=== PATIENT | male | born 1945 | race Caucasian/White ===

== ENCOUNTER 2021-01-17 14:09 | Inpatient (IN) ==
[2021-01-17] MEDS ORDERED: SODIUM CHLORIDE 0.9% 500 ML IV STA (14:21)
--- NOTE | 2021-01-17 14:28 | Emergency Department Note ---
Impression & Plan 2019 novel coronavirus-infected pneumonia (NCIP), Non-ST elevation NM (NSTEMI), Weakness, Dehydration, Hypoxia, Hypokalemia ED Provider Note Provider: Wilton Woodward MD DATE OF SERVICE: 01/17/2021 CHIEF COMPLAINT: Weakness, hypoxia HISTORY OF PRESENT ILLNESS: Patient is a 75-year-old gentleman patient presenting via ambulance today for hypoxia and increased weakness. Patient has a PEG tube and has been receiving feedings. Patient evidently tested positive for Covid on the fifth of this month. Patient is unvaccinated for Covid. Patient's been more weak and now requiring additional assistance to ambulate and transfer and was noted to be hypoxic into the 80s on room air patient does not normally on oxygen. Has been receiving dexamethasone for the last several days since January 13. Patient's outpatient x-ray had question of possible pneumonia and the patient has completed 4 days of Levaquin 750 mg by mouth. Patient denies pain to me on exam but is very fatigued and difficult to get a clear history from. Past medical history includes type 2 diabetes, CAD, CKD, and myasthenia gravis. REVIEW OF SYSTEMS: A total of 10 review of systems was obtained and negative except as stated above in the HPI. PAST MEDICAL HISTORY: As noted above MEDICATIONS: reviewed home/fpc facility medication list SOCIAL HISTORY: Resides at [facility] PHYSICAL EXAM: GENERAL: alert to verbal stimuli but appears quite fatigued and not the best historian regarding recent events Head: normocephalic and atraumatic EYES: No injection, discharge or icterus. PERRL NECK: Trachea midline. Supple. ENT: Mucous membranes pink and somewhat dry. LUNGS: Airway patent. No retractions. Breath sounds clear HEART: Regular rate and rhythm. No chest wall tenderness ABDOMEN: Soft and non-tender, without guarding or rebound. With left upper quadrant PEG tube in place. SKIN: Acyanotic, warm, dry, without rashes EXTREMITIES: Without significant swelling of the lower extremities. No significant tenderness at the lower calves. NEUROLOGICAL: Patient moving all extremities with some minimally dysarthric at some times. He is quite hard of hearing. Follows simple commands. EK bpm normal sinus rhythm no PVC or PAC. QTc of 594. Incomplete left bundle branch block is present with diffuse T wave inversions noted. CONTINUOUS CARDIAC MONITORING: was ordered and showed a heart rate of 60-80s bpm in sinus rhythm with incomplete left bundle branch block. Patient's laboratory studies and imaging reviewed. Differential includes Infection, dehydration, metabolic abnormality, hypo/hyperglycemia, electrolyte disturbance, anemia, hypoxia, cardiac sources, i ntracerebral event, toxicologic, neurologic, as well as other pathologies. IMPRESSION/MEDICAL DECISION MAKING: Patient positive for Covid now hypoxic. Has been receiving dexamethasone including earlier today. Patient outpatient x-ray is concerning for pneumonia and completed 4 days of Levaquin. Patient is on amiodarone and appears to have an prolonged QTC here today. Will avoid additional QT prolonging medications. Patient did receive the dexamethasone already today. Now on supplemental nasal cannula oxygen. Basic labs were obtained. Patient without significant cytosis and minimal anemia of 13.3. CKD with a creatinine 1.96 and BUN of 56 with his dry mucous membranes I am somewhat concerned for dehydration. Given a small 500 mL IV fluid bolus. Troponin is elevated 0.38 although the patient does not currently have chest pain. Question of his demand from his hypoxia. Mild hy pokalemia noted and some placement is ordered given the QTC prolongation. Lower suspicion that he is acutely suffering from PEs given his + Covid status and minimal hypoxia here. Feel at this time further care as an inpatient is needed. Do not feel additional antibiotics would be that beneficial at this point will defer any to the inpatient team. Patient is reportedly full code. DIAGNOSIS: COVID-19 pneumonia, hypoxia, NSTEMI, weakness, dehydration DISPOSITION: Hospitalist will evaluate Critical Care I have personally spent 32 minutes of critical care time in the direct management of this patient. This includes bedside care, interpretation of diagnostic studies, and testing, discussion with consultants, patient, and other required patient management activities. These 32 minutes is in excess of all separately billable procedures. Past Med/Surg History Social History Smoking Status: Unknown if ever smoked Feels Safe at Home: Yes Allergies Allergies Allergy/AdvReac Type Severity Reaction Status Date / Time oxytetracycline Allergy Unknown Verified 01/17/21 17:04 [From Terramycin] Penicillins Allergy Unknown Verified 01/17/21 17:04 Tetracyclines Allergy Unknown Verified 01/17/21 17:04 Home Meds Home Medications Medication Instructions Recorded Confirmed acetaminophen 325 mg tablet 650 mg FEEDING TUBE Q4 PRN 01/17/21 01/17/21 (Tylenol) allopurinol 100 mg tablet 100 mg FEEDING TUBE DAILY 10/09/21 10/09/21 amiodarone 200 mg tablet 200 mg FEEDING TUBE DAILY 01/17/21 01/17/21 atorvastatin 40 mg tablet 40 mg FEEDING TUBE QPM 01/17/21 01/17/21 carvedilol 6.25 mg tablet 6.25 mg FEEDING TUBE BID 01/17/21 01/17/21 cholecalciferol (vitamin D3) 25 25 mcg FEEDING TUBE DAILY 01/17/21 01/17/21 mcg (1,000 unit) capsule (Vitamin D3) clopidogrel 75 mg tablet 75 mg FEEDING TUBE DAILY 01/17/21 01/17/21 dexamethasone 6 mg tablet 6 mg PO DAILY 01/17/21 01/17/21 famotidine 20 mg tablet 20 mg FEEDING TUBE DAILY 01/17/21 01/17/21 furosemide 20 mg tablet 20 mg FEEDING TUBE QAM 01/17/21 01/17/21 guaifenesin 100 mg/5 mL oral 0 mg PO Q4H PRN 01/17/21 01/17/21 liquid (Robafen) hydralazine 10 mg tablet 5 mg FEEDING TUBE BID 01/17/21 01/17/21 insulin glargine 100 unit/mL (3 14 unit SUBCUT HS 01/17/21 01/17/21 mL) subcutaneous pen (Lantus Solostar U-100 Insulin) ipratropium 0.5 mg-albuterol 3 mg 3 ml INHALATION Q4 PRN 01/17/21 01/17/21 (2.5 mg base)/3 mL nebulization soln isosorbide dinitrate 10 mg tablet 10 mg FEEDING TUBE TID 01/17/21 01/17/21 levofloxacin 750 mg tablet 750 mg FEEDING TUBE DAILY 01/17/21 01/17/21 loperamide 2 mg tablet 2 mg FEEDING TUBE QID PRN 01/17/21 01/17/21 melatonin 5 mg tablet 10 mg PO HS 01/17/21 01/17/21 nut.tx.imp.renal fxn,lac-reduc 237 ea FEEDING TUBE QID 01/17/21 01/17/21 0.04 gram-1.8 kcal/mL oral liquid (Suplena Carb Steady) ondansetron HCl 4 mg tablet 4 mg PO Q6H PRN 01/17/21 01/17/21 (Zofran) potassium chloride 20 mEq 20 meq PO DAILY 01/17/21 01/17/21 tablet,extended release(part/cryst) pyridostigmine bromide 60 mg tablet 60 mg FEEDING TUBE TID 01/17/21 01/17/21 Results & Data (ED) Vital Signs Vital Signs - 24 hr 01/17/21 14:20 01/17/21 14:21 01/17/21 14:30 Temperature 36.9 C Temperature Source Oral Pulse Rate 66 71 68 Pulse Rate from SpO2 Sensor 66 69 Respiratory Rate 18 31 H 20 Respiratory Effort / Characteristics Non-Labored Respiratory Depth Normal Respiratory Pattern Regular Blood Pressure 152/73 H Blood Pressure Mean 99 Pulse Oximetry 97 95 94 Oxygen Delivery Method Nasal Cannula Oxygen Flow Rate 3 Sepsis Recent Fever Within 48 Hours No Sepsis New/Unexplained Change in Mental Status No Sepsis Action Taken by Nursing No Action Required Oxygen Flow Rate - Titration 3 Pulse Oximetry Post Tiitration 97 01/17/21 15:00 01/17/21 15:30 01/17/21 16:00 Temperature Temperature Source Pulse Rate 66 65 68 Pulse Rate from SpO2 Sensor 62 Respiratory Rate 27 H 22 22 Respiratory Effort / Characteristics Respiratory Depth Respiratory Pattern Blood Pressure 145/67 H 156/68 H 151/65 H Blood Pressure Mean 93 97 93 Pulse Oximetry 96 96 97 Oxygen Delivery Method Nasal Cannula Oxygen Flow Rate 3 Sepsis Recent Fever Within 48 Hours Sepsis New/Unexplained Change in Mental Status Sepsis Action Taken by Nursing Oxygen Flow Rate - Titration Pulse Oximetry Post Tiitration 01/17/21 16:30 01/17/21 17:00 01/17/21 17:30 Temperature Temperature Source Pulse Rate 63 61 63 Pulse Rate from SpO2 Sensor Respiratory Rate 22 22 22 Respiratory Effort / Characteristics Respiratory Depth Respiratory Pattern Blood Pressure 155/65 H 148/67 H Blood Pressure Mean 95 94 Pulse Oximetry 95 96 95 Oxygen Delivery Method Nasal Cannula Oxygen Flow Rate 3 Sepsis Recent Fever Within 48 Hours Sepsis New/Unexplained Change in Mental Status Sepsis Action Taken by Nursing Oxygen Flow Rate - Titration Pulse Oximetry Post Tiitration 01/17/21 18:00 01/17/21 18:30 Temperature Temperature Source Pulse Rate 60 63 Pulse Rate from SpO2 Sensor Respiratory Rate 22 22 Respiratory Effort / Characteristics Respiratory Depth Respiratory Pattern Blood Pressure 157/86 H Blood Pressure Mean 109 Pulse Oximetry 95 93 Oxygen Delivery Method Nasal Cannula Oxygen Flow Rate 3 Sepsis Recent Fever Within 48 Hours Sepsis New/Unexplained Change in Mental Status Sepsis Action Taken by Nursing Oxygen Flow Rate - Titration Pulse Oximetry Post Tiitration Laboratory Data Result diagrams: 01/17/21 14:20 01/17/21 14:20 Lab Results 01/17/21 01/17/21 01/17/21 Range/Units 14:20 14:20 14:20 WBC 8.92 (4.8-10.8) K/uL RBC 4.05 L (4.7-6.1) M/uL Hgb 13.3 L (14.0-18.0) g/dL Hct 39.7 L (42-52) % MCV 98.0 (80-100) fL MCH 32.8 (25-34) pg MCHC 33.5 (32-36) g/dL RDW Std Deviation 48.1 H (36.4-46.3) fL RDW Coeff of Rodo 13.3 (11.5-14.5) % Plt Count 171 (130-400) K/uL MPV 12.1 H (7.4-10.4) fL Immature Gran % (Auto) 0.3 % Neut % (Auto) 84.6 % Lymph % (Auto) 12.4 % [place] % (Auto) 2.5 % Eos % (Auto) 0.0 % Baso % (Auto) 0.2 % Neut # (Auto) 7.54 H (1.4-6.5) K/uL Lymph # (Auto) 1.11 L (1.2-3.4) K/uL [place] # (Auto) 0.22 (0.11-0.59) K/uL Eos # (Auto) 0.00 (0-0.5) K/uL Baso # (Auto) 0.02 (0-0.2) K/uL Immature Gran # (Auto) 0.03 H (0.00-0.02) K/uL PT 10.6 (9.0-12.0) Seconds INR 1.0 (0.9-1.1) APTT 27.3 (21.0-31.0) Seconds PTT Ratio 1.0 Sodium 142 (136-145) mmol/L Potassium 3.3 L (3.5-5.1) mmol/L Chloride 102 (98-107) mmol/L Carbon Dioxide 32 (21-32) mmol/L Anion Gap 8.0 (3-11) BUN 56 H (7-18) mg/dl Creatinine 1.96 H (0.6-1.4) mg/dl Est Cr Clr Drug Dosing 35.7 ml/min Est GFR ( Amer) 37.7 ml/min Est GFR (Non-Af Amer) 32.5 ml/min BUN/Creatinine Ratio 28.5 H (10-20) Glucose 378 H* (70-99) mg/dl Calcium 8.5 (8.5-10.1) mg/dl Magnesium 2.5 H (1.8-2.4) mg/dl Total Bilirubin 0.6 (0.2-1) mg/dl AST 85 H (15-37) U/L ALT 52 (12-78) U/L Alkaline Phosphatase 82 (45-117) U/L Troponin I 0.380 H* (0-0.045) ng/ml Total Protein 6.1 L (6.4-8.2) gm/dl Albumin 1.9 L (3.4-5.0) gm/dl Globulin 4.2 H (2.5-4.0) gm/dl Albumin/Globulin Ratio 0.5 L (0.9-2) Beta-Hydroxybutyric Acd 1.86 (0.2-2.81) mg/dl Specimen Hemolysis COVID-19 Eval Order SARS-CoV-2 (PCR) (Negative) 01/17/21 01/17/21 Range/Units 14:20 14:20 WBC (4.8-10.8) K/uL RBC (4.7-6.1) M/uL Hgb (14.0-18.0) g/dL Hct (42-52) % MCV (80-100) fL MCH (25-34) pg MCHC (32-36) g/dL RDW Std Deviation (36.4-46.3) fL RDW Coeff of Rodo (11.5-14.5) % Plt Count (130-400) K/uL MPV (7.4-10.4) fL Immature Gran % (Auto) % Neut % (Auto) % Lymph % (Auto) % [place] % (Auto) % Eos % (Auto) % Baso % (Auto) % Neut # (Auto) (1.4-6.5) K/uL Lymph # (Auto) (1.2-3.4) K/uL [place] # (Auto) (0.11-0.59) K/uL Eos # (Auto) (0-0.5) K/uL Baso # (Auto) (0-0.2) K/uL Immature Gran # (Auto) (0.00-0.02) K/uL PT (9.0-12.0) Seconds INR (0.9-1.1) APTT (21.0-31.0) Seconds PTT Ratio Sodium (136-145) mmol/L Potassium (3.5-5.1) mmol/L Chloride (98-107) mmol/L Carbon Dioxide (21-32) mmol/L Anion Gap (3-11) BUN (7-18) mg/dl Creatinine (0.6-1.4) mg/dl Est Cr Clr Drug Dosing ml/min Est GFR ( Amer) ml/min Est GFR (Non-Af Amer) ml/min BUN/Creatinine Ratio (10-20) Glucose (70-99) mg/dl Calcium (8.5-10.1) mg/dl Magnesium (1.8-2.4) mg/dl Total Bilirubin (0.2-1) mg/dl AST (15-37) U/L ALT (12-78) U/L Alkaline Phosphatase (45-117) U/L Troponin I (0-0.045) ng/ml Total Protein (6.4-8.2) gm/dl Albumin (3.4-5.0) gm/dl Globulin (2.5-4.0) gm/dl Albumin/Globulin Ratio (0.9-2) Beta-Hydroxybutyric Acd (0.2-2.81) mg/dl Specimen Hemolysis COVID-19 Eval Order Covid19 at [facility] SARS-CoV-2 (PCR) POSITIVE A* (Negative) Administered Medications Discontinued Medications Sodium Chloride (Nss) 500 mls @ 999 mls/hr IV .Q31M STA Stop: 01/17/21 14:51 Last Infusion: 01/17/21 15:31 Dose: 0 mls/hr Documented by: [id number] Admin: 01/17/21 14:37 Dose: 999 mls/hr Documented by: [id number] Potassium Chloride (K Kashif / Wtr) 10 meq in 100 mls @ 100 mls/hr IV ONE ONE Stop: 01/17/21 16:37 Last Infusion: 01/17/21 18:33 Dose: 0 mls/hr Documented by: [id number] Admin: 01/17/21 16:55 Dose: 100 mls/hr Documented by: [id number] Potassium Chloride (Potassium Chloride 20 Meq/15 Ml Udc) 20 meq PO NOW STA Stop: 01/17/21 15:39 Last Admin: 01/17/21 16:54 Dose: 20 meq Documented by: [id number] Imaging Data Radiologist's Impression: Chest X-Ray 01/17/21 14:21 XR chest 1V portable HISTORY: 75 years-old Male Dyspnea/COVID acute shortness of breath with possible viral pneumonia. COMPARISON: None TECHNIQUE: Portable AP view of the chest FINDINGS: Cardiac silhouette is enlarged. Prior median sternotomy. Left subclavian pacer/AICD. Mild right hemidiaphragmatic elevation. No pneumothorax or large pleural effusion. Blunting of the right costophrenic angle. Asymmetric interstitial opacities of the right lung. Degenerative changes of the shoulders and spine. IMPRESSION: Cardiomegaly with interstitial opacities of the right lung suggestive of asymmetric pulmonary edema versus interstitial pneumonitis. ACT 112: Negative or not required by law. The above report was generated using voice recognition software. It may contain grammatical, syntax or spelling errors. Electronically signed by: Hector Oreilly M.D. 01/17/2021 3:39 PM Discharge Plan Visit Data Chief Complaint: Respiratory Problems ED Provider: Wilton Woodward Discharge Problem: 2019 novel coronavirus-infected pneumonia (NCIP), Non-ST elevation NM (NSTEMI), Weakness, Dehydration, Hypoxia, Hypokalemia Patient Disposition: Admitted As Inpatient Condition: Fair Forms Stand Alone Forms: My [employer] Prescriptions Prescriptions: No Action isosorbide dinitrate 10 mg tablet 10 mg feeding tube TID RF: 0 atorvastatin 40 mg tablet 40 mg feeding tube QPM RF: 0 hydralazine 10 mg Tablet 5 mg feeding tube BID RF: 0 acetaminophen [Tylenol] 325 mg Tablet 650 mg feeding tube Q4 PRN (Reason: Fever Or Pain) RF: 0 carvedilol 6.25 mg Tablet 6.25 mg feeding tube BID RF: 0 ipratropium-albuterol 0.5 mg-3 mg(2.5 mg base)/3 mL Solution For Nebulization 3 ml INHALATION Q4 PRN (Reason: weezing/dyspnea) RF: 0 amiodarone 200 mg tablet 200 mg feeding tube DAILY RF: 0 ondansetron HCl [Zofran] 4 mg Tablet 4 mg PO Q6H PRN (Reason: Nausea) RF: 0 dexamethasone 6 mg Tablet 6 mg PO DAILY RF: 0 loperamide [Anti-Diarrhea] 2 mg Tablet 2 mg feeding tube QID PRN (Reason: Diarrhea) RF: 0 clopidogrel 75 mg tablet 75 mg feeding tube DAILY RF: 0 allopurinol 100 mg tablet 100 mg feeding tube DAILY RF: 0 guaifenesin [Robafen] 100 mg/5 mL Liquid 0 mg PO Q4H PRN (Reason: Cough) RF: 0 potassium chloride 20 mEq Tablet,Er Particles/Crystals 20 meq PO DAILY RF: 0 famotidine 20 mg Tablet 20 mg feeding tube DAILY RF: 0 pyridostigmine bromide 60 mg tablet 60 mg feeding tube TID RF: 0 furosemide 20 mg tablet 20 mg feeding tube QAM RF: 0 levofloxacin [Levaquin] 750 mg Tablet 750 mg feeding tube DAILY RF: 0 cholecalciferol (vitamin D3) [Vitamin D3] 25 mcg (1,000 unit) Capsule 25 mcg feeding tube DAILY RF: 0 Lantus Solostar U-100 Insulin 100 unit/mL (3 mL) insulin pen 14 unit SUBCUT HS RF: 0 Suplena Carb Steady 0.04 gram-1.8 kcal/mL Liquid 237 ea feeding tube QID RF: 0 melatonin 5 mg Tablet 10 mg PO HS RF: 0 Referrals Referrals: PCP,NO [Physician] -
[2021-01-17 14:32] LABS: Basophils # (auto) 0.02 K/uL (0-0.2); Basophils % (auto) 0.2 %; Hematocrit (blood only) 39.7 % (42-52); Hemoglobin 13.3 g/dL (14.0-18.0); Immature Granulocytes # (auto) 0.03 K/uL (0.00-0.02); Immature Granulocytes % (auto) 0.3 %; Lymphocytes # (auto) 1.11 K/uL (1.2-3.4); Lymphocytes % (auto) 12.4 %; Mean Corpuscular Hemoglobin 32.8 pg (25-34); Mean Corpuscular Hgb Conc 33.5 g/dL (32-36); Mean Platelet Volume 12.1 fL (7.4-10.4); Monocytes # (auto) 0.22 K/uL (0.11-0.59); Monocytes % (auto) 2.5 %; Neutrophils # (auto) 7.54 K/uL (1.4-6.5); Neutrophils % (auto) 84.6 %; Platelet Count 171 K/uL (130-400); RDW Coefficient of Variation 13.3 % (11.5-14.5); RDW Standard Deviation 48.1 fL (36.4-46.3); Red Blood Count 4.05 M/uL (4.7-6.1); White Blood Count 8.92 K/uL (4.8-10.8)
[2021-01-17 15:00] LABS: Partial Thromboplastin Time 27.3 Seconds (21.0-31.0); Prothrombin Time 10.6 Seconds (9.0-12.0)
[2021-01-17 15:02] LABS: Albumin Globulin Ratio 0.5 (0.9-2); Albumin Level 1.9 gm/dl (3.4-5.0); BUN Creatinine Ratio 28.5 (10-20); Bilirubin,Total 0.6 mg/dl (0.2-1); Calcium 8.5 mg/dl (8.5-10.1); Creatinine Clr Calc Pharmacy 35.7 ml/min; Est GFR (African American) 37.7 ml/min; Est GFR (Non-African American) 32.5 ml/min; Globulin 4.2 gm/dl (2.5-4.0); Magnesium 2.5 mg/dl (1.8-2.4); Potassium 3.3 mmol/L (3.5-5.1); Total Protein 6.1 gm/dl (6.4-8.2); Troponin I 0.38 ng/ml (0-0.045)
[2021-01-17 15:17] LABS: Beta-Hydroxybutyrate 1.86 mg/dl (0.2-2.81)
[2021-01-17] MEDS ORDERED: POTASSIUM CHLORIDE / WTR 10 MEQ/100 ML PLCT IV ONE (15:38)
[2021-01-17] MEDS ORDERED: POTASSIUM CHLORIDE 20 MEQ/15 ML UDC PO STA (15:38)
--- NOTE | 2021-01-17 15:40 | XRay Report ---
XR chest 1V portable HISTORY: 75 years-old Male Dyspnea/COVID acute shortness of breath with possible viral pneumonia. COMPARISON: None TECHNIQUE: Portable AP view of the chest FINDINGS: Cardiac silhouette is enlarged. Prior median sternotomy. Left subclavian pacer/AICD. Mild right hemid iaphragmatic elevation. No pneumothorax or large pleural effusion. Blunting of the right costophrenic angle. Asymmetric interstitial opacities of the right lung. Degenerative changes of the shoulders an d spine. IMPRESSION: Cardiomegaly with interstitial opacities of the right lung suggestive of asymmetric pulmo nary edema versus interstitial pneumonitis. ACT 112: Negative or not required by law. The above report was generated using voice recognition software. It may contain grammatical, syntax o r spelling errors. Electronically signed by: Hector Oreilly M.D. 01/17/2021 3:39 PM
[2021-01-17] MEDS ORDERED: ALBUT/IPRATROP 3MG/0.5MG NEB 3 ML VIAL INH PRN (20:19)
[2021-01-17] MEDS ORDERED: GLUCAGON FOR INJ 1 MG VIAL SQ PRN (20:19)
[2021-01-17] MEDS ORDERED: GLUCOSE 10 TABS/TUBE PO PRN (20:19)
[2021-01-17] MEDS ORDERED: GLUCOSE 40% GEL 15 GM TUBE PO PRN (20:19)
[2021-01-17] MEDS ORDERED: guaiFENesin SUGAR FREE 100 MG/5 ML UDC PO PRN (20:19)
[2021-01-17] MEDS ORDERED: CARBOHYDRATES FOR HYPOGLYCEMIA PO PRN (20:19)
[2021-01-17] MEDS ORDERED: DEXTROSE 50% 50 ML SYRINGE IV PRN (20:19)
[2021-01-17] MEDS ORDERED: ACETAMINOPHEN SUSP 325 MG/10.15 ML UDC PEG PRN (20:45)
[2021-01-17] MEDS ORDERED: ONDANSETRON 4 MG OD TAB PO PRN (20:58)
[2021-01-17] MEDS ORDERED: INSULIN GLARGINE SOLOSTAR 100 UNITS/ML 3 ML PEN SQ SCH ×2 (21:00→21:30)
[2021-01-17] MEDS ORDERED: [UNRECOGNIZED DRUG - OTHER] feeding tube SCH (21:00)
[2021-01-17] MEDS ORDERED: INSULIN ASPART 100 UNITS/ML 3 ML PEN SC SCH ×2 (21:00→21:20)
[2021-01-17] MEDS ORDERED: NUT TX IMP RENAL FXN LAC REDUC feeding tube SCH (21:00)
[2021-01-17] MEDS: ATORVASTATIN 40 MG TAB PEG SCH (21:27)
[2021-01-17] MEDS: hydrALAZINE 10 MG TAB PEG SCH (21:28)
[2021-01-17] MEDS: HEPARIN SOD 5,000 UNIT/0.5 ML VIAL SQ SCH (21:30)
[2021-01-17] MEDS: carvediloL 6.25 MG TAB PEG SCH (21:31)
[2021-01-17] MEDS: dexAMETHasone 6 MG in SYRINGE 0 ML IV SCH (22:07)
[2021-01-17] MEDS: SODIUM CHLORIDE 0.9% 1000ML 1,000 ML IV SCH (22:08)
[2021-01-17] MEDS: [UNRECOGNIZED DRUG - OTHER] PEG SCH (22:08)
[2021-01-17] MEDS: PYRIDOSTIGMINE BROMIDE 60 MG TAB PO SCH (22:29)
[2021-01-17] MEDS: MELATONIN 3 MG TAB PO SCH (22:29)
--- NOTE | 2021-01-18 00:25 | History & Physical Report ---
Date of Service January 17, 2021 Assessment & Plan (1) 2019 novel coronavirus-infected pneumonia (NCIP): (2) Hypoxia: Plan: Acute on chronic respiratory failure with hypoxia Present on admission with worsening SOB associated with weakness and hypoxia Unvaccinated and tested positive for COVID 19 on 01/13 Has been started on Dexamethasone 6mg IV and Levaquin on 01/13 CXR showed cardiomegaly with interstitial opacities of the right lung suggestive of asymmetric pulmonary edema versus interstitial pneumonitis. Will continue dexametasone 6mg daily Will hold on Remdesivir due to HONORIO with creatinine 1.9 on admission Continue neb treatment Continue oxygen supplement Elevated troponin Possible related to demand ischemia due to hypoxia in the setting of COVID 19 EKG showed T wave abnormality, but cannot find any previous EKG to compare Troponin mildly elevated on admission 0.380 Currently patient denies any chest pain Will repeat EKG Will trend troponin Continue plavix and aspirin, statin and carvedilol might consider to start IV heparin drip if pt develops any chest pain HONORIO Mostly related to covid 19 Creatinine 1.9 received IVF Will hold on diuresis for now Will monitor BMP B/L carotid artery stenosis s/p L carotid endarterectomy on 12/03/[address] Rascon Plan to have right carotid endarterectomy that was cancelled due to being positive for COVID 19 Continue Statin/Plavix/Aspirin DM type 2 Blood sugar elevated possible due to steroid Will check Hba1c Continue lantus and insulin sliding scale Continue monitor BS Dysphagia Nothing by mouth continue peg tube feeding AICD Stable DVT px on heparin subq Code status Full code Admission and Anticipated Discharge Date Admission Date: January 17, 2021 History of Present Illness Chief Complaint: Acute on chronic respiratory failure Primary Care Provider: [facility] 75-year-old male with PMH of type 2 diabetes, Dyslipidemia, CAD, HTN, AICD, Dysphagia on peg tube feeding, CKD 3, Myasthenia gravis, B/L carotid artery stenosis with s/p L carotid endarterectomy on 12/03/[address] Rascon present to the ER with worsening SOB due to COVID 19. [facility] and [facility] staff at the [facility]. Unvaccinated pt that was texted positive on January 13 for covid 19 and was started on dexamethasone and Levaquin. As per [facility] staff, his breathing has been getting worst. He is on chronic 2L oxygen, but in the last few days his oxygen supplement was increased to 3L NC and his oxygen saturation saturation was in the 85%. Pt said that he feels fatigue and weak. Denies any chest pain, palpitation, dizziness and fever. Allergies Allergy/AdvReac Type Severity Reaction Status Date / Time oxytetracycline Allergy Unknown Verified 01/17/21 17:04 [From Terramycin] Penicillins Allergy Unknown Verified 01/17/21 17:04 Tetracyclines Allergy Unknown Verified 01/17/21 17:04 Home Medications Medication Instructions Recorded Confirmed Type acetaminophen 325 mg tablet 650 mg FEEDING TUBE Q4 PRN 01/17/21 01/17/21 History (Tylenol) allopurinol 100 mg tablet 100 mg FEEDING TUBE DAILY 01/17/21 01/17/21 History amiodarone 200 mg tablet 200 mg FEEDING TUBE DAILY 01/17/21 01/17/21 History atorvastatin 40 mg tablet 40 mg FEEDING TUBE QPM 01/17/21 01/17/21 History carvedilol 6.25 mg tablet 6.25 mg FEEDING TUBE BID 01/17/21 01/17/21 History cholecalciferol (vitamin D3) 25 25 mcg FEEDING TUBE DAILY 01/17/21 01/17/21 History mcg (1,000 unit) capsule (Vitamin D3) clopidogrel 75 mg tablet 75 mg FEEDING TUBE DAILY 01/17/21 01/17/21 History dexamethasone 6 mg tablet 6 mg PO DAILY 01/17/21 01/17/21 History famotidine 20 mg tablet 20 mg FEEDING TUBE DAILY 01/17/21 01/17/21 History furosemide 20 mg tablet 20 mg FEEDING TUBE QAM 01/17/21 01/17/21 History guaifenesin 100 mg/5 mL oral 0 mg PO Q4H PRN 01/17/21 01/17/21 History liquid (Robafen) hydralazine 10 mg tablet 5 mg FEEDING TUBE BID 01/17/21 01/17/21 History insulin glargine 100 unit/mL (3 14 unit SUBCUT HS 01/17/21 01/17/21 History mL) subcutaneous pen (Lantus Solostar U-100 Insulin) ipratropium 0.5 mg-albuterol 3 mg 3 ml INHALATION Q4 PRN 01/17/21 01/17/21 History (2.5 mg base)/3 mL nebulization soln isosorbide dinitrate 10 mg tablet 10 mg FEEDING TUBE TID 01/17/21 01/17/21 History levofloxacin 750 mg tablet 750 mg FEEDING TUBE DAILY 01/17/21 01/17/21 History loperamide 2 mg tablet 2 mg FEEDING TUBE QID PRN 01/17/21 01/17/21 History melatonin 5 mg tablet 10 mg PO HS 01/17/21 01/17/21 History nut.tx.imp.renal fxn,lac-reduc 237 ea FEEDING TUBE QID 01/17/21 01/17/21 History 0.04 gram-1.8 kcal/mL oral liquid (Suplena Carb Steady) ondansetron HCl 4 mg tablet 4 mg PO Q6H PRN 01/17/21 01/17/21 History (Zofran) potassium chloride 20 mEq 20 meq PO DAILY 01/17/21 01/17/21 History tablet,extended release(part/cryst) pyridostigmine bromide 60 mg tablet 60 mg FEEDING TUBE TID 01/17/21 01/17/21 History Past Med/Surg History Social History Smoking Status: Unknown if ever smoked Preferred Language: Nigerian Communication Ability: Impaired Beliefs That Will Affect Care: None Current Living Situation: [place] Feels Safe at Home: Yes Assistive Devices: Mechanical Lift and Oxygen - Continuous Review of Systems Review of Systems: All systems reviewed & are unremarkable except as noted in HPI & below Physical Exam Physical Exam: General- No acute distress Head- atraumatic Eyes- PERRL, EOMI, ENT- oropharynx clear, decrease hearing function Neck- +bruit, L carotid healing incision scar Lungs- diminished BS Heart- regular rhythm; no murmur Abdomen- normal bowel sounds, soft, +peg tube in place Extremities- no calf tenderness Neuro- alert, oriented x 3; PERRL, EOMI; no facial palsy; no dysarthria Skin- warm & dry Results & Data Results & Data ([facility]) Vital Signs (Past 12 Hours) Vital Signs Temp Pulse Pulse Resp BP BP Pulse Ox 01/17/21 23:33 66 01/17/21 22:57 36.7 C 65 18 137/40 L 92 01/17/21 20:19 36.8 C 77 20 167/76 H 93 01/17/21 18:30 63 22 93 01/17/21 18:00 60 22 157/86 H 95 01/17/21 17:30 63 22 95 01/17/21 17:00 61 22 148/67 H 96 01/17/21 16:30 63 22 155/65 H 95 01/17/21 16:00 68 22 151/65 H 97 01/17/21 15:30 65 22 156/68 H 96 01/17/21 15:00 66 27 H 145/67 H 96 01/17/21 14:30 68 20 94 01/17/21 14:21 71 31 H 95 01/17/21 14:20 36.9 C 66 18 152/73 H 97 Code Status & VTE Plan VTE Prophylaxis Plan VTE Prophylaxis will be ordered: Yes
[2021-01-18] MEDS ORDERED: INSULIN GLARGINE SOLOSTAR 100 UNITS/ML 3 ML PEN SC STA (01:41)
[2021-01-18] MEDS: INSULIN ASPART 100 UNITS/ML 3 ML PEN SC SCH ×6 (04:29→21:17)
[2021-01-18] MEDS: HEPARIN SOD 5,000 UNIT/0.5 ML VIAL SQ SCH ×3 (06:21→19:54)
[2021-01-18] MEDS ORDERED: Nursing to Pharmacy Communication SCH (07:45)
[2021-01-18 07:48] LABS: Hemoglobin 11.5 g/dL (14.0-18.0); Mean Corpuscular Hemoglobin 32.5 pg (25-34); Mean Corpuscular Hgb Conc 32.9 g/dL (32-36); Mean Corpuscular Volume 98.9 fL (80-100); Mean Platelet Volume 11.9 fL (7.4-10.4); Platelet Count 150 K/uL (130-400); RDW Coefficient of Variation 13.5 % (11.5-14.5); RDW Standard Deviation 49.1 fL (36.4-46.3); Red Blood Count 3.54 M/uL (4.7-6.1); White Blood Count 7.22 K/uL (4.8-10.8)
[2021-01-18] MEDS ORDERED: INFLUENZA VACCINE HIGH DOSE PF 65+ 0.7 ML SYR IM ONE (08:00)
[2021-01-18 08:05] LABS: Albumin Level 1.5 gm/dl (3.4-5.0); BUN Creatinine Ratio 30.1 (10-20); Calcium 8.5 mg/dl (8.5-10.1); Creatinine Clr Calc Pharmacy 48.1 ml/min; Est GFR (African American) 54.2 ml/min; Est GFR (Non-African American) 46.8 ml/min; Potassium 3.3 mmol/L (3.5-5.1)
[2021-01-18 08:14] LABS: Bilirubin Direct 0.2 mg/dl (0-0.2); Bilirubin,Total 0.4 mg/dl (0.2-1); Total Protein 5.2 gm/dl (6.4-8.2); Troponin I 0.348 ng/ml (0-0.045)
[2021-01-18] MEDS ORDERED: POTASSIUM PHOS 3 MMOL/1 ML INFUSION IV STA (08:36)
[2021-01-18] MEDS: POTASSIUM CHLORIDE 20 MEQ/15 ML UDC PEG SCH (08:37)
[2021-01-18] MEDS: PYRIDOSTIGMINE BROMIDE 60 MG TAB PO SCH ×3 (08:38→19:55)
[2021-01-18] MEDS: ISOSORBIDE DINITRATE 10 MG TAB PO SCH ×3 (08:38→18:12)
[2021-01-18] MEDS: carvediloL 6.25 MG TAB PEG SCH ×2 (08:38→19:53)
[2021-01-18] MEDS: FAMOTIDINE 20 MG TAB PO SCH (08:38)
[2021-01-18] MEDS: [UNRECOGNIZED DRUG - OTHER] PEG SCH ×4 (08:38→19:55)
[2021-01-18] MEDS: CHOLECALCIFEROL 1,000 UNITS 25 MCG TAB PEG SCH (08:39)
[2021-01-18] MEDS: hydrALAZINE 10 MG TAB PEG SCH ×2 (08:39→19:54)
[2021-01-18] MEDS: AMIODARONE 200 MG TAB PO SCH (08:39)
[2021-01-18] MEDS: CLOPIDOGREL BISULFATE 75 MG TAB PEG SCH (08:39)
[2021-01-18] MEDS: allopurinoL 100 MG TAB PEG SCH (08:40)
[2021-01-18] MEDS ORDERED: DEXAMETHASONE 6 MG PEG SCH (09:00)
[2021-01-18] MEDS ORDERED: POTASSIUM CHLORIDE CRTAB 20 MEQ TABCR PO SCH (09:00)
[2021-01-18] MEDS ORDERED: POTASSIUM PHOSPHATE 15 MMOL in SODIUM CHLORIDE 0.9% 250 ML IV ONE (09:15)
[2021-01-18] MEDS: SODIUM CHLORIDE 0.9% 1000ML 1,000 ML IV SCH (09:18)
[2021-01-18] MEDS: FUROSEMIDE 20 MG TAB PO SCH (09:19)
--- NOTE | 2021-01-18 11:53 | Electrocardiogram Report ---
Test Reason : Blood Pressure : / mmHG Vent. Rate : 070 BPM Atrial Rate : 070 BPM P-R Int : 160 ms QRS Dur : 106 ms QT Int : 550 ms P-R-T Axes : 000 001 186 degrees QTc Int : 594 ms Normal sinus rhythm Incomplete left bundle block Prolonged QT Abnormal ECG No previous ECGs available Confirmed by Olvin Cota [id number]) on 01/18/2021 11:53:13 AM Referred By: Henrry Vital Confirmed By:Olvin Cota
--- NOTE | 2021-01-18 13:39 | Cardiology Consultation ---
Date of Consultation January 18, 2021 Assessment & Plan (1) Abnormal electrocardiogram [ECG] [EKG]: (2) 2019 novel coronavirus-infected pneumonia (NCIP): (3) Ischemic cardiomyopathy: (4) Presence of combination internal cardiac defibrillator (ICD) and pacemaker: Patient is a complex 75-year-old male with history as outlined above who presents with acute hypoxia in association with Covid 19 infection/pneumonia. Chronic medical issues as outlined in HPI. EKG on presentation demonstrates atrial paced rhythm with marked T wave abnormalities consistent with incomplete left bundle branch block, marked QT prolongation. Suspect findings initially are in part due to combination of amiodarone and Levaquin provided prior to hospitalization Troponins are elevated though flat and do not reflect acute myocardial injury, patient asymptomatic in regards to chest pain or angina Recommendations: Continue current treatment of underlying issues. Would recommend daily EKG and avoidance of QT prolonging drugs Treat underlying electrolyte abnormalities and optimize nutrition Would have low threshold for full anticoagulation if any signs of angina. Ultimate goal would be medical therapy History of Present Illness Reason for Consultation: Abnormal EKG, elevated troponin Requesting Physician: Dr. Arcos Attending Physician: Brandon Arcos MD History of Present Illness Patient is a complex 75-year-old male with cardiac issues that include 1. Chronic ischemic heart disease status post coronary bypass grafting 2002, ROCK graft LAD, saphenous vein graft to the diagonal, saphenous vein graft to the marginal. saphenous vein graft to distal right coronary arter, known to be chronically occluded 2013 2. Ischemic cardiomyopathy EF 40-45% with extensive wall motion abnormalities every 2020, inferior inferoseptal scar 3. Status post dual-chamber pacer defibrillator for ventricular tachycardia recurrent with device discharge, [facility] [address] [id number] February 2014, on chronic amiodarone therapy 4. Bilateral carotid artery disease status post left carotid endarterectomy December 03, 2020 5. Cervical osteophytes with chronic aspiration and dysphagia with indwelling PEG tube 6. Dementia 7. Myasthenia gravis 8. Type 2 diabetes mellitus with stage IIIa CKD Patient presents this admission notably recovering from surgery in November at [facility]. Patient observed with dyspnea at rest and hypoxia test positive for Covid19 on 01/13/2021. Patient treated initially with Levaquin and dexamethasone and ultimately referred to [facility] with persistent hypoxia and weakness. EKG on admission demonstrates atrial pacing with marked QT prolongation anterolateral T wave inversion more pronounced than prior studies Patient denies any cardiac complaints per report Troponins elevated but flat in association with acute renal insufficiency/ Allergies Allergy/AdvReac Type Severity Reaction Status Date / Time oxytetracycline Allergy Unknown Verified 01/17/21 17:04 [From Terramycin] Penicillins Allergy Unknown Verified 01/17/21 17:04 Tetracyclines Allergy Unknown Verified 01/17/21 17:04 Home Medications Medication Instructions Recorded Confirmed Type acetaminophen 325 mg tablet 650 mg FEEDING TUBE Q4 PRN 01/17/21 01/17/21 History (Tylenol) allopurinol 100 mg tablet 100 mg FEEDING TUBE DAILY 01/17/21 01/17/21 History amiodarone 200 mg tablet 200 mg FEEDING TUBE DAILY 01/17/21 01/17/21 History atorvastatin 40 mg tablet 40 mg FEEDING TUBE QPM 01/17/21 01/17/21 History carvedilol 6.25 mg tablet 6.25 mg FEEDING TUBE BID 01/17/21 01/17/21 History cholecalciferol (vitamin D3) 25 25 mcg FEEDING TUBE DAILY 01/17/21 01/17/21 History mcg (1,000 unit) capsule (Vitamin D3) clopidogrel 75 mg tablet 75 mg FEEDING TUBE DAILY 01/17/21 01/17/21 History dexamethasone 6 mg tablet 6 mg PO DAILY 01/17/21 01/17/21 History famotidine 20 mg tablet 20 mg FEEDING TUBE DAILY 01/17/21 01/17/21 History furosemide 20 mg tablet 20 mg FEEDING TUBE QAM 01/17/21 01/17/21 History guaifenesin 100 mg/5 mL oral 0 mg PO Q4H PRN 01/17/21 01/17/21 History liquid (Robafen) hydralazine 10 mg tablet 5 mg FEEDING TUBE BID 01/17/21 01/17/21 History insulin glargine 100 unit/mL (3 14 unit SUBCUT HS 01/17/21 01/17/21 History mL) subcutaneous pen (Lantus Solostar U-100 Insulin) ipratropium 0.5 mg-albuterol 3 mg 3 ml INHALATION Q4 PRN 01/17/21 01/17/21 History (2.5 mg base)/3 mL nebulization soln isosorbide dinitrate 10 mg tablet 10 mg FEEDING TUBE TID 01/17/21 01/17/21 History levofloxacin 750 mg tablet 750 mg FEEDING TUBE DAILY 01/17/21 01/17/21 History loperamide 2 mg tablet 2 mg FEEDING TUBE QID PRN 01/17/21 01/17/21 History melatonin 5 mg tablet 10 mg PO HS 01/17/21 01/17/21 History nut.tx.imp.renal fxn,lac-reduc 237 ea FEEDING TUBE QID 01/17/21 01/17/21 History 0.04 gram-1.8 kcal/mL oral liquid (Suplena Carb Steady) ondansetron HCl 4 mg tablet 4 mg PO Q6H PRN 01/17/21 01/17/21 History (Zofran) potassium chloride 20 mEq 20 meq PO DAILY 01/17/21 01/17/21 History tablet,extended release(part/cryst) pyridostigmine bromide 60 mg tablet 60 mg FEEDING TUBE TID 01/17/21 01/17/21 History Patient History Social History Smoking Status: Unknown if ever smoked Preferred Language: Indian Communication Ability: Impaired Beliefs That Will Affect Care: None Current Living Situation: [facility] Feels Safe at Home: Yes Assistive Devices: Mechanical Lift and Oxygen - Continuous Review of Systems Review of Systems: Unobtainable due to mental health condition Physical Exam Physical Exam: Patient was not examined, history and patient data obtained from records and discussion with caregivers Results & Data ([facility]) Vital Signs (Past 12 Hours) Vital Signs Temp Pulse Resp BP Pulse Ox 01/18/21 11:02 36.4 C L 62 18 112/53 L 91 01/18/21 05:26 95 01/18/21 04:58 36.5 C 62 16 138/61 88 L Laboratory Results Laboratory Results - last 24 hr 01/17/21 01/17/21 01/17/21 14:20 14:20 14:20 WBC 8.92 RBC 4.05 L Hgb 13.3 L Hct 39.7 L MCV 98.0 MCH 32.8 MCHC 33.5 RDW Std Deviation 48.1 H RDW Coeff of Rodo 13.3 Plt Count 171 MPV 12.1 H Immature Gran % (Auto) 0.3 Neut % (Auto) 84.6 Lymph % (Auto) 12.4 [place] % (Auto) 2.5 Eos % (Auto) 0.0 Baso % (Auto) 0.2 Neut # (Auto) 7.54 H Lymph # (Auto) 1.11 L [place] # (Auto) 0.22 Eos # (Auto) 0.00 Baso # (Auto) 0.02 Immature Gran # (Auto) 0.03 H PT 10.6 INR 1.0 APTT 27.3 PTT Ratio 1.0 Sodium 142 Potassium 3.3 L Chloride 102 Carbon Dioxide 32 Anion Gap 8.0 BUN 56 H Creatinine 1.96 H Est Cr Clr Drug Dosing 35.7 Est GFR ( Amer) 37.7 Est GFR (Non-Af Amer) 32.5 BUN/Creatinine Ratio 28.5 H Glucose 378 H* POC Glucose Estimat Average Glucose Hemoglobin A1c Calcium 8.5 Phosphorus Magnesium 2.5 H Total Bilirubin 0.6 Direct Bilirubin AST 85 H ALT 52 Alkaline Phosphatase 82 Troponin I 0.380 H* Total Protein 6.1 L Albumin 1.9 L Globulin 4.2 H Albumin/Globulin Ratio 0.5 L Beta-Hydroxybutyric Acd 1.86 Procalcitonin Specimen Hemolysis Nasal Screen MRSA (PCR) COVID-19 Eval Order SARS-CoV-2 (PCR) 01/17/21 01/17/21 01/17/21 14:20 14:20 14:20 WBC RBC Hgb Hct MCV MCH MCHC RDW Std Deviation RDW Coeff of Rodo Plt Count MPV Immature Gran % (Auto) Neut % (Auto) Lymph % (Auto) [place] % (Auto) Eos % (Auto) Baso % (Auto) Neut # (Auto) Lymph # (Auto) [place] # (Auto) Eos # (Auto) Baso # (Auto) Immature Gran # (Auto) PT INR APTT PTT Ratio Sodium Potassium Chloride Carbon Dioxide Anion Gap BUN Creatinine Est Cr Clr Drug Dosing Est GFR ( Amer) Est GFR (Non-Af Amer) BUN/Creatinine Ratio Glucose POC Glucose Estimat Average Glucose Hemoglobin A1c Calcium Phosphorus Magnesium Total Bilirubin Direct Bilirubin AST ALT Alkaline Phosphatase Troponin I Total Protein Albumin Globulin Albumin/Globulin Ratio Beta-Hydroxybutyric Acd Procalcitonin < 0.05 Specimen Hemolysis Nasal Screen MRSA (PCR) COVID-19 Eval Order Covid19 at [facility] SARS-CoV-2 (PCR) POSITIVE A* 01/17/21 01/17/21 01/17/21 20:33 20:34 21:00 WBC RBC Hgb Hct MCV MCH MCHC RDW Std Deviation RDW Coeff of Rodo Plt Count MPV Immature Gran % (Auto) Neut % (Auto) Lymph % (Auto) [place] % (Auto) Eos % (Auto) Baso % (Auto) Neut # (Auto) Lymph # (Auto) [place] # (Auto) Eos # (Auto) Baso # (Auto) Immature Gran # (Auto) PT INR APTT PTT Ratio Sodium Potassium Chloride Carbon Dioxide Anion Gap BUN Creatinine Est Cr Clr Drug Dosing Est GFR ( Amer) Est GFR (Non-Af Amer) BUN/Creatinine Ratio Glucose POC Glucose 316 H* 321 H* Estimat Average Glucose Hemoglobin A1c Calcium Phosphorus Magnesium Total Bilirubin Direct Bilirubin AST ALT Alkaline Phosphatase Troponin I Total Protein Albumin Globulin Albumin/Globulin Ratio Beta-Hydroxybutyric Acd Procalcitonin Specimen Hemolysis Nasal Screen MRSA (PCR) Negative COVID-19 Eval Order SARS-CoV-2 (PCR) 01/17/21 01/18/21 01/18/21 21:20 01:26 01:27 WBC RBC Hgb Hct MCV MCH MCHC RDW Std Deviation RDW Coeff of Rodo Plt Count MPV Immature Gran % (Auto) Neut % (Auto) Lymph % (Auto) [place] % (Auto) Eos % (Auto) Baso % (Auto) Neut # (Auto) Lymph # (Auto) [place] # (Auto) Eos # (Auto) Baso # (Auto) Immature Gran # (Auto) PT INR APTT PTT Ratio Sodium Potassium Chloride Carbon Dioxide Anion Gap BUN Creatinine Est Cr Clr Drug Dosing Est GFR ( Amer) Est GFR (Non-Af Amer) BUN/Creatinine Ratio Glucose POC Glucose 300 H 312 H* Estimat Average Glucose Hemoglobin A1c Calcium Phosphorus Magnesium Total Bilirubin Direct Bilirubin AST ALT Alkaline Phosphatase Troponin I 0.366 H* Total Protein Albumin Globulin Albumin/Globulin Ratio Beta-Hydroxybutyric Acd Procalcitonin Specimen Hemolysis Nasal Screen MRSA (PCR) COVID-19 Eval Order SARS-CoV-2 (PCR) 01/18/21 01/18/21 01/18/21 03:21 07:15 07:15 WBC 7.22 RBC 3.54 L Hgb 11.5 L Hct 35.0 L MCV 98.9 MCH 32.5 MCHC 32.9 RDW Std Deviation 49.1 H RDW Coeff of Rodo 13.5 Plt Count 150 MPV 11.9 H Immature Gran % (Auto) Neut % (Auto) Lymph % (Auto) [place] % (Auto) Eos % (Auto) Baso % (Auto) Neut # (Auto) Lymph # (Auto) [place] # (Auto) Eos # (Auto) Baso # (Auto) Immature Gran # (Auto) PT INR APTT PTT Ratio Sodium 147 H Potassium 3.3 L Chloride 112 H Carbon Dioxide 32 Anion Gap 3.0 BUN 44 H Creatinine 1.45 H D Est Cr Clr Drug Dosing 48.1 Est GFR ( Amer) 54.2 Est GFR (Non-Af Amer) 46.8 BUN/Creatinine Ratio 30.1 H Glucose 168 H POC Glucose 238 H Estimat Average Glucose Hemoglobin A1c Calcium 8.5 Phosphorus Magnesium Total Bilirubin 0.4 Direct Bilirubin 0.2 AST 57 H ALT 38 Alkaline Phosphatase 60 Troponin I 0.348 H* Total Protein 5.2 L Albumin 1.5 L Globulin Albumin/Globulin Ratio Beta-Hydroxybutyric Acd Procalcitonin Specimen Hemolysis Nasal Screen MRSA (PCR) COVID-19 Eval Order SARS-CoV-2 (PCR) 01/18/21 01/18/21 01/18/21 07:15 07:15 08:35 WBC RBC Hgb Hct MCV MCH MCHC RDW Std Deviation RDW Coeff of Rodo Plt Count MPV Immature Gran % (Auto) Neut % (Auto) Lymph % (Auto) [place] % (Auto) Eos % (Auto) Baso % (Auto) Neut # (Auto) Lymph # (Auto) [place] # (Auto) Eos # (Auto) Baso # (Auto) Immature Gran # (Auto) PT INR APTT PTT Ratio Sodium Potassium Chloride Carbon Dioxide Anion Gap BUN Creatinine Est Cr Clr Drug Dosing Est GFR ( Amer) Est GFR (Non-Af Amer) BUN/Creatinine Ratio Glucose POC Glucose 164 H Estimat Average Glucose Pending Hemoglobin A1c Pending Calcium Phosphorus 2.7 Magnesium Total Bilirubin Direct Bilirubin AST ALT Alkaline Phosphatase Troponin I Total Protein Albumin Globulin Albumin/Globulin Ratio Beta-Hydroxybutyric Acd Procalcitonin Specimen Hemolysis Nasal Screen MRSA (PCR) COVID-19 Eval Order SARS-CoV-2 (PCR) 01/18/21 01/18/21 12:03 12:45 WBC RBC Hgb Hct MCV MCH MCHC RDW Std Deviation RDW Coeff of Rodo Plt Count MPV Immature Gran % (Auto) Neut % (Auto) Lymph % (Auto) [place] % (Auto) Eos % (Auto) Baso % (Auto) Neut # (Auto) Lymph # (Auto) [place] # (Auto) Eos # (Auto) Baso # (Auto) Immature Gran # (Auto) PT INR APTT PTT Ratio Sodium Potassium Chloride Carbon Dioxide Anion Gap BUN Creatinine Est Cr Clr Drug Dosing Est GFR ( Amer) Est GFR (Non-Af Amer) BUN/Creatinine Ratio Glucose POC Glucose 239 H 228 H Estimat Average Glucose Hemoglobin A1c Calcium Phosphorus Magnesium Total Bilirubin Direct Bilirubin AST ALT Alkaline Phosphatase Troponin I Total Protein Albumin Globulin Albumin/Globulin Ratio Beta-Hydroxybutyric Acd Procalcitonin Specimen Hemolysis Nasal Screen MRSA (PCR) COVID-19 Eval Order SARS-CoV-2 (PCR)
--- NOTE | 2021-01-18 17:30 | Hospitalist Progress Note ---
Date of Service January 18, 2021 Assessment & Plan (1) 2019 novel coronavirus-infected pneumonia (NCIP): (2) Hypoxia: Plan: Acute on chronic respiratory failure with hypoxia Present on admission with worsening SOB associated with weakness and hypoxia Unvaccinated and tested positive for COVID 19 on 01/13 Has been started on Dexamethasone 6mg IV and Levaquin on 01/13 CXR showed cardiomegaly with interstitial opacities of the right lung suggestive of asymmetric pulmonary edema versus interstitial pneumonitis. Continue dexametasone 6mg daily We did not start on remendesivir due to HONORIO with creatinine 1.9 on admission Continue neb treatment Continue oxygen supplement Elevated troponin Possible related to demand ischemia due to hypoxia in the setting of COVID 19 EKG showed T wave abnormality, but cannot find any previous EKG to compare Troponin mildly elevated on admission 0.380, then trending down 0.348 Currently patient denies any chest pain Continue plavix and aspirin, statin and carvedilol might consider to start IV heparin drip if pt develops any chest pain Cardiology consult We will request EKG from [facility] to compare HONORIO Mostly related to covid 19 Creatinine 1.9 on admisssion received IVF creatinine 1.45 today continue to hold on diuresis Will monitor BMP B/L carotid artery stenosis s/p L carotid endarterectomy on 12/03/[address] Rascon Plan to have right carotid endarterectomy that was cancelled due to being positive for COVID 19 Continue Statin/Plavix/Aspirin DM type 2 Blood sugar elevated possible due to steroid Hba1c pending Continue Lantus and insulin sliding scale Continue monitor BS QT prolongation Possible related to Levaquin Will avoid medication that can increase QT prolongation Will keep K above 4 and mg above 2 Continue monitor EKG Dysphagia Nothing by mouth continue peg tube feeding ICD/Pacemaker Stable DVT px on heparin subq Code status Full code Admission and Anticipated Discharge Date Admission Date: January 17, 2021 Subjective Pt was seen and examined for follow up of SOB due to COVID 19 Lying in bed with no acute distress Pt said that he feels ok Denies any chest pain, palpitation, dizziness and SOB Review of Systems Review of Systems: All systems reviewed & are unremarkable except as noted in Subjective Physical Exam Physical Exam: General- No acute distress Head- atraumatic Eyes- PERRL, EOMI, ENT- oropharynx clear, decrease hearing function Neck- +bruit, L carotid healing incision scar Lungs- diminished BS Heart- regular rhythm; no murmur Abdomen- normal bowel sounds, soft, +peg tube in place Extremities- no calf tenderness Neuro- alert, oriented x 3; PERRL, EOMI; no facial palsy; no dysarthria Skin- warm & dry Results & Data Results & Data ([facility]) Vital Signs (Past 12 Hours) Vital Signs Temp Pulse Resp BP Pulse Ox 01/18/21 17:00 36.3 C L 61 17 126/62 98 01/18/21 11:02 36.4 C L 62 18 112/53 L 91
[2021-01-18] MEDS: ATORVASTATIN 40 MG TAB PEG SCH (19:54)
[2021-01-18] MEDS: dexAMETHasone 6 MG in SYRINGE 0 ML IV SCH (19:54)
[2021-01-18] MEDS: MELATONIN 3 MG TAB PO SCH (20:04)
[2021-01-18] MEDS: INSULIN GLARGINE SOLOSTAR 100 UNITS/ML 3 ML PEN SQ SCH (21:17)
[2021-01-19 06:58] LABS: Calcium 8.2 mg/dl (8.5-10.1); Est GFR (African American) 64.9 ml/min; Magnesium 2.5 mg/dl (1.8-2.4)
[2021-01-19 08:09] LABS: Estimated Average Glucose 203 mg/dl; Hemoglobin A1C 8.7 % (4.5-5.6)
[2021-01-19] MEDS: INSULIN ASPART 100 UNITS/ML 3 ML PEN SC SCH ×4 (09:10→22:25)
[2021-01-19] MEDS: hydrALAZINE 10 MG TAB PEG SCH ×2 (09:11→19:52)
[2021-01-19] MEDS: ISOSORBIDE DINITRATE 10 MG TAB PO SCH ×3 (09:11→19:20)
[2021-01-19] MEDS: PYRIDOSTIGMINE BROMIDE 60 MG TAB PO SCH ×3 (09:11→19:51)
[2021-01-19] MEDS: CHOLECALCIFEROL 1,000 UNITS 25 MCG TAB PEG SCH (09:12)
[2021-01-19] MEDS: HEPARIN SOD 5,000 UNIT/0.5 ML VIAL SQ SCH ×3 (09:12→21:09)
[2021-01-19] MEDS: allopurinoL 100 MG TAB PEG SCH (09:12)
[2021-01-19] MEDS: CLOPIDOGREL BISULFATE 75 MG TAB PEG SCH (09:12)
[2021-01-19] MEDS: POTASSIUM CHLORIDE 20 MEQ/15 ML UDC PEG SCH (09:13)
[2021-01-19] MEDS: carvediloL 6.25 MG TAB PEG SCH ×2 (09:13→19:52)
[2021-01-19] MEDS: [UNRECOGNIZED DRUG - OTHER] PEG SCH (09:13)
[2021-01-19] MEDS: AMIODARONE 200 MG TAB PO SCH (09:13)
[2021-01-19] MEDS: FAMOTIDINE 20 MG TAB PO SCH (09:19)
[2021-01-19] MEDS ORDERED: Nursing to Pharmacy Communication SCH (11:30)
[2021-01-19] MEDS: TUBE FEEDING WATER FLUSH GT SCH ×4 (11:45→22:11)
--- NOTE | 2021-01-19 12:10 | XRay Report ---
SINGLE VIEW CHEST CLINICAL HISTORY: Hypoxia. Covid. FINDINGS: An AP, portable, upright chest radiograph is compared to study dated 01/17/2021. The examina tion is degraded by portable technique, apical lordotic positioning, and patient rotation. A 2-lead c ardiac AICD is unchanged in position and partially obscures the left upper chest. The patient is stat us post midline sternotomy. The heart is enlarged noting atherosclerotic calcification of the thoraci c aorta. There is pulmonary vascular congestion, which is new from 01/17/2021. There are right larger than left pleural effusions with bibasilar consolidation. No pneumothorax is seen. The skeletal struc tures are osteopenic. The bony thorax is grossly intact. Arthritic change is noted in the shoulders a nd thoracic spine. IMPRESSION: 1. Cardiomegaly and AICD with mild pulmonary vascular congestion. 2. There are right larger than left pleural effusions with bibasilar consolidation. ACT 112: Negative or not required by law. Electronically signed by: Babak Marie M.D. 01/19/2021 12:09 PM
--- NOTE | 2021-01-19 14:35 | Electrocardiogram Report ---
Test Reason : Blood Pressure : / mmHG Vent. Rate : 063 BPM Atrial Rate : 300 BPM P-R Int : 216 ms QRS Dur : 096 ms QT Int : 526 ms P-R-T Axes : 059 -02 258 degrees QTc Int : 538 ms Poor data quality, interpretation may be adversely affected Atrial-paced rhythm with prolonged AV conduction Septal infarct , age undetermined Prolonged QT Abnormal ECG When compared with ECG of 17-JAN-2021 14:20, Electronic atrial pacemaker has replaced Sinus rhythm Septal infarct is now Present T wave inversion now evident in Inferior leads QT has shortened Confirmed by Olvin Cota ([id number]) on 01/19/2021 2:35:27 PM Referred By: Henrry Vital Confirmed By:Olvin Cota
[2021-01-19] MEDS ORDERED: PHARMACY GLYCEMIC MGMT CONSULT PRN (14:45)
[2021-01-19] MEDS: PEPTAMEN 1.5 CAL 1,000 ML BAG GT SCH ×4 (14:46→22:26)
[2021-01-19] MEDS: FUROSEMIDE 20 MG TAB PO SCH (14:49)
--- NOTE | 2021-01-19 14:51 | Cardiology Progress Note ---
Date of Service January 19, 2021 Assessment & Plan (1) Abnormal electrocardiogram [ECG] [EKG]: (2) 2019 novel coronavirus-infected pneumonia (NCIP): (3) Ischemic cardiomyopathy: (4) Presence of combination internal cardiac defibrillator (ICD) and pacemaker: Plan: Patient is a complex 75-year-old male with history as outlined above who presents with acute hypoxia in association with Covid 19 infection/pneumonia. Chronic medical issues as outlined in HPI. EKG on presentation demonstrates atrial paced rhythm with marked T wave abnormalities consistent with incomplete left bundle branch block, marked QT prolongation. Suspect findings initially are in part due to combination of amiodarone and Levaquin provided prior to hospitalization Troponins are elevated though flat and do not reflect acute myocardial injury, patient asymptomatic in regards to chest pain or angina EKG 01/19/2021 atrial paced rhythm once again but QT interval shorter. There is T wave inversion and precordial leads Recommendations: Continue current treatment of underlying issues. Would recommend daily EKG and avoidance of QT prolonging drugs Chest x-ray interpretation as congestive heart failure but not manifested in exam. Would keep I's and O's equal. BMP suggest need for additional free water Admission and Anticipated Discharge Date Admission Date: January 17, 2021 Subjective Patient was seen and examined, chart, medications, telemetry reviewed. Patient somewhat disgruntled but denies any cardiac complaints. Specifically denies any chest pain or tachypalpitations. No irritation or tenderness over defibrillator site. Patient requiring oxygen to maintain saturations but lying flat in bed Review of Systems Review of Systems: All systems reviewed & are unremarkable except as noted in Subjective Physical Exam Physical Exam: Patient was not examined, history and patient data obtained from records and discussion with caregivers Constitutional: + ill appearing and + thin; no acute distress Eyes: PERRL, conjunctivae normal, anicteric sclerae ENMT: external ear and nose normal, oropharynx normal Neck: trachea midline, no thyromegaly Respiratory: Auscultation: + crackles Cardiovascular: Rate/Rhythm: regular rate (Atrial paced rhythm) Heart Sounds: normal S1 and normal S2 Vessels: no JVD Extremities: no edema Gastrointestinal (Abdomen): PEG tube in place no focal tenderness Results & Data ([facility]) Vital Signs (Past 12 Hours) Vital Signs Temp Pulse Resp BP Pulse Ox 01/19/21 11:00 36.9 C 60 19 119/63 92 01/19/21 07:17 36.4 C L 60 20 129/58 L 89 L 01/19/21 03:38 36.6 C 74 19 139/67 92 Laboratory Results Laboratory Results - last 24 hr 01/18/21 01/18/21 01/18/21 07:15 17:04 19:58 Sodium Potassium Chloride Carbon Dioxide Anion Gap BUN Creatinine Est Cr Clr Drug Dosing Est GFR ( Amer) Est GFR (Non-Af Amer) BUN/Creatinine Ratio Glucose POC Glucose 203 H 175 H Estimat Average Glucose 203 Hemoglobin A1c 8.7 H Calcium Magnesium 01/19/21 01/19/21 01/19/21 05:59 07:35 11:53 Sodium 147 H Potassium 4.0 D Chloride 113 H Carbon Dioxide 32 Anion Gap 3.0 BUN 39 H Creatinine 1.25 Est Cr Clr Drug Dosing 56.0 Est GFR ( Amer) 64.9 Est GFR (Non-Af Amer) 56.0 BUN/Creatinine Ratio 31.0 H Glucose 128 H POC Glucose 122 H 260 H Estimat Average Glucose Hemoglobin A1c Calcium 8.2 L Magnesium 2.5 H
[2021-01-19] MEDS: ATORVASTATIN 40 MG TAB PEG SCH (19:51)
[2021-01-19] MEDS: dexAMETHasone 6 MG in SYRINGE 0 ML IV SCH (19:51)
[2021-01-19] MEDS: MELATONIN 3 MG TAB PO SCH (21:08)
--- NOTE | 2021-01-19 21:43 | Pharmacy Report ---
Pharmacy Glycemic Short Note 2 - Date of Service January 19, 2021 - Glycemic Short BSG Results (Last 24 hours): 01/19/21 01/19/21 01/19/21 05:59 07:35 11:53 Glucose 128 H POC Glucose 122 H 260 H 01/19/21 01/19/21 14:52 18:47 Glucose POC Glucose 215 H 286 H OUTPATIENT ANTIDIABETIC REGIMEN: * Insulin Glargine 14 units Hs * A1c 8.7% 01/18/21 ASSESSMENT: * Patient with extensive medical history admitted with COVID-19. Patient receiving bolus feeding and dexamethasone 6 mg IV contributing to hyperglycemia * Patient does seem to trend down overnight with lantus administration, 122 mg/dL this morning, will continue current lantus dose * Patient trends upward the rest of the day, will tighten carb ratio this evening and correction factor slightly * Dexamethasone being administered in the evening, will move to AM and begin NPH 0.4 units/kg along with NPH. Did not want to administer NPH at night since patient trends down. PLAN FOR INPATIENT GLYCEMIC CONTROL: * Hold outpatient oral diabetes medications * Basal insulin * Lantus 25 units SQ HS * Bolus insulin * NovoLog per scale ACHS or Q6hrs while NPO * Goal Range: Low 110 mg/dL - High 140 mg/dL * Correction Factor: 18 mg/dL/unit * Nutritional / Prandial insulin per carb ratio of 1 unit per 5 grams CHO consumed PLAN FOR DISCHARGE: * tbd
[2021-01-19] MEDS: INSULIN GLARGINE SOLOSTAR 100 UNITS/ML 3 ML PEN SQ SCH (22:18)
--- NOTE | 2021-01-19 23:43 | Hospitalist Progress Note ---
Date of Service January 19, 2021 Assessment & Plan (1) 2019 novel coronavirus-infected pneumonia (NCIP): (2) Hypoxia: Plan: Acute on chronic respiratory failure with hypoxia Present on admission with worsening SOB associated with weakness and hypoxia Unvaccinated and tested positive for COVID 19 on 01/13 Has been started on Dexamethasone 6mg IV and Levaquin on 01/13 CXR showed cardiomegaly with interstitial opacities of the right lung suggestive of asymmetric pulmonary edema versus interstitial pneumonitis. Continue dexametasone 6mg daily We did not start on remendesivir due to HONORIO with creatinine 1.9 on admission Continue neb treatment Continue oxygen supplement Will give Lasix IV Elevated troponin Possible related to demand ischemia due to hypoxia in the setting of COVID 19 EKG showed T wave abnormality, but cannot find any previous EKG to compare Troponin mildly elevated on admission 0.380, then trending down 0.348 Currently patient denies any chest pain Continue plavix and aspirin, statin and carvedilol might consider to start IV heparin drip if pt develops any chest pain Cardiology consult Requested previous EKG from [facility] to compare HONORIO Mostly related to covid 19 Creatinine 1.9 on admisssion received IVF creatinine 1.2 today Resumed resumed Will monitor BMP B/L carotid artery stenosis s/p L carotid endarterectomy on 12/03/[address] Rascon Plan to have right carotid endarterectomy that was cancelled due to being positive for COVID 19 Continue Statin/Plavix/Aspirin DM type 2 Blood sugar elevated possible due to steroid Hba1c pending Continue Lantus and insulin sliding scale Continue monitor BS QT prolongation Possible related to Levaquin Will avoid medication that can increase QT prolongation Will keep K above 4 and mg above 2 QTC improved Continue monitor EKG Dysphagia Nothing by mouth continue peg tube feeding ICD/Pacemaker Stable DVT px on heparin subq Code status Full code Admission and Anticipated Discharge Date Admission Date: January 17, 2021 Subjective Pt was seen and examined for follow up of SOB due to Covid 19 Lying in bed with no acute distress Pt currently on 9L NC he said that he is not having any difficulty to breath Denies any chest pain, palpitation and fever Review of Systems Review of Systems: All systems reviewed & are unremarkable except as noted in Subjective Physical Exam Physical Exam: General- No acute distress Head- atraumatic Eyes- PERRL, EOMI, ENT- oropharynx clear, decrease hearing function Neck- +bruit, L carotid healing incision scar Lungs- diminished BS Heart- regular rhythm; no murmur Abdomen- normal bowel sounds, soft, +peg tube in place Extremities- no calf tenderness Neuro- alert, oriented x 3; PERRL, EOMI; no facial palsy; no dysarthria Skin- warm & dry Results & Data Results & Data ([facility]) Vital Signs (Past 12 Hours) Vital Signs Temp Pulse Resp BP BP Pulse Ox 01/19/21 22:37 36.5 C 64 20 175/91 H 94 01/19/21 19:13 36.8 C 62 19 155/73 H 91 01/19/21 15:30 36.4 C L 61 19 128/54 L 93
[2021-01-20] MEDS: TUBE FEEDING WATER FLUSH GT SCH ×6 (02:27→21:56)
[2021-01-20] MEDS: HEPARIN SOD 5,000 UNIT/0.5 ML VIAL SQ SCH ×3 (05:50→20:32)
[2021-01-20] MEDS: INSULIN ASPART 100 UNITS/ML 3 ML PEN SC SCH ×5 (07:50→22:21)
[2021-01-20] MEDS: PEPTAMEN 1.5 CAL 1,000 ML BAG GT SCH ×5 (08:01→22:01)
[2021-01-20] MEDS: dexAMETHasone 6 MG in SYRINGE 0 ML IV SCH (08:01)
[2021-01-20] MEDS: ISOSORBIDE DINITRATE 10 MG TAB PO SCH ×3 (08:06→17:50)
[2021-01-20] MEDS: PYRIDOSTIGMINE BROMIDE 60 MG TAB PO SCH ×3 (08:06→19:24)
[2021-01-20] MEDS: POTASSIUM CHLORIDE 20 MEQ/15 ML UDC PEG SCH (08:06)
[2021-01-20] MEDS: carvediloL 6.25 MG TAB PEG SCH ×2 (08:07→19:24)
[2021-01-20] MEDS: FAMOTIDINE 20 MG TAB PO SCH (08:07)
[2021-01-20] MEDS: FUROSEMIDE 20 MG TAB PO SCH (08:07)
[2021-01-20] MEDS: allopurinoL 100 MG TAB PEG SCH (08:08)
[2021-01-20] MEDS: AMIODARONE 200 MG TAB PO SCH (08:08)
[2021-01-20] MEDS: CHOLECALCIFEROL 1,000 UNITS 25 MCG TAB PEG SCH (08:09)
[2021-01-20] MEDS: CLOPIDOGREL BISULFATE 75 MG TAB PEG SCH (08:09)
[2021-01-20] MEDS: hydrALAZINE 10 MG TAB PEG SCH ×2 (08:10→19:23)
[2021-01-20] MEDS ORDERED: INSULIN HUMAN NPH SC SCH (09:00)
[2021-01-20] MEDS ORDERED: FUROSEMIDE 40 MG in SYRINGE 0 ML IV ONE (11:19)
--- NOTE | 2021-01-20 11:34 | Cardiology Progress Note ---
Date of Service January 20, 2021 Assessment & Plan (1) Abnormal electrocardiogram [ECG] [EKG]: (2) 2019 novel coronavirus-infected pneumonia (NCIP): (3) Ischemic cardiomyopathy: (4) Presence of combination internal cardiac defibrillator (ICD) and pacemaker: Plan: Patient is a complex 75-year-old male with history as outlined above who presents with acute hypoxia in association with Covid 19 infection/pneumonia. Chronic medical issues as outlined in HPI. EKG on presentation demonstrates atrial paced rhythm with marked T wave abnormalities consistent with incomplete left bundle branch block, marked QT prolongation. Suspect findings initially are in part due to combination of amiodarone and Levaquin provided prior to hospitalization Troponins are elevated though flat and do not reflect acute myocardial injury, patient asymptomatic in regards to chest pain or angina EKG 01/19/2021 atrial paced rhythm once again but QT interval shorter. There is T wave inversion and precordial leads Oxygen demands have increased and inputs are positive Recommendations: Would give dose of furosemide IV today follow electrolytes. Repeat EKG in a.m. Admission and Anticipated Discharge Date Admission Date: January 17, 2021 Subjective Patient's chart, telemetry was reviewed in detail. Care discussed with caregivers. Patient not personally examined Patient's oxygen demands have increased. No complaints of chest pain no tachyarrhythmias or defibrillator activation Telemetry reveals atrial paced rhythm without arrhythmia Results & Data ([facility]) Vital Signs (Past 12 Hours) Vital Signs Temp Pulse Pulse Pulse Resp BP BP 01/20/21 11:12 70 22 01/20/21 10:20 01/20/21 08:19 63 20 01/20/21 08:06 36.7 C 64 22 139/70 01/20/21 05:15 36.3 C L 66 18 164/67 H 01/20/21 03:39 65 18 01/20/21 00:01 66 18 01/20/21 00:00 60 Pulse Ox 01/20/21 11:12 90 01/20/21 10:20 94 01/20/21 08:19 90 01/20/21 08:06 88 L 01/20/21 05:15 94 01/20/21 03:39 93 01/20/21 00:01 93 01/20/21 00:00 Laboratory Results Laboratory Results - last 24 hr 01/19/21 01/19/21 01/19/21 11:53 14:52 18:47 POC Glucose 260 H 215 H 286 H 01/19/21 01/20/21 22:08 07:42 POC Glucose 276 H 123 H
[2021-01-20] MEDS ORDERED: FUROSEMIDE 40 MG/4 ML VIAL IV ONE ×2 (11:45→15:08)
[2021-01-20 12:08] LABS: Hematocrit (blood only) 36.5 % (42-52); Mean Corpuscular Hemoglobin 32.6 pg (25-34); Mean Corpuscular Hgb Conc 32.9 g/dL (32-36); Mean Corpuscular Volume 99.2 fL (80-100); Mean Platelet Volume 11.7 fL (7.4-10.4); Platelet Count 185 K/uL (130-400); RDW Coefficient of Variation 13.8 % (11.5-14.5); RDW Standard Deviation 49.8 fL (36.4-46.3); Red Blood Count 3.68 M/uL (4.7-6.1); White Blood Count 12.24 K/uL (4.8-10.8)
[2021-01-20 12:37] LABS: BUN Creatinine Ratio 31.8 (10-20); Calcium 8.3 mg/dl (8.5-10.1); Creatinine Clr Calc Pharmacy 54.3 ml/min; Est GFR (African American) 62.4 ml/min; Est GFR (Non-African American) 53.9 ml/min; Potassium 4.9 mmol/L (3.5-5.1)
[2021-01-20] MEDS: ATORVASTATIN 40 MG TAB PEG SCH (19:23)
[2021-01-20] MEDS: MELATONIN 3 MG TAB PO SCH (19:29)
[2021-01-20] MEDS: INSULIN GLARGINE SOLOSTAR 100 UNITS/ML 3 ML PEN SQ SCH (20:32)
[2021-01-20 21:55] LABS: Appearance Urine Clear (Clear); Bacteria Urine Automated Negative (Negative); Bilirubin Urine Negative (Negative); Blood Urine Trace (Negative); Color Urine Yellow; Glucose Urine UA Negative (Negative); Ketones Urine Negative (Negative); Leukocyte Esterase Urine Negative (Negative); Nitrite Urine Negative (Negative); Protein Urine Negative (Negative); RBC Urine Automated 0-4 /hpf (0-4); Specific Gravity Urine 1.012 (1.000-1.030); Urobilinogen Urine Negative (Negative)
--- NOTE | 2021-01-20 23:59 | Hospitalist Progress Note ---
Date of Service January 20, 2021 Assessment & Plan (1) 2019 novel coronavirus-infected pneumonia (NCIP): (2) Hypoxia: Plan: Acute on chronic respiratory failure with hypoxia Present on admission with worsening SOB associated with weakness and hypoxia Unvaccinated and tested positive for COVID 19 on 01/13 Has been started on Dexamethasone 6mg IV and Levaquin on 01/13 CXR showed cardiomegaly with interstitial opacities of the right lung suggestive of asymmetric pulmonary edema versus interstitial pneumonitis. Continue dexametasone 6mg daily We did not start on remendesivir due to HONORIO with creatinine 1.9 on admission Continue neb treatment Continue oxygen supplement Lasix 40mg x1 given today Elevated troponin Possible related to demand ischemia due to hypoxia in the setting of COVID 19 EKG showed T wave abnormality, but cannot find any previous EKG to compare Troponin mildly elevated on admission 0.380, then trending down 0.348 Currently patient denies any chest pain Continue plavix and aspirin, statin and carvedilol might consider to start IV heparin drip if pt develops any chest pain Cardiology consult Requested previous EKG from [facility] to compare Stable HONORIO Mostly related to covid 19 Creatinine 1.9 on admisssion received IVF creatinine 1.2 today Resumed resumed Continue monitor BMP B/L carotid artery stenosis s/p L carotid endarterectomy on 12/03/[address] Rascon Plan to have right carotid endarterectomy that was cancelled due to being positive for COVID 19 Continue Statin/Plavix/Aspirin DM type 2 Blood sugar elevated possible due to steroid Hba1c pending Continue Lantus and insulin sliding scale Continue monitor BS QT prolongation Possible related to Levaquin Will avoid medication that can increase QT prolongation Will keep K above 4 and mg above 2 QTC improved Continue monitor EKG Dysphagia Nothing by mouth continue peg tube feeding ICD/Pacemaker Stable DVT px on heparin subq Code status Full code Admission and Anticipated Discharge Date Admission Date: January 17, 2021 Subjective Pt was seen and examined for follow up of SOB due to Covid 19 Lying in bed with no acute distress Currently on high flow oxygen Continue to ask about when he will be scheduled for his right carotid surgery Denies any chest pain, palpitation Review of Systems Review of Systems: All systems reviewed & are unremarkable except as noted in Subjective Physical Exam Physical Exam: General- No acute distress Head- atraumatic Eyes- PERRL, EOMI, ENT- oropharynx clear, decrease hearing function Neck- +bruit, L carotid healing incision scar Lungs- diminished BS Heart- regular rhythm; no murmur Abdomen- normal bowel sounds, soft, +peg tube in place Extremities- no calf tenderness Neuro- alert, oriented x 3; PERRL, EOMI; no facial palsy; no dysarthria Skin- warm & dry Results & Data Results & Data ([facility]) Vital Signs (Past 12 Hours) Vital Signs Temp Pulse Pulse Pulse Resp BP BP 01/20/21 22:06 36.4 C L 65 20 136/60 01/20/21 19:16 36.4 C L 68 20 150/59 H 01/20/21 18:50 66 01/20/21 18:47 63 22 01/20/21 15:56 72 20 01/20/21 15:26 36.4 C L 60 25 H 146/79 H 01/20/21 13:38 60 22 Pulse Ox 01/20/21 22:06 92 01/20/21 19:16 92 01/20/21 18:50 01/20/21 18:47 93 01/20/21 15:56 92 01/20/21 15:26 98 01/20/21 13:38 98
[2021-01-21] MEDS: TUBE FEEDING WATER FLUSH GT SCH ×6 (03:09→23:41)
[2021-01-21] MEDS: HEPARIN SOD 5,000 UNIT/0.5 ML VIAL SQ SCH ×3 (05:21→20:20)
[2021-01-21] MEDS: ISOSORBIDE DINITRATE 10 MG TAB PO SCH ×3 (06:15→16:08)
[2021-01-21] MEDS: PEPTAMEN 1.5 CAL 1,000 ML BAG GT SCH ×5 (06:18→23:39)
[2021-01-21] MEDS: INSULIN ASPART 100 UNITS/ML 3 ML PEN SC SCH ×5 (07:22→23:58)
[2021-01-21 09:07] LABS: Albumin Level 1.5 gm/dl (3.4-5.0); BUN Creatinine Ratio 36.2 (10-20); C Reactive Protein 4.71 mg/dl (0-0.29); Calcium 8.1 mg/dl (8.5-10.1); Creatinine Clr Calc Pharmacy 54.7 ml/min; Est GFR (Non-African American) 54.4 ml/min; Potassium 4.8 mmol/L (3.5-5.1)
[2021-01-21 09:11] LABS: Albumin Globulin Ratio 0.4 (0.9-2); Bilirubin,Total 0.5 mg/dl (0.2-1); Ferritin 1982.8 ng/ml (8-388); Total Protein 5.5 gm/dl (6.4-8.2)
[2021-01-21] MEDS: dexAMETHasone 6 MG in SYRINGE 0 ML IV SCH (09:41)
[2021-01-21] MEDS: PYRIDOSTIGMINE BROMIDE 60 MG TAB PO SCH ×3 (09:42→20:21)
[2021-01-21] MEDS: hydrALAZINE 10 MG TAB PEG SCH ×2 (09:42→20:21)
[2021-01-21] MEDS: carvediloL 6.25 MG TAB PEG SCH ×2 (09:42→20:21)
[2021-01-21] MEDS: FUROSEMIDE 20 MG TAB PO SCH (09:42)
[2021-01-21] MEDS: FAMOTIDINE 20 MG TAB PO SCH (09:42)
[2021-01-21] MEDS: allopurinoL 100 MG TAB PEG SCH (09:42)
[2021-01-21] MEDS: CHOLECALCIFEROL 1,000 UNITS 25 MCG TAB PEG SCH (09:43)
[2021-01-21] MEDS: CLOPIDOGREL BISULFATE 75 MG TAB PEG SCH (09:43)
[2021-01-21] MEDS: AMIODARONE 200 MG TAB PO SCH (09:43)
[2021-01-21] MEDS: POTASSIUM CHLORIDE 20 MEQ/15 ML UDC PEG SCH (09:43)
[2021-01-21] MEDS: INSULIN HUMAN NPH SC SCH (09:45)
--- NOTE | 2021-01-21 15:01 | Pharmacy Report ---
Pharmacy Glycemic Short Note 2 - Date of Service January 21, 2021 - Glycemic Short BSG Results (Last 24 hours): 01/20/21 01/20/21 01/20/21 16:26 19:36 22:00 Glucose POC Glucose 222 H 197 H 232 H 01/21/21 01/21/21 01/21/21 06:11 06:13 06:37 Glucose POC Glucose 54 L* 64 L* 71 01/21/21 01/21/21 01/21/21 07:51 07:53 11:21 Glucose 164 H POC Glucose 159 H 158 H 01/21/21 14:46 Glucose POC Glucose 206 H OUTPATIENT ANTIDIABETIC REGIMEN: * Insulin Glargine 14 units Hs * A1c 8.7% 01/18/21 ASSESSMENT: 01/21/21 * Patient's BSGs yesterday were [phone] mg/dL. Patient received 135 units of insulin (55 units of basal of which 30 units were NPH and 25 units were lantus and 80 units of bolus). * Fasting today was 54 mg/dL. * Decrease Lantus to home dose of 14 units (50% reduction). Hypoglycemic this morning since dexamethasone shifted to morning. * Increase NPH by 20% to 40 units daily due to elevated BSGs later in the day. * Continue current Novolog orders. Background * Patient with extensive medical history admitted with COVID-19. Patient receiving bolus feeding and dexamethasone 6 mg IV contributing to hyperglycemia * Patient does seem to trend down overnight with lantus administration, 122 mg/dL this morning, will continue current lantus dose * Patient trends upward the rest of the day, will tighten carb ratio this evening and correction factor slightly * Dexamethasone being administered in the evening, will move to AM and begin NPH 0.4 units/kg along with NPH. Did not want to administer NPH at night since patient trends down. PLAN FOR INPATIENT GLYCEMIC CONTROL: * Hold outpatient oral diabetes medications * Basal insulin * Lantus 14 units SQ HS + NPH 40 units SQ daily * Bolus insulin * NovoLog per scale ACHS or Q6hrs while NPO * Goal Range: Low 110 mg/dL - High 140 mg/dL * Correction Factor: 15 mg/dL/unit * Nutritional / Prandial insulin per carb ratio of 1 unit per 4 grams CHO consumed PLAN FOR DISCHARGE: * tbd
--- NOTE | 2021-01-21 15:21 | Cardiology Progress Note ---
Date of Service January 21, 2021 Assessment & Plan (1) Abnormal electrocardiogram [ECG] [EKG]: (2) 2019 novel coronavirus-infected pneumonia (NCIP): (3) Ischemic cardiomyopathy: (4) Presence of combination internal cardiac defibrillator (ICD) and pacemaker: Plan: Patient is a complex 75-year-old male with history as outlined above who presents with acute hypoxia in association with Covid 19 infection/pneumonia. Chronic medical issues as outlined in HPI. EKG on presentation demonstrates atrial paced rhythm with marked T wave abnormalities consistent with incomplete left bundle branch block, marked QT prolongation. Suspect findings initially are in part due to combination of amiodarone and Levaquin provided prior to hospitalization Troponins are elevated though flat and do not reflect acute myocardial injury, patient asymptomatic in regards to chest pain or angina EKG 01/19/2021 atrial paced rhythm once again but QT interval shorter. There is T wave inversion and precordial leads Oxygen demands have increased overall pulmonary status appears to be progressively limiting Weight down 1 kg after diuresis. Rhythm on telemetry atrial paced Recommendations: We will order repeat EKG for a.m. No changes in medical therapies. Admission and Anticipated Discharge Date Admission Date: January 17, 2021 Subjective Patient was seen and personally examined. He denies any acute cardiac complaints. But has required increasing amounts of oxygen supplementation Notes no chest pains no tachypalpitations or arrhythmias. Review of Systems Review of Systems: All systems reviewed & are unremarkable except as noted in Subjective Physical Exam Physical Exam: Patient was not examined, history and patient data obtained from records and discussion with caregivers Constitutional: + ill appearing, + thin and + cachectic Eyes: PERRL, conjunctivae normal, anicteric sclerae ENMT: external ear and nose normal, oropharynx normal Neck: trachea midline, no thyromegaly Respiratory: Auscultation: + crackles and + rhonchi Cardiovascular: Rate/Rhythm: regular rate (Atrial paced rhythm) Heart Sounds: normal S1 and normal S2 Vessels: no JVD Extremities: no edema Gastrointestinal (Abdomen): PEG tube in place Results & Data ([facility]) Vital Signs (Past 12 Hours) Vital Signs Temp Pulse Pulse Pulse Resp BP BP 01/21/21 14:51 64 21 01/21/21 11:35 36.7 C 68 22 140/63 01/21/21 10:06 66 22 01/21/21 08:10 63 01/21/21 07:54 36.6 C 63 22 144/95 H 01/21/21 06:59 66 18 01/21/21 04:30 36.4 C L 62 18 167/81 H Pulse Ox 01/21/21 14:51 90 01/21/21 11:35 91 01/21/21 10:06 93 01/21/21 08:10 01/21/21 07:54 93 01/21/21 06:59 90 01/21/21 04:30 92 Laboratory Results Laboratory Results - last 24 hr 01/20/21 01/20/21 01/20/21 16:26 19:36 21:05 ESR Sodium Potassium Chloride Carbon Dioxide Anion Gap BUN Creatinine Est Cr Clr Drug Dosing Est GFR ( Amer) Est GFR (Non-Af Amer) BUN/Creatinine Ratio Glucose POC Glucose 222 H 197 H Calcium Ferritin Total Bilirubin AST ALT Alkaline Phosphatase C-Reactive Protein Total Protein Albumin Globulin Albumin/Globulin Ratio Urine Color Yellow Urine Appearance Clear Urine pH 5.0 Ur Specific [place] 1.012 Urine Protein Negative Urine Glucose (UA) Negative Urine Ketones Negative Urine Blood Trace H Urine Nitrite Negative Urine Bilirubin Negative Urine Urobilinogen Negative Ur Leukocyte Esterase Negative Urine WBC (Auto) 1-5 Urine RBC (Auto) 0-4 U Hyaline Cast (Auto) 1-5 U Epithel Cells (Auto) 5-10 H Urine Bacteria (Auto) Negative 01/20/21 01/21/21 01/21/21 22:00 06:11 06:13 ESR Sodium Potassium Chloride Carbon Dioxide Anion Gap BUN Creatinine Est Cr Clr Drug Dosing Est GFR ( Amer) Est GFR (Non-Af Amer) BUN/Creatinine Ratio Glucose POC Glucose 232 H 54 L* 64 L* Calcium Ferritin Total Bilirubin AST ALT Alkaline Phosphatase C-Reactive Protein Total Protein Albumin Globulin Albumin/Globulin Ratio Urine Color Urine Appearance Urine pH Ur Specific [place] Urine Protein Urine Glucose (UA) Urine Ketones Urine Blood Urine Nitrite Urine Bilirubin Urine Urobilinogen Ur Leukocyte Esterase Urine WBC (Auto) Urine RBC (Auto) U Hyaline Cast (Auto) U Epithel Cells (Auto) Urine Bacteria (Auto) 01/21/21 01/21/21 01/21/21 06:37 07:51 07:53 ESR 45 H Sodium Potassium Chloride Carbon Dioxide Anion Gap BUN Creatinine Est Cr Clr Drug Dosing Est GFR ( Amer) Est GFR (Non-Af Amer) BUN/Creatinine Ratio Glucose POC Glucose 71 159 H Calcium Ferritin Total Bilirubin AST ALT Alkaline Phosphatase C-Reactive Protein Total Protein Albumin Globulin Albumin/Globulin Ratio Urine Color Urine Appearance Urine pH Ur Specific [place] Urine Protein Urine Glucose (UA) Urine Ketones Urine Blood Urine Nitrite Urine Bilirubin Urine Urobilinogen Ur Leukocyte Esterase Urine WBC (Auto) Urine RBC (Auto) U Hyaline Cast (Auto) U Epithel Cells (Auto) Urine Bacteria (Auto) 01/21/21 01/21/21 01/21/21 07:53 11:21 14:46 ESR Sodium 146 H Potassium 4.8 Chloride 111 H Carbon Dioxide 31 Anion Gap 4.0 BUN 46 H Creatinine 1.28 Est Cr Clr Drug Dosing 54.7 Est GFR ( Amer) 63.0 Est GFR (Non-Af Amer) 54.4 BUN/Creatinine Ratio 36.2 H Glucose 164 H POC Glucose 158 H 206 H Calcium 8.1 L Ferritin 1982.8 H Total Bilirubin 0.5 AST 60 H ALT 44 Alkaline Phosphatase 65 C-Reactive Protein 4.71 H Total Protein 5.5 L Albumin 1.5 L Globulin 4.0 Albumin/Globulin Ratio 0.4 L Urine Color Urine Appearance Urine pH Ur Specific [place] Urine Protein Urine Glucose (UA) Urine Ketones Urine Blood Urine Nitrite Urine Bilirubin Urine Urobilinogen Ur Leukocyte Esterase Urine WBC (Auto) Urine RBC (Auto) U Hyaline Cast (Auto) U Epithel Cells (Auto) Urine Bacteria (Auto)
--- NOTE | 2021-01-21 17:19 | Hospitalist Progress Note ---
Date of Service January 21, 2021 Assessment & Plan (1) Acute respiratory failure with hypoxia: Plan: 05/13 covid pneumonia (2) 2019 novel coronavirus-infected pneumonia (NCIP): Plan: Unvaccinated patient tested positive for COVID-19 on 01/13. At that time he was started on dexamethasone and Levaquin daily. He resides in a [facility] and is chronically on 2 L of oxygen. He began to desaturate prompting admission. He currently maintains on max high flow it is difficult to prone. Nurse reports he is able to suction sputum and patient is able to give a good cough and produce excess mucus frequently. Therefore, it appears that even though he is bedbound and weak he is achieving good pulmonary toilet. He was not started on remdesivir secondary to acute kidney injury on admission. Continue efforts to prone, suction, give Lasix as needed and support him through this. Continue dexamethasone for 10 days. (3) Elevated troponin: Plan: Troponins are elevated at 0.3 though flat in the trend and do not reflect acute myocardial injury per cardiology. Notably patient is asymptomatic regarding any chest pain or angina symptoms. We will continue daily EKG and avoidance of QT prolonging drugs. We will continue to treat underlying electrolyte abnormalities and optimize nutrition. We will have a low threshold for full a nticoagulation if any signs of angina. We will continue medical management of known CAD in the setting of ischemic cardiomyopathy (4) QT prolongation: Plan: Initial QTC prolongation of 594. This decreased next day to 538. Trend EKG in a.m. Was notably on Levaquin in addition to amiodarone prior to hospitalization likely causing initial QTC prolongation. Avoid QTC prolonging agents if able. (5) Myasthenia gravis: Plan: Generalized weakness. This is my first day with him but he appears to be at baseline if not expectantly week from acute illness. Continue pyridostigmine bromide 3 times daily per home regimen. (6) DMII (diabetes mellitus, type 2): Plan: Overall uncontrolled with A1c of 8.7, however, inpatient glucose is within goal range. Continue current insulin therapy. Appreciate inpatient glycemic pharmacy management. (7) Gout: Plan: Continue allopurinol per home regimen daily. (8) Dysphagia causing pulmonary aspiration with swallowing: Plan: s/p PEG placement. Continues on tube feeds. I increased amount of free water in setting of hypernatremia on labwork, likely related to increased insensible losses in acute infection (no fever, but increased respiratory rate and effort overall, etc.) (9) Dementia: Plan: Patient has a high risk of hospital-acquired delirium. Nonspecific dementia at baseline per fci notes. Continue supportive care, reorientation as needed. (10) CKD (chronic kidney disease), stage III: Plan: Initially with acute kidney injury and creatinine of 1.96. Creatinine has now resolved to baseline of 1.3. Continue to avoid nephrotoxic substances and renally dose meds as needed. (11) Ischemic cardiomyopathy: Plan: Known history of ischemic cardiomyopathy status post ICD placement. He is euvolemic to dry on exam. Continue medical management of cardiac disease with Lipitor, Coreg, Plavix, hydralazine/Isordil. Also has a history of ventricular tachycardia and continues on amiodarone 200 mg daily. A paced on telemetry. Cardiology following patient. (12) DVT prophylaxis: Plan: Patient is on heparin for DVT prophylaxis. And his renal function has improved we will switch him over to Lovenox to reduce shock burden. Full code Disposition-continue PCU monitoring [facility] Ruiz [facility] and [facility]tic[facility]ated Discharge Date Admission Date: January 17, 2021 Subjective 75-year-old man with a history of myasthenia gravis and severe dysphagia on PEG tube feedings presented with acute respiratory failure secondary to Covid 19 pneumonia. It is somewhat difficult to understand him today as his mucous membranes are dry and he has some speech difficulties at baseline. He appears upset and frustrated with each answer given therefore review of systems is limited. He denies any chest pain and is on max high flow oxygen at this time. He has a known ischemic cardiomyopathy and appears euvolemic to dry. He is generally weak and is laying on his right side eyes mostly closed appearing to be in mild distress with multiple demands of anyone in the room. Review of Systems Review of Systems: Limited review of systems but overall reporting no chest pain or shortness of breath. It is difficult to ascertain anything beyond this secondary to willingness to participate in questioning and speech difficulties. Physical Exam Physical Exam: CONSTITUTIONAL: WNWD, vitals as above, generally ill- appearing, lying on right side and unwilling to move around for exam, facial grimacing, eyes closed, mild distress. EYES: normal conjunctivae, no scleral icterus ENT: external ear and nose normal, mucous membranes are dry. NECK: trachea midline RESPIRATORY: coarse rhonchi throughout, no rales or wheezes, normal respiratory effort CARDIOVASCULAR: regular rate and rhythm, S1 and 2 heard without murmurs, gallops or rubs, no JVD, no peripheral edema GASTROINTESTINAL: soft, nontender, ND, PEG tube in place, no guarding. MUSCULOSKELETAL: generalized weakness, bedbound status, head is normocephalic and atraumatic SKIN: warm and dry NEUROLOGIC: CN 2-12 grossly intact, normal cognition, abnormal articulation, however, mucous membranes are also very dry limiting capability, no tremor. PSYCHIATRIC: alert, not very cooperative with exam causing limitations in understanding of his current state Results & Data Results & Data ([facility]) Vital Signs (Past 12 Hours) Vital Signs Temp Pulse Pulse Pulse Resp BP Pulse Ox 01/21/21 16:05 36.3 C L 66 25 H 151/63 H 93 01/21/21 15:00 66 01/21/21 14:51 64 21 90 01/21/21 11:35 36.7 C 68 22 140/63 91 01/21/21 10:06 66 22 93 01/21/21 08:10 63 01/21/21 07:54 36.6 C 63 22 144/95 H 93 01/21/21 06:59 66 18 90 Laboratory Results [facility] 01/21/21 07:53 Sodium 146 H Potassium 4.8 Chloride 111 H Carbon Dioxide 31 BUN 46 H Creatinine 1.28 Glucose 164 H Calcium 8.1 L Liver Function 01/21/21 Range/Units 07:53 Total Bilirubin 0.5 (0.2-1) mg/dl AST 60 H (15-37) U/L ALT 44 (12-78) U/L Alkaline Phosphatase 65 (45-117) U/L Albumin 1.5 L (3.4-5.0) gm/dl Urine 01/20/21 Range/Units 21:05 Urine Color Yellow Urine Appearance Clear (Clear) Urine pH 5.0 (4.5-7.5) Ur Specific [place] 1.012 (1.000-1.030) Urine Protein Negative (Negative) Urine Glucose (UA) Negative (Negative) Medications Administered Current Inpatient Medications Acetaminophen (Acetaminophen Susp 325 Mg/10.15 Ml Udc) 650 mg PEG Q4H PRN PRN Reason: Fever Or Pain Stop: 02/16/21 20:44 Albuterol (Albut/Ipratrop 3mg/0.5mg Neb 3 Ml Vial) 3 ml INH Q4H PRN PRN Reason: weezing/dyspnea Stop: 02/16/21 20:18 Allopurinol (Allopurinol 100 Mg Tab) 100 mg PEG DAILY ANDRES Stop: 02/17/21 08:59 Last Admin: 01/21/21 09:42 Dose: 100 mg Documented by: Amiodarone HCl (Amiodarone 200 Mg Tab) 200 mg PO DAILY ANDRES Stop: 02/17/21 08:59 Last Admin: 01/21/21 09:43 Dose: 200 mg Documented by: Atorvastatin Calcium (Atorvastatin 40 Mg Tab) 40 mg PEG QPM ANDRES Stop: 02/16/21 20:59 Last Admin: 01/20/21 19:23 Dose: 40 mg Documented by: Carvedilol (Carvedilol 6.25 Mg Tab) 6.25 mg PEG BID ANDRES Stop: 02/16/21 20:59 Last Admin: 01/21/21 09:42 Dose: 6.25 mg Documented by: Clopidogrel Bisulfate (Clopidogrel Bisulfate 75 Mg Tab) 75 mg PEG DAILY ANDRES Stop: 02/17/21 08:59 Last Admin: 01/21/21 09:43 Dose: 75 mg Documented by: Dextrose (Dextrose 50% 50 Ml Syringe) 25 - 50 ml IV UD PRN; Protocol PRN Reason: Hypoglycemia Protocol Stop: 02/16/21 20:18 Enteral Nutritional Formula (Peptamen 1.5 Mario Alberto 1,000 Ml Bag) 250 ml GT 0700,1100,1500,1900,2300 [facility]; Protocol Stop: 02/18/21 10:59 Last Admin: 01/21/21 14:46 Dose: 250 ml Documented by: Famotidine (Famotidine 20 Mg Tab) 20 mg PO DAILY [facility] Stop: 02/17/21 08:59 Last Admin: 01/21/21 09:42 Dose: 20 mg Documented by: Furosemide (Furosemide 20 Mg Tab) 20 mg PO QAM [facility] Stop: 02/17/21 08:59 Last Admin: 01/21/21 09:42 Dose: 20 mg Documented by: Glucagon (Glucagon For Inj 1 Mg Vial) 1 mg SQ UD PRN; Protocol PRN Reason: Hypoglycemia Protocol Stop: 02/16/21 20:18 Glucose (Glucose 10 Tabs/Tube) 4 - 8 tabs PO UD PRN; Protocol PRN Reason: Hypoglycemia Protocol Stop: 02/16/21 20:18 Glucose (Glucose 40% Gel 15 Gm Tube) 15 - 30 gm PO UD PRN; Protocol PRN Reason: Hypoglycemia Protocol Stop: 02/16/21 20:18 Guaifenesin (Guaifenesin Sugar Free 100 Mg/5 Ml Udc) 100 mg PO Q4H PRN PRN Reason: Cough Stop: 02/16/21 20:18 Heparin Sodium (Porcine) (Heparin Sod 5,000 Unit/0.5 Ml Vial) 5,000 units SQ Q8 ANDRES Stop: 02/16/21 21:59 Last Admin: 01/21/21 13:02 Dose: 5,000 units Documented by: Hydralazine HCl (Hydralazine 10 Mg Tab) 5 mg PEG BID [facility] Stop: 02/16/21 20:59 Last Admin: 01/21/21 09:42 Dose: 5 mg Documented by: Sodium Chloride (Nss 1000ml) 1,000 mls @ 100 mls/hr IV .Q10H [facility] Last Admin: 01/18/21 09:18 Dose: Not Given Documented by: Dexamethasone 6 mg/ Syringe 1.5 mls @ 1 mls/min IV Q24H [facility] Stop: 02/19/21 08:59 Last Admin: 01/21/21 09:41 Dose: 1 mls/min Documented by: Insulin Aspart (Insulin Aspart 100 Units/Ml 3 Ml Pen) 0 units SC 0700,1100,1500,1900,2300 [facility] Stop: 02/18/21 14:59 Last Admin: 01/21/21 15:04 Dose: 17 units Documented by: Insulin Glargine (Insulin Glargine Solostar 100 Units/Ml 3 Ml Pen) 14 units SQ HS [facility] Stop: 02/20/21 20:59 Insulin Human NPH (Insulin Human Nph) 40 units SC DAILY@0900 [facility] Stop: 02/20/21 08:59 Last Admin: 01/21/21 09:45 Dose: 40 units Documented by: Isosorbide Dinitrate (Isosorbide Dinitrate 10 Mg Tab) 10 mg PO TID@0700,1200,1700 [facility] Stop: 02/17/21 06:59 Last Admin: 01/21/21 16:08 Dose: 10 mg Documented by: Melatonin (Melatonin 3 Mg Tab) 6 mg PO HS ANDRES Stop: 02/16/21 20:59 Last Admin: 01/20/21 19:29 Dose: 6 mg Documented by: Miscellaneous (Carbohydrates For Hypoglycemia ) 15 - 30 gm PO UD PRN PRN Reason: Hypoglycemia Protocol Stop: 02/16/21 20:18 Last Admin: 01/21/21 06:21 Dose: 15 gm Documented by: Miscellaneous Information (Pharmacy Glycemic Mgmt Consult) 1 ea N/A UD PRN PRN Reason: Consult Stop: 02/18/21 14:44 Ondansetron HCl (Ondansetron 4 Mg Od Tab) 4 mg PO Q6H PRN PRN Reason: Nausea Stop: 02/16/21 20:57 Potassium Chloride (Potassium Chloride 20 Meq/15 Ml Udc) 20 meq PEG DAILY ANDRES Stop: 02/17/21 08:59 Last Admin: 01/21/21 09:43 Dose: 20 meq Documented by: Pyridostigmine [place] (Pyridostigmine [place] 60 Mg Tab) 60 mg PO TID ANDRES Stop: 02/16/21 20:59 Last Admin: 01/21/21 13:02 Dose: 60 mg Documented by: Sterile Water (Tube Feeding Water Flush) 150 ml GT Q4H [facility] Stop: 02/18/21 10:29 Last Admin: 01/21/21 14:47 Dose: 150 ml Documented by: Vitamin D (Cholecalciferol 1,000 Units 25 Mcg Tab) 1,000 units PEG DAILY ANDRES Stop: 02/17/21 08:59 Last Admin: 01/21/21 09:43 Dose: 1,000 units Documented by:
[2021-01-21] MEDS: MELATONIN 3 MG TAB PO SCH (20:21)
[2021-01-21] MEDS: ATORVASTATIN 40 MG TAB PEG SCH (20:22)
[2021-01-21] MEDS: INSULIN GLARGINE SOLOSTAR 100 UNITS/ML 3 ML PEN SQ SCH (20:23)
[2021-01-22] MEDS: TUBE FEEDING WATER FLUSH GT SCH ×6 (02:23→22:35)
[2021-01-22] MEDS: HEPARIN SOD 5,000 UNIT/0.5 ML VIAL SQ SCH ×3 (06:11→21:15)
[2021-01-22] MEDS: PEPTAMEN 1.5 CAL 1,000 ML BAG GT SCH ×5 (07:21→23:14)
[2021-01-22] MEDS: ISOSORBIDE DINITRATE 10 MG TAB PO SCH ×3 (07:22→18:34)
[2021-01-22] MEDS: INSULIN ASPART 100 UNITS/ML 3 ML PEN SC SCH ×5 (07:30→23:17)
[2021-01-22] MEDS: FAMOTIDINE 20 MG TAB PO SCH (08:51)
[2021-01-22] MEDS: AMIODARONE 200 MG TAB PO SCH (08:51)
[2021-01-22] MEDS: hydrALAZINE 10 MG TAB PEG SCH ×2 (08:51→21:13)
[2021-01-22] MEDS: CLOPIDOGREL BISULFATE 75 MG TAB PEG SCH (08:51)
[2021-01-22] MEDS: carvediloL 6.25 MG TAB PEG SCH ×2 (08:51→21:09)
[2021-01-22] MEDS: CHOLECALCIFEROL 1,000 UNITS 25 MCG TAB PEG SCH (08:52)
[2021-01-22] MEDS: allopurinoL 100 MG TAB PEG SCH (08:52)
[2021-01-22] MEDS: POTASSIUM CHLORIDE 20 MEQ/15 ML UDC PEG SCH (08:52)
[2021-01-22] MEDS: INSULIN HUMAN NPH SC SCH (08:54)
[2021-01-22] MEDS: PYRIDOSTIGMINE BROMIDE 60 MG TAB PO SCH ×3 (09:10→21:14)
[2021-01-22] MEDS: dexAMETHasone 6 MG in SYRINGE 0 ML IV SCH (09:10)
[2021-01-22 10:59] LABS: Basophils # (auto) 0.02 K/uL (0-0.2); Basophils % (auto) 0.1 %; Hematocrit (blood only) 40.9 % (42-52); Immature Granulocytes # (auto) 0.13 K/uL (0.00-0.02); Immature Granulocytes % (auto) 0.7 %; Lymphocytes # (auto) 3.24 K/uL (1.2-3.4); Lymphocytes % (auto) 17.9 %; Mean Corpuscular Hemoglobin 33.7 pg (25-34); Mean Corpuscular Hgb Conc 34.2 g/dL (32-36); Mean Corpuscular Volume 98.6 fL (80-100); Mean Platelet Volume 11.7 fL (7.4-10.4); Monocytes # (auto) 0.54 K/uL (0.11-0.59); Neutrophils # (auto) 14.22 K/uL (1.4-6.5); Neutrophils % (auto) 78.3 %; Platelet Count 230 K/uL (130-400); RDW Coefficient of Variation 14.2 % (11.5-14.5); RDW Standard Deviation 51.1 fL (36.4-46.3); Red Blood Count 4.15 M/uL (4.7-6.1); White Blood Count 18.15 K/uL (4.8-10.8)
[2021-01-22 11:33] LABS: BUN Creatinine Ratio 39.2 (10-20); C Reactive Protein 6.2 mg/dl (0-0.29); Calcium 8.5 mg/dl (8.5-10.1); Est GFR (African American) 55.1 ml/min; Est GFR (Non-African American) 47.6 ml/min; Magnesium 2.7 mg/dl (1.8-2.4); Phosphorus 2.1 mg/dl (2.5-4.9); Potassium 5.6 mmol/L (3.5-5.1)
[2021-01-22 13:14] LABS: Echinocytes 1+
--- NOTE | 2021-01-22 14:33 | Cardiology Progress Note ---
Date of Service January 22, 2021 Assessment & Plan (1) Abnormal electrocardiogram [ECG] [EKG]: (2) 2019 novel coronavirus-infected pneumonia (NCIP): (3) Ischemic cardiomyopathy: (4) Presence of combination internal cardiac defibrillator (ICD) and pacemaker: Plan: Patient is a complex 75-year-old male with history as outlined above who presents with acute hypoxia in association with Covid 19 infection/pneumonia. Chronic medical issues as outlined in HPI. EKG on presentation demonstrates atrial paced rhythm with marked T wave abnormalities consistent with incomplete left bundle branch block, marked QT prolongation. Suspect findings initially are in part due to combination of amiodarone and Levaquin provided prior to hospitalization Troponins are elevated though flat and do not reflect acute myocardial injury, patient asymptomatic in regards to chest pain or angina EKG 01/19/2021 atrial paced rhythm once again but QT interval shorter. There is T wave inversion and precordial leads Oxygen demands have increased overall pulmonary status appears to be progressively limiting Weight down 1 kg after diuresis. Rhythm on telemetry atrial paced Recommendations: EKG reviewed. QT prolongation has resolved. No signs of acute ischemia. Laboratory studies demonstrate elevated potassium furosemide currently on hold, will hold potassium supplement Admission and Anticipated Discharge Date Admission Date: January 17, 2021 Subjective Chart reviewed, telemetry reviewed, care discussed with Covid unit staff. Patient not personally examined Telemetry without arrhythmias with rhythm atrial paced. Results & Data ([facility]) Vital Signs (Past 12 Hours) Vital Signs Temp Pulse Pulse Resp BP Pulse Ox 01/22/21 14:00 36.2 C L 63 22 137/72 93 01/22/21 11:56 63 20 93 01/22/21 08:26 72 26 H 89 L 01/22/21 07:36 63 01/22/21 07:13 36.5 C 63 20 160/81 H 99 01/22/21 04:00 36.9 C 72 137/76 91 Laboratory Results Laboratory Results - last 24 hr 01/21/21 01/21/21 01/21/21 14:46 18:05 20:19 WBC RBC Hgb Hct MCV MCH MCHC RDW Std Deviation RDW Coeff of Rodo Plt Count MPV Immature Gran % (Auto) Neut % (Auto) Lymph % (Auto) [place] % (Auto) Eos % (Auto) Baso % (Auto) Neut # (Auto) Lymph # (Auto) [place] # (Auto) Eos # (Auto) Baso # (Auto) Immature Gran # (Auto) Echinocytes Sodium Potassium Chloride Carbon Dioxide Anion Gap BUN Creatinine Est Cr Clr Drug Dosing Est GFR ( Amer) Est GFR (Non-Af Amer) BUN/Creatinine Ratio Glucose POC Glucose 206 H 147 H 156 H Calcium Phosphorus Magnesium C-Reactive Protein 01/21/21 01/22/21 01/22/21 23:57 07:10 10:38 WBC 18.15 H RBC 4.15 L Hgb 14.0 Hct 40.9 L MCV 98.6 MCH 33.7 MCHC 34.2 RDW Std Deviation 51.1 H RDW Coeff of Rodo 14.2 Plt Count 230 MPV 11.7 H Immature Gran % (Auto) 0.7 Neut % (Auto) 78.3 Lymph % (Auto) 17.9 [place] % (Auto) 3.0 Eos % (Auto) 0.0 Baso % (Auto) 0.1 Neut # (Auto) 14.22 H Lymph # (Auto) 3.24 [place] # (Auto) 0.54 Eos # (Auto) 0.00 Baso # (Auto) 0.02 Immature Gran # (Auto) 0.13 H Echinocytes 1+ Sodium Potassium Chloride Carbon Dioxide Anion Gap BUN Creatinine Est Cr Clr Drug Dosing Est GFR ( Amer) Est GFR (Non-Af Amer) BUN/Creatinine Ratio Glucose POC Glucose 85 92 Calcium Phosphorus Magnesium C-Reactive Protein 01/22/21 01/22/21 10:38 11:36 WBC RBC Hgb Hct MCV MCH MCHC RDW Std Deviation RDW Coeff of Rodo Plt Count MPV Immature Gran % (Auto) Neut % (Auto) Lymph % (Auto) [place] % (Auto) Eos % (Auto) Baso % (Auto) Neut # (Auto) Lymph # (Auto) [place] # (Auto) Eos # (Auto) Baso # (Auto) Immature Gran # (Auto) Echinocytes Sodium 144 Potassium 5.6 H D Chloride 112 H Carbon Dioxide 26 Anion Gap 6.0 BUN 56 H Creatinine 1.43 H Est Cr Clr Drug Dosing 49.0 Est GFR ( Amer) 55.1 Est GFR (Non-Af Amer) 47.6 BUN/Creatinine Ratio 39.2 H Glucose 151 H POC Glucose 135 H Calcium 8.5 Phosphorus 2.1 L Magnesium 2.7 H C-Reactive Protein 6.20 H
[2021-01-22] MEDS ORDERED: dexAMETHasone 4 MG in SYRINGE 0 ML IV ONE (16:30)
--- NOTE | 2021-01-22 17:03 | Electrocardiogram Report ---
Test Reason : Blood Pressure : / mmHG Vent. Rate : 063 BPM Atrial Rate : 063 BPM P-R Int : 198 ms QRS Dur : 104 ms QT Int : 478 ms P-R-T Axes : 032 008 228 degrees QTc Int : 489 ms Atrial-paced rhythm Cannot rule out Septal infarct (cited on or before 19-JAN-2021) Abnormal ECG When compared with ECG of 19-JAN-2021 11:14, T wave inversion less evident in Anterior leads QT has shortened Confirmed by Liborio White ([id number] on 01/22/2021 5:03:03 PM Referred By: Henrry Vital Confirmed By:Liborio White
--- NOTE | 2021-01-22 18:45 | Hospitalist Progress Note ---
Date of Service January 22, 2021 Assessment & Plan (1) Acute respiratory failure with hypoxia: Plan: 05/13 covid pneumonia (2) 2019 novel coronavirus-infected pneumonia (NCIP): Plan: Unvaccinated patient tested positive for COVID-19 on 01/13. At that time he was started on dexamethasone and Levaquin daily. He resides in a [place] [facility] and is chronically on 2 L of oxygen. He began to desaturate prompting admission. He currently maintains on max high flow oxygen supplementation for the last couple of days;he is difficult to prone. Patient is expectorating mucous per nursing staff. He was not started on remdesivir secondary to acute kidney injury on admission. Continue efforts to prone, suction, give Lasix as needed and support him through this. Continue dexamethasone for 10 days. (3) Myasthenia gravis: Plan: Generalized weakness. Continues on pyridostigmine per home regimen. Unconfirmed diagnosis of myasthenia. Difficult to tell if/when he is in crisis as cannot monitor NIF with baseline facial weakness. Discussed with neuro distribution field engineer and decided that increasing decadron to 10mg daily was the low hanging frui t. Reached out to [facility] provider who sees him, states he is a full code, and reports that he has no POA as he likes to make his own care decisions. Palliative care was consulted for a goals of care conversation. He is difficult to converse with, and will need to connect with appropriate family. Low threshold for transfer to ICU for intubation if he declines any further. (4) Elevated troponin: Plan: Troponins are elevated at 0.3 though flat in the trend and do not reflect acute myocardial injury per cardiology. Notably patient is asymptomatic regarding any chest pain or angina symptoms. We will continue daily EKG and avoidance of QT prolonging drugs. We will continue to treat underlying electrolyte abnormalities and optimize nutrition. We will have a low threshold for full anticoagulation if any signs of angina, but this is less likely at this point. We will continue medical management of known CAD in the setting of ischemic cardiomyopathy (5) QT prolongation: Plan: Initial QTC prolongation of 594. Was notably on Levaquin in addition to am iodarone prior to hospitalization likely causing initial QTC prolongation. Avoid QTC prolonging agents if able. QTc now within normal limits. (6) DMII (diabetes mellitus, type 2): Plan: Overall uncontrolled with A1c of 8.7, however, inpatient glucose is within goal range. Continue current insulin therapy. Appreciate inpatient glycemic pharmacy management. (7) Gout: Plan: Continue allopurinol per home regimen daily. (8) Dysphagia causing pulmonary aspiration with swallowing: Plan: s/p PEG placement. Continues on tube feeds. Cont increased amount of free water in setting of hypernatremia on labwork, likely related to increased insensible losses in acute infection (no fever, but increased respiratory rate and effort overall, etc.) (9) Dementia: Plan: Patient has a high risk of hospital-acquired delirium. Nonspecific dementia at baseline per [place] [facility] notes. Continue supportive care, reorientation as needed. Required restraints overnight as he pulled his oxygen off. Placed on one to one with removal of restraints. (10) CKD (chronic kidney disease), stage III: Plan: Initially with acute kidney injury and creatinine of 1.96. Creatinine has now resolved to baseline. Continue to avoid nephrotoxic substances and renally dose meds as needed. (11) Ischemic cardiomyopathy: Plan: Known history of ischemic cardiomyopathy status post ICD placement. He is euvolemic to dry on exam. Continue medical management of cardiac disease with Lipitor, Coreg, Plavix, hydralazine/Isordil. Also has a history of ventricular tachycardia and continues on amiodarone 200 mg daily. A paced on telemetry. Cardiology following patient. (12) DVT prophylaxis: Plan: Lovenox Full Code Disposition-continue PCU monitoring Chelita Ruiz DO [facility] Hospitalist Admission and Anticipated Discharge Date Admission Date: January 17, 2021 Subjective 75-year-old man with a history of myasthenia gravis and severe dysphagia on PEG tube feedings presented with acute respiratory failure secondary to Covid 19 pneumonia. Review of Systems Review of Systems: ROS is limited as patient has dementia and speech difficulties at baseline. Denies any pain at this time, however, ROS is otherwise limited. Physical Exam Physical Exam: CONSTITUTIONAL: WNWD, vitals as above, generally ill- appearing, lying on right side and unwilling/unable to move around for exam, facial grimacing, eyes closed. EYES: normal conjunctivae, no scleral icterus ENT: external ear and nose normal, mucous membranes are moist-improved from yesterday. NECK: trachea midline RESPIRATORY: coarse rhonchi throughout, no rales or wheezes, normal respiratory effort CARDIOVASCULAR: regular rate and rhythm, S1 and 2 heard without murmurs, gallops or rubs, no JVD, no peripheral edema GASTROINTESTINAL: soft, nontender, ND, PEG tube in place, no guarding. MUSCULOSKELETAL: generalized weakness noted symmetrically with some rigidity of his legs bilaterally, bedbound status, head is normocephalic and atraumatic SKIN: warm and dry NEUROLOGIC: CN 2-12 grossly intact, normal cognition, abnormal articulation, however, mucous membranes are also very dry limiting capability, no tremor. PSYCHIATRIC: alert, not very cooperative with exam Results & Data Results & Data ([facility]) Vital Signs (Past 12 Hours) Vital Signs Temp Pulse Pulse Resp BP Pulse Ox 01/22/21 18:19 64 24 92 01/22/21 16:50 63 01/22/21 16:33 36.6 C 65 22 149/69 H 89 L 01/22/21 15:19 67 24 90 01/22/21 14:00 36.2 C L 63 22 137/72 93 01/22/21 11:56 63 20 93 01/22/21 08:26 72 26 H 89 L 01/22/21 07:36 63 01/22/21 07:13 36.5 C 63 20 160/81 H 99 Laboratory Results Short CBC 01/22/21 Range/Units 10:38 WBC 18.15 H (4.8-10.8) K/uL Hgb 14.0 (14.0-18.0) g/dL Hct 40.9 L (42-52) % Plt Count 230 (130-400) K/uL BMP 01/22/21 10:38 Sodium 144 Potassium 5.6 H D Chloride 112 H Carbon Dioxide 26 BUN 56 H Creatinine 1.43 H Glucose 151 H Calcium 8.5 Medications Administered Current Inpatient Medications Acetaminophen (Acetaminophen Susp 325 Mg/10.15 Ml Udc) 650 mg PEG Q4H PRN PRN Reason: Fever Or Pain Stop: 02/16/21 20:44 Albuterol (Albut/Ipratrop 3mg/0.5mg Neb 3 Ml Vial) 3 ml INH Q4H PRN PRN Reason: weezing/dyspnea Stop: 02/16/21 20:18 Allopurinol (Allopurinol 100 Mg Tab) 100 mg PEG DAILY ANDRES Stop: 02/17/21 08:59 Last Admin: 01/22/21 08:52 Dose: 100 mg Documented by: Amiodarone HCl (Amiodarone 200 Mg Tab) 200 mg PO DAILY ANDRES Stop: 02/17/21 08:59 Last Admin: 01/22/21 08:51 Dose: 200 mg Documented by: Atorvastatin Calcium (Atorvastatin 40 Mg Tab) 40 mg PEG QPM ANDRES Stop: 02/16/21 20:59 Last Admin: 01/21/21 20:22 Dose: 40 mg Documented by: Carvedilol (Carvedilol 6.25 Mg Tab) 6.25 mg PEG BID ANDRES Stop: 02/16/21 20:59 Last Admin: 01/22/21 08:51 Dose: 6.25 mg Documented by: Clopidogrel Bisulfate (Clopidogrel Bisulfate 75 Mg Tab) 75 mg PEG DAILY ANDRES Stop: 02/17/21 08:59 Last Admin: 01/22/21 08:51 Dose: 75 mg Documented by: Dextrose (Dextrose 50% 50 Ml Syringe) 25 - 50 ml IV UD PRN; Protocol PRN Reason: Hypoglycemia Protocol Stop: 02/16/21 20:18 Enteral Nutritional Formula (Peptamen 1.5 Mario Alberto 1,000 Ml Bag) 250 ml GT 0700,1100,1500,1900,2300 [facility]; Protocol Stop: 02/18/21 10:59 Last Admin: 01/22/21 15:41 Dose: 250 ml Documented by: Famotidine (Famotidine 20 Mg Tab) 20 mg PO DAILY [facility] Stop: 02/17/21 08:59 Last Admin: 01/22/21 08:51 Dose: 20 mg Documented by: Furosemide (Furosemide 20 Mg Tab) 20 mg PO QAM [facility] Stop: 02/17/21 08:59 Last Admin: 01/21/21 09:42 Dose: 20 mg Documented by: Glucagon (Glucagon For Inj 1 Mg Vial) 1 mg SQ UD PRN; Protocol PRN Reason: Hypoglycemia Protocol Stop: 02/16/21 20:18 Glucose (Glucose 10 Tabs/Tube) 4 - 8 tabs PO UD PRN; Protocol PRN Reason: Hypoglycemia Protocol Stop: 02/16/21 20:18 Glucose (Glucose 40% Gel 15 Gm Tube) 15 - 30 gm PO UD PRN; Protocol PRN Reason: Hypoglycemia Protocol Stop: 02/16/21 20:18 Guaifenesin (Guaifenesin Sugar Free 100 Mg/5 Ml Udc) 100 mg PO Q4H PRN PRN Reason: Cough Stop: 02/16/21 20:18 Heparin Sodium (Porcine) (Heparin Sod 5,000 Unit/0.5 Ml Vial) 5,000 units SQ Q8 ANDRES Stop: 02/16/21 21:59 Last Admin: 01/22/21 13:51 Dose: 5,000 units Documented by: Hydralazine HCl (Hydralazine 10 Mg Tab) 5 mg PEG BID ANDRES Stop: 02/16/21 20:59 Last Admin: 01/22/21 08:51 Dose: 5 mg Documented by: Dexamethasone 10 mg/ Syringe 2.5 mls @ 1 mls/min IV DAILY ANDRES Stop: 02/22/21 08:59 Insulin Aspart (Insulin Aspart 100 Units/Ml 3 Ml Pen) 0 units SC 0700,1100,1500,1900,2300 ANDRES Stop: 02/18/21 14:59 Last Admin: 01/22/21 15:42 Dose: 13 units Documented by: Insulin Glargine (Insulin Glargine Solostar 100 Units/Ml 3 Ml Pen) 14 units SQ HS ANDRES Stop: 02/20/21 20:59 Last Admin: 01/21/21 20:23 Dose: 14 units Documented by: Insulin Human NPH (Insulin Human Nph) 40 units SC DAILY@0900 ANDRES Stop: 02/20/21 08:59 Last Admin: 01/22/21 08:54 Dose: 40 units Documented by: Isosorbide Dinitrate (Isosorbide Dinitrate 10 Mg Tab) 10 mg PO TID@0700,1200,1700 AND[facility] Stop: 02/17/21 06:59 Last Admin: 01/22/21 18:34 Dose: 10 mg Documented by: Melatonin (Melatonin 3 Mg Tab) 6 mg PO HS ANDRES Stop: 02/16/21 20:59 Last Admin: 01/21/21 20:21 Dose: 6 mg Documented by: Miscellaneous (Carbohydrates For Hypoglycemia ) 15 - 30 gm PO UD PRN PRN Reason: Hypoglycemia Protocol Stop: 02/16/21 20:18 Last Admin: 01/21/21 06:21 Dose: 15 gm Documented by: Miscellaneous Information (Pharmacy Glycemic Mgmt Consult) 1 ea N/A UD PRN PRN Reason: Consult Stop: 02/18/21 14:44 Ondansetron HCl (Ondansetron 4 Mg Od Tab) 4 mg PO Q6H PRN PRN Reason: Nausea Stop: 02/16/21 20:57 Potassium Chloride (Potassium Chloride 20 Meq/15 Ml Udc) 20 meq PEG DAILY ANDRES Stop: 02/17/21 08:59 Last Admin: 01/22/21 08:52 Dose: 20 meq Documented by: Pyridostigmine Chapin (Pyridostigmine Chapin 60 Mg Tab) 60 mg PO TID ANDRES Stop: 02/16/21 20:59 Last Admin: 01/22/21 13:51 Dose: 60 mg Documented by: Sterile Water (Tube Feeding Water Flush) 200 ml GT Q4H ANDRES Stop: 02/20/21 18:29 Last Admin: 01/22/21 18:34 Dose: 200 ml Documented by: Vitamin D (Cholecalciferol 1,000 Units 25 Mcg Tab) 1,000 units PEG DAILY ANDRES Stop: 02/17/21 08:59 Last Admin: 01/22/21 08:52 Dose: 1,000 units Documented by:
[2021-01-22] MEDS: INSULIN GLARGINE SOLOSTAR 100 UNITS/ML 3 ML PEN SQ SCH (20:21)
[2021-01-22] MEDS: ATORVASTATIN 40 MG TAB PEG SCH (21:09)
[2021-01-22] MEDS: MELATONIN 3 MG TAB PO SCH (21:13)
[2021-01-23] MEDS: TUBE FEEDING WATER FLUSH GT SCH ×6 (02:47→22:14)
[2021-01-23] MEDS: HEPARIN SOD 5,000 UNIT/0.5 ML VIAL SQ SCH ×3 (06:02→20:29)
[2021-01-23] MEDS: PEPTAMEN 1.5 CAL 1,000 ML BAG GT SCH ×5 (06:35→22:37)
[2021-01-23] MEDS: INSULIN ASPART 100 UNITS/ML 3 ML PEN SC SCH ×5 (08:00→22:44)
[2021-01-23] MEDS: carvediloL 6.25 MG TAB PEG SCH ×2 (08:07→20:27)
[2021-01-23] MEDS: AMIODARONE 200 MG TAB PO SCH (08:07)
[2021-01-23] MEDS: allopurinoL 100 MG TAB PEG SCH (08:07)
[2021-01-23] MEDS: ISOSORBIDE DINITRATE 10 MG TAB PO SCH ×3 (08:07→16:47)
[2021-01-23] MEDS: CLOPIDOGREL BISULFATE 75 MG TAB PEG SCH (08:08)
[2021-01-23] MEDS: FAMOTIDINE 20 MG TAB PO SCH (08:08)
[2021-01-23] MEDS: dexAMETHasone 10 MG in SYRINGE 0 ML IV SCH (08:08)
[2021-01-23] MEDS: CHOLECALCIFEROL 1,000 UNITS 25 MCG TAB PEG SCH (08:08)
[2021-01-23] MEDS: PYRIDOSTIGMINE BROMIDE 60 MG TAB PO SCH ×3 (08:09→20:28)
[2021-01-23] MEDS ORDERED: dexAMETHasone**PF** 10 MG/ML VIAL IV SCH (09:00)
[2021-01-23] MEDS: hydrALAZINE 10 MG TAB PEG SCH ×2 (09:26→20:26)
[2021-01-23] MEDS: INSULIN HUMAN NPH SC SCH (09:29)
[2021-01-23 10:55] LABS: Basophils # (auto) 0.01 K/uL (0-0.2); Basophils % (auto) 0.1 %; Hematocrit (blood only) 35.8 % (42-52); Immature Granulocytes % (auto) 0.5 %; Lymphocytes # (auto) 3.02 K/uL (1.2-3.4); Lymphocytes % (auto) 15.9 %; Mean Corpuscular Hemoglobin 33.1 pg (25-34); Mean Corpuscular Hgb Conc 33.5 g/dL (32-36); Mean Corpuscular Volume 98.6 fL (80-100); Mean Platelet Volume 11.6 fL (7.4-10.4); Monocytes # (auto) 0.44 K/uL (0.11-0.59); Monocytes % (auto) 2.3 %; Neutrophils # (auto) 15.46 K/uL (1.4-6.5); Neutrophils % (auto) 81.2 %; Platelet Count 196 K/uL (130-400); RDW Coefficient of Variation 14.1 % (11.5-14.5); RDW Standard Deviation 50.5 fL (36.4-46.3); Red Blood Count 3.63 M/uL (4.7-6.1); White Blood Count 19.03 K/uL (4.8-10.8)
[2021-01-23 11:16] LABS: BUN Creatinine Ratio 48.4 (10-20); Calcium 7.9 mg/dl (8.5-10.1); Creatinine Clr Calc Pharmacy 58.4 ml/min; Est GFR (African American) 68.1 ml/min; Est GFR (Non-African American) 58.8 ml/min; Potassium 5.3 mmol/L (3.5-5.1)
--- NOTE | 2021-01-23 11:38 | Cardiology Progress Note ---
Date of Service January 23, 2021 Assessment & Plan (1) Abnormal electrocardiogram [ECG] [EKG]: (2) 2019 novel coronavirus-infected pneumonia (NCIP): (3) Ischemic cardiomyopathy: (4) Presence of combination internal cardiac defibrillator (ICD) and pacemaker: Plan: Patient is a complex 75-year-old male with history as outlined above who presents with acute hypoxia in association with Covid 19 infection/pneumonia. Chronic medical issues as outlined in HPI. EKG on presentation demonstrates atrial paced rhythm with marked T wave abnormalities consistent with incomplete left bundle branch block, marked QT prolongation. Suspect findings initially are in part due to combination of amiodarone and Levaquin provided prior to hospitalization Troponins are elevated though flat and do not reflect acute myocardial injury, patient asymptomatic in regards to chest pain or angina Recommendations: EKG of 01/22/2021 reviewed. QT prolongation has resolved. No signs of acute ischemia. Telemetry without arrhythmia or defibrillator acti vation. Treat underlying pulmonary issues continue cardiac medications contact with any concerns will sign off for now Admission and Anticipated Discharge Date Admission Date: January 17, 2021 Subjective Chart reviewed telemetry reviewed patient still with significant O2 demands. No cardiac issues or complaints no arrhythmias on telemetry with rhythm atrial paced Results & Data ([facility]) Vital Signs (Past 12 Hours) Vital Signs Temp Pulse Pulse Resp BP Pulse Ox 01/23/21 11:10 36.4 C L 62 20 153/78 H 93 01/23/21 07:39 36.6 C 63 19 150/72 H 93 01/23/21 05:58 69 23 93 01/23/21 04:58 63 01/23/21 03:32 64 24 92 01/23/21 03:07 36.6 C 63 17 150/80 H 94 01/23/21 00:47 67 20 91 Laboratory Results Laboratory Results - last 24 hr 01/22/21 01/22/21 01/22/21 10:38 15:26 18:23 WBC RBC Hgb Hct MCV MCH MCHC RDW Std Deviation RDW Coeff of Rodo Plt Count MPV Immature Gran % (Auto) Neut % (Auto) Lymph % (Auto) [place] % (Auto) Eos % (Auto) Baso % (Auto) Neut # (Auto) Lymph # (Auto) [place] # (Auto) Eos # (Auto) Baso # (Auto) Immature Gran # (Auto) Echinocytes 1+ Sodium Potassium Chloride Carbon Dioxide Anion Gap BUN Creatinine Est Cr Clr Drug Dosing Est GFR ( Amer) Est GFR (Non-Af Amer) BUN/Creatinine Ratio Glucose POC Glucose 153 H 138 H Calcium 01/22/21 01/23/21 01/23/21 22:52 06:24 10:37 WBC 19.03 H RBC 3.63 L Hgb 12.0 L Hct 35.8 L MCV 98.6 MCH 33.1 MCHC 33.5 RDW Std Deviation 50.5 H RDW Coeff of Rodo 14.1 Plt Count 196 MPV 11.6 H Immature Gran % (Auto) 0.5 Neut % (Auto) 81.2 Lymph % (Auto) 15.9 [place] % (Auto) 2.3 Eos % (Auto) 0.0 Baso % (Auto) 0.1 Neut # (Auto) 15.46 H Lymph # (Auto) 3.02 [place] # (Auto) 0.44 Eos # (Auto) 0.00 Baso # (Auto) 0.01 Immature Gran # (Auto) 0.10 H Echinocytes Sodium Potassium Chloride Carbon Dioxide Anion Gap BUN Creatinine Est Cr Clr Drug Dosing Est GFR ( Amer) Est GFR (Non-Af Amer) BUN/Creatinine Ratio Glucose POC Glucose 258 H 91 Calcium 01/23/21 01/23/21 10:37 10:53 WBC RBC Hgb Hct MCV MCH MCHC RDW Std Deviation RDW Coeff of Rodo Plt Count MPV Immature Gran % (Auto) Neut % (Auto) Lymph % (Auto) [place] % (Auto) Eos % (Auto) Baso % (Auto) Neut # (Auto) Lymph # (Auto) [place] # (Auto) Eos # (Auto) Baso # (Auto) Immature Gran # (Auto) Echinocytes Sodium 142 Potassium 5.3 H Chloride 114 H Carbon Dioxide 27 Anion Gap 1.0 L BUN 58 H Creatinine 1.20 Est Cr Clr Drug Dosing 58.4 Est GFR ( Amer) 68.1 Est GFR (Non-Af Amer) 58.8 BUN/Creatinine Ratio 48.4 H Glucose 141 H POC Glucose 118 H Calcium 7.9 L
--- NOTE | 2021-01-23 13:00 | Pharmacy Report ---
Pharmacy Glycemic Short Note 2 - Date of Service January 23, 2021 - Glycemic Short BSG Results (Last 24 hours): 01/22/21 01/22/21 01/22/21 15:26 18:23 22:52 Glucose POC Glucose 153 H 138 H 258 H 01/23/21 01/23/21 01/23/21 06:24 10:37 10:53 Glucose 141 H POC Glucose 91 118 H OUTPATIENT ANTIDIABETIC REGIMEN: * Insulin Glargine 14 units Hs * A1c 8.7% 01/18/21 ASSESSMENT: 01/23/21 * Patient's BSGs yesterday were [phone] mg/dL. Patient received 121 units of insulin (54 units of basal of which 40 units were NPH and 14 units were lantus and 67 units of bolus). * Fasting today was 91 mg/dL. * Continue Lantus home dose of 14 units * Continue NPH 40 units daily due. One BSG later in day elevated most likely because 1800 and 2300 bolus feed are close together * Continue current Novolog orders. 01/21/21 * Patient's BSGs yesterday were [phone] mg/dL. Patient received 135 units of insulin (55 units of basal of which 30 units were NPH and 25 units were lantus and 80 units of bolus). * Fasting today was 54 mg/dL. * Decrease Lantus to home dose of 14 units (50% reduction). Hypoglycemic this morning since dexamethasone shifted to morning. * Increase NPH by 20% to 40 units daily due to elevated BSGs later in the day. * Continue current Novolog orders. Background * Patient with extensive medical history admitted with COVID-19. Patient receiving bolus feeding and dexamethasone 6 mg IV contributing to hyperglycemia * Patient does seem to trend down overnight with lantus administration, 122 mg/dL this morning, will continue current lantus dose * Patient trends upward the rest of the day, will tighten carb ratio this evening and correction factor slightly * Dexamethasone being administered in the evening, will move to AM and begin NPH 0.4 units/kg along with NPH. Did not want to administer NPH at night since patient trends down. PLAN FOR INPATIENT GLYCEMIC CONTROL: * Hold outpatient oral diabetes medications * Basal insulin * Lantus 14 units SQ HS + NPH 40 units SQ daily * Bolus insulin * NovoLog per scale ACHS or Q6hrs while NPO * Goal Range: Low 110 mg/dL - High 140 mg/dL * Correction Factor: 15 mg/dL/unit * Nutritional / Prandial insulin per carb ratio of 1 unit per 4 grams CHO consumed PLAN FOR DISCHARGE: * tbd
--- NOTE | 2021-01-23 18:33 | Hospitalist Progress Note ---
Date of Service January 23, 2021 Assessment & Plan (1) Acute respiratory failure with hypoxia: Plan: 05/13 covid pneumonia (2) 2019 novel coronavirus-infected pneumonia (NCIP): Plan: Unvaccinated patient tested positive for COVID-19 on 01/13. At that time he was started on dexamethasone and Levaquin daily. He resides in a [facility] and is chronically on 2 L of oxygen. He began to desaturate prompting admission. He currently maintains on max high flow oxygen supplementation for the last couple of days;he is difficult to prone. Patient is expectorating mucous per nursing staff. He was not started on remdesivir secondary to acute kidney injury on admission. Continue efforts to prone, suction, give Lasix as needed and support him through this. Continue dexamethasone-noted increased le ukocytosis, likely etiology is from increased dosage with concern for myasthenia history. Recent UA was clear of infection and not fevering. Doesn't appear to have any superimposed bacterial infection. (3) Myasthenia gravis: Plan: Generalized weakness. Continues on pyridostigmine per home regimen. Unconfirmed diagnosis of myasthenia. Difficult to tell if/when he is in crisis as cannot monitor NIF with baseline facial weakness. Discussed with neuro electronics tech and decided that increasing decadron to 10mg daily was the low hanging fruit. Reached out to [facility] provider who sees him, states he is a full code, and reports that he has no POA as he likes to make his own care decisions. Palliative care was consulted for a goals of care conversation. He is difficult to converse with, and will need to connect with appropriate family. Low threshold for transfer to ICU for intubation if he declines any further. (4) Elevated troponin: Plan: Troponins are elevated at 0.3 though flat in the trend and do not reflect acute myocardial injury per cardiology. Notably patient is asymptomatic regarding any chest pain or angina symptoms. We will continue daily EKG and avoidance of QT prolonging drugs. We will continue to treat underlying electrolyte abnormal ities and optimize nutrition. We will have a low threshold for full anticoagulation if any signs of angina, but this is less likely at this point. We will continue medical management of known CAD in the setting of ischemic cardiomyopathy (5) QT prolongation: Plan: Initial QTC prolongation of 594. Was notably on Levaquin in addition to amiodarone prior to hospitalization likely causing initial QTC prolongation. Avoid QTC prolonging agents if able. QTc now within normal limits. (6) DMII (diabetes mellitus, type 2): Plan: Overall uncontrolled with A1c of 8.7, however, inpatient glucose is within goal range. Continue current insulin therapy. Appreciate inpatient glycemic pharmacy management. (7) Gout: Plan: Continue allopurinol per home regimen daily. (8) Dysphagia causing pulmonary aspiration with swallowing: Plan: s/p PEG placement. Continues on tube feeds. Cont increased amount of free water in setting of hypernatremia on labwork, likely related to increased insensible losses in acute infection (no fever, but increased respiratory rate and effort overall, etc.) (9) Dementia: Plan: Patient has a high risk of hospital-acquired delirium. Nonspecific dementia at baseline per [facility] notes. Continue supportive care, reorientation as needed. Required restraints overnight as he pulled his oxygen off. Placed on one to one with removal of restraints. (10) CKD (chronic kidney disease), stage III: Plan: Initially with acute kidney injury and creatinine of 1.96. Creatinine has now resolved to baseline. Continue to avoid nephrotoxic substances and renally dose meds as needed. (11) Ischemic cardiomyopathy: Plan: Known history of ischemic cardiomyopathy status post ICD placement. He is euv olemic to dry on exam. Continue medical management of cardiac disease with Lipitor, Coreg, Plavix, hydralazine/Isordil. Also has a history of ventricular tachycardia and continues on amiodarone 200 mg daily. A paced on telemetry. Cardiology following patient. Lasix was held initially in setting of hypernatremia and dry mucous membranes; will consider restarting soon with known reduced EF. (12) DVT prophylaxis: Plan: Lovenox Full Code Disposition-continue PCU monitoring [facility] and Anticipated Discharge Date Admission Date: January 17, 2021 Subjective 75-year-old man with a history of myasthenia gravis and severe dysphagia on PEG tube feedings presented with acute respiratory failure secondary to Covid 19 pneumonia. Review of Systems Review of Systems: ROS is limited as patient has dementia and speech difficulties at baseline. Cannot understand anything today. Physical Exam Physical Exam: CONSTITUTIONAL: WNWD, vitals as above, generally ill- appearing, lying on right side and unwilling/unable to move around for exam, eyes closed-?ptosis. NAD EYES: normal conjunctivae, no scleral icterus ENT: external ear and nose normal, mucous membranes are moist, hi flow nasal canula in place. NECK: trachea midline RESPIRATORY: coarse rhonchi throughout, no rales or wheezes, normal respiratory effort CARDIOVASCULAR: regular rate and rhythm, S1 and 2 heard without murmurs, gallops or rubs, no JVD, no peripheral edema CHEST : ICD device+ GASTROINTESTINAL: soft, nontender, ND, PEG tube in place, no guarding. MUSCULOSKELETAL: generalized weakness noted symmetrically with some rigidity of his legs bilaterally, bedbound status, head is normocephalic and atraumatic SKIN: warm and dry NEUROLOGIC: CN 2-12 grossly intact, normal cognition, abnormal articulation, however, mucous membranes are also very dry limiting capability, no tremor. PSYCHIATRIC: alert, not very cooperative with exam Results & Data Results & Data ([facility]) Vital Signs (Past 12 Hours) Vital Signs Temp Pulse Pulse Resp BP Pulse Ox 01/23/21 17:44 62 24 95 01/23/21 14:50 36.3 C L 67 20 160/81 H 92 01/23/21 14:25 61 26 H 92 01/23/21 12:01 68 28 H 88 L 01/23/21 11:10 36.4 C L 62 20 153/78 H 93 01/23/21 07:39 36.6 C 63 19 150/72 H 93
[2021-01-23] MEDS: MELATONIN 3 MG TAB PO SCH (20:24)
[2021-01-23] MEDS: ATORVASTATIN 40 MG TAB PEG SCH (20:24)
[2021-01-23] MEDS: INSULIN GLARGINE SOLOSTAR 100 UNITS/ML 3 ML PEN SQ SCH (20:39)
[2021-01-24] MEDS: TUBE FEEDING WATER FLUSH GT SCH ×6 (02:41→22:38)
[2021-01-24] MEDS: HEPARIN SOD 5,000 UNIT/0.5 ML VIAL SQ SCH ×3 (05:29→20:14)
[2021-01-24 06:05] LABS: Hematocrit (blood only) 38.5 % (42-52); Hemoglobin 12.8 g/dL (14.0-18.0); Mean Corpuscular Hemoglobin 32.8 pg (25-34); Mean Corpuscular Hgb Conc 33.2 g/dL (32-36); Mean Corpuscular Volume 98.7 fL (80-100); Mean Platelet Volume 11.7 fL (7.4-10.4); Platelet Count 205 K/uL (130-400); RDW Coefficient of Variation 14.1 % (11.5-14.5); RDW Standard Deviation 50.3 fL (36.4-46.3); White Blood Count 23.58 K/uL (4.8-10.8)
[2021-01-24] MEDS: PEPTAMEN 1.5 CAL 1,000 ML BAG GT SCH ×5 (06:25→22:39)
[2021-01-24 06:38] LABS: BUN Creatinine Ratio 49.2 (10-20); Creatinine Clr Calc Pharmacy 60.4 ml/min; Est GFR (Non-African American) 61.3 ml/min; Magnesium 3.1 mg/dl (1.8-2.4); Potassium 5.1 mmol/L (3.5-5.1)
[2021-01-24 06:41] LABS: C Reactive Protein 4.39 mg/dl (0-0.29)
[2021-01-24] MEDS: INSULIN ASPART 100 UNITS/ML 3 ML PEN SC SCH ×5 (07:15→22:38)
[2021-01-24] MEDS: ISOSORBIDE DINITRATE 10 MG TAB PO SCH ×3 (07:29→17:07)
[2021-01-24] MEDS ORDERED: FUROSEMIDE 40 MG in SYRINGE 0 ML IV ONE (07:30)
[2021-01-24] MEDS ORDERED: FUROSEMIDE 40 MG/4 ML VIAL IV ONE (07:45)
--- NOTE | 2021-01-24 07:54 | Hospitalist Progress Note ---
Date of Service January 24, 2021 Assessment & Plan (1) Acute respiratory failure with hypoxia: Plan: 05/13 covid pneumonia (2) 2019 novel coronavirus-infected pneumonia (NCIP): Plan: Unvaccinated patient tested positive for COVID-19 on 01/13. At that time he was started on dexamethasone and Levaquin daily. He resides in a shelter and is chronically on 2 L of oxygen. He began to desaturate prompting admission. He currently maintains on max high flow oxygen supplementation for the last couple of days; he is difficult to prone but nursing is making grand efforts to reposition him which has improved his oxygen saturation greatly today. Patient is expectorating mucous per nursing staff. He was not started on remdesivir secondary to acute kidney injury on admission. Continue efforts to prone, suction, give Lasix as needed and support him through this. Continue dexamethasone-noted increased leukocytosis, likely etiology is from increased dosage with concern for myasthenia history. As neuro less concerned for this as an underlying issue, may decrease this. Recent UA was clear of infection and not fevering. Doesn't appear to have any superimposed bacterial infection. (3) Myasthenia gravis: Plan: Generalized weakness. Continues on pyridostigmine per home regimen. Unconfirmed diagnosis of myasthenia. Never followed up to complete the workup as outpatient prior to all of this. Difficult to tell if/when he is in crisis as cannot monitor NIF with baseline facial weakness. However, after discussion with neurology, this is less likely an issue. Also, as above, oxygen status is better than ever. Reached out to [facility] provider who sees him, states he is a full code, and reports that he has no POA as he likes to make his own care decisions. Palliative care was consulted for a goals of care conversation. He is difficult to converse with, and will need to connect with appropriate family. I did speak with cousin whose number is on chart and had conversation noted above. (4) Elevated troponin: Plan: Troponins are elevated at 0.3 though flat in the trend and do not reflect acute myocardial injury per cardiology. Notably patient is asymptomatic regarding any chest pain or angina symptoms. We will continue daily EKG and avoidance of QT prolonging drugs. We will continue to treat underlying electrolyte abnormalities and optimize nutrition. We will have a low threshold for full anticoagulation if any signs of angina, but this is less likely at this point. We will continue medical management of known CAD in the setting of ischemic cardiomyopathy (5) QT prolongation: Plan: Initial QTC prolongation of 594. Was notably on Levaquin in addition to amiodarone prior to hospitalization likely causing initial QTC prolongation. Avoid QTC prolonging agents if able. QTc now within normal limits. (6) DMII (diabetes mellitus, type 2): Plan: Overall uncontrolled with A1c of 8.7, however, inpatient glucose is within goal range. Continue current insulin therapy. Appreciate inpatient glycemic pharmacy management. (7) Gout: Plan: Continue allopurinol per home regimen daily. (8) Dysphagia causing pulmonary aspiration with swallowing: Plan: s/p PEG placement. Continues on tube feeds. Cont increased amount of free water in setting of hypernatremia on labwork, likely related to increased insensible losses in acute infection (no fever, but increased respiratory rate and effort overall, etc.) (9) Dementia: Plan: Patient has a high risk of hospital-acquired delirium. Nonspecific dementia at baseline per shelter notes. Continue supportive care, reorientation as needed. Remove 1 to 1 now. (10) CKD (chronic kidney disease), stage III: Plan: Initially with acute kidney injury and creatinine of 1.96. Creatinine has now resolved to baseline. Continue to avoid nephrotoxic substances and renally dose meds as needed. (11) Ischemic cardiomyopathy: Plan: Known history of ischemic cardiomyopathy status post ICD placement. He is euvol emic to dry on exam. Continue medical management of cardiac disease with Lipitor, Coreg, Plavix, hydralazine/Isordil. Also has a history of ventricular tachycardia and continues on amiodarone 200 mg daily. A paced on telemetry. Cardiology following patient. Lasix was held initially in setting of hypernatremia and dry mucous membranes; will consider restarting soon with known reduced EF. (12) DVT prophylaxis: Plan: Lovenox Full Code Disposition-continue PCU monitoring Chelita Ruiz DO [facility] Hospitalist Admission and Anticipated Discharge Date Admission Date: January 17, 2021 Subjective 75-year-old man with a history of myasthenia gravis and severe dysphagia on PEG tube feedings presented with acute respiratory failure secondary to Covid 19 pneumonia. Oxygen saturations are declining this morning. Pt still full code. Possible increased pulmonary edema vs worsened covid pneumonia vs myasthenic crisis as top possibilities for decline CXR, ABG, aggressive pulmonary toilet and Lasix 40mg IV now all discussed with nurse. I spoke with only family listed in chart, Mounika, she is a cousin. She is 80 yo and is not POA and not interested in being responsible for him at this time. She is working to find his children (there are 3 daughters) and he has 9 grandchildren which he hasn't spoken to in many years Review of Systems Review of Systems: ROS unobtainable as patient is lying with eyes closed and nonverbal, minimal responses to me but does make communication effort that he is not in pain and his breathing is better. Physical Exam Physical Exam: CONSTITUTIONAL: WNWD, vitals as above, generally ill- appearing, NAD EYES: normal conjunctivae, no scleral icterus ENT: external ear and nose normal, mucous membranes are moist, hi flow nasal canula in place. NECK: trachea midline RESPIRATORY: CTAB-limited exam 2/2 difficulty maneuvering patient, no rales or wheezes, normal respiratory effort CARDIOVASCULAR: regular rate and rhythm, S1 and 2 heard without murmurs, gallops or rubs, no JVD, no peripheral edema CHEST : ICD device+ GASTROINTESTINAL: soft, nontender, ND, PEG tube in place, surrounding skin is clear without redness or drainage, no guarding. MUSCULOSKELETAL: generalized weakness noted symmetrically with some rigidity of his legs bilaterally, bedbound status, head is normocephalic and atraumatic SKIN: warm and dry NEUROLOGIC: CN 2-12 grossly intact, normal cognition, abnormal articulation, however, mucous membranes are also very dry limiting capability, no tremor. PSYCHIATRIC: alert, not very cooperative with exam Results & Data Results & Data ([facility]) Vital Signs (Past 12 Hours) Vital Signs Temp Pulse Pulse Pulse Resp BP BP 01/24/21 07:02 36.3 C L 61 20 161/78 H 01/24/21 05:39 60 26 H 01/24/21 03:47 36.6 C 63 28 H 168/77 H 01/24/21 02:28 66 24 01/23/21 23:20 36.8 C 63 28 H 137/68 01/23/21 23:14 66 01/23/21 23:03 62 24 01/23/21 22:18 66 Pulse Ox 01/24/21 07:02 86 L 01/24/21 05:39 92 01/24/21 03:47 87 L 01/24/21 02:28 91 01/23/21 23:20 87 L 01/23/21 23:14 01/23/21 23:03 92 01/23/21 22:18 Laboratory Results Short CBC 01/23/21 01/24/21 Range/Units 10:37 05:27 WBC 19.03 H 23.58 H (4.8-10.8) K/uL Hgb 12.0 L 12.8 L (14.0-18.0) g/dL Hct 35.8 L 38.5 L (42-52) % Plt Count 196 205 (130-400) K/uL BMP 01/23/21 01/24/21 10:37 05:27 Sodium 142 143 Potassium 5.3 H 5.1 Chloride 114 H 114 H Carbon Dioxide 27 27 BUN 58 H 57 H Creatinine 1.20 1.16 Glucose 141 H 63 L Calcium 7.9 L 8.0 L Cardiac Enzymes 01/24/21 Range/Units 05:27 Total Creatine Kinase 226 (39-308) U/L Medications Administered Current Inpatient Medications Acetaminophen (Acetaminophen Susp 325 Mg/10.15 Ml Udc) 650 mg PEG Q4H PRN PRN Reason: Fever Or Pain Stop: 02/16/21 20:44 Albuterol (Albut/Ipratrop 3mg/0.5mg Neb 3 Ml Vial) 3 ml INH Q4H PRN PRN Reason: weezing/dyspnea Stop: 02/16/21 20:18 Allopurinol (Allopurinol 100 Mg Tab) 100 mg PEG DAILY [facility] Stop: 02/17/21 08:59 Last Admin: 01/23/21 08:07 Dose: 100 mg Documented by: Amiodarone HCl (Amiodarone 200 Mg Tab) 200 mg PO DAILY [facility] Stop: 02/17/21 08:59 Last Admin: 01/23/21 08:07 Dose: 200 mg Documented by: Atorvastatin Calcium (Atorvastatin 40 Mg Tab) 40 mg PEG QPM [facility] Stop: 02/16/21 20:59 Last Admin: 01/23/21 20:24 Dose: 40 mg Documented by: Carvedilol (Carvedilol 6.25 Mg Tab) 6.25 mg PEG BID [facility] Stop: 02/16/21 20:59 Last Admin: 01/23/21 20:27 Dose: 6.25 mg Documented by: Clopidogrel Bisulfate (Clopidogrel Bisulfate 75 Mg Tab) 75 mg PEG DAILY [facility] Stop: 02/17/21 08:59 Last Admin: 01/23/21 08:08 Dose: 75 mg Documented by: Dextrose (Dextrose 50% 50 Ml Syringe) 25 - 50 ml IV UD PRN; Protocol PRN Reason: Hypoglycemia Protocol Stop: 02/16/21 20:18 Enteral Nutritional Formula (Peptamen 1.5 Mario Alberto 1,000 Ml Bag) 250 ml GT 0700,1100,1500,1900,2300 [facility]; Protocol Stop: 02/18/21 10:59 Last Admin: 01/24/21 06:25 Dose: 250 ml Documented by: Famotidine (Famotidine 20 Mg Tab) 20 mg PO DAILY [facility] Stop: 02/17/21 08:59 Last Admin: 01/23/21 08:08 Dose: 20 mg Documented by: Furosemide (Furosemide 20 Mg Tab) 20 mg PO QAM [facility] Stop: 02/17/21 08:59 Last Admin: 01/21/21 09:42 Dose: 20 mg Documented by: Glucagon (Glucagon For Inj 1 Mg Vial) 1 mg SQ UD PRN; Protocol PRN Reason: Hypoglycemia Protocol Stop: 02/16/21 20:18 Glucose (Glucose 10 Tabs/Tube) 4 - 8 tabs PO UD PRN; Protocol PRN Reason: Hypoglycemia Protocol Stop: 02/16/21 20:18 Glucose (Glucose 40% Gel 15 Gm Tube) 15 - 30 gm PO UD PRN; Protocol PRN Reason: Hypoglycemia Protocol Stop: 02/16/21 20:18 Guaifenesin (Guaifenesin Sugar Free 100 Mg/5 Ml Udc) 100 mg PO Q4H PRN PRN Reason: Cough Stop: 02/16/21 20:18 Heparin Sodium (Porcine) (Heparin Sod 5,000 Unit/0.5 Ml Vial) 5,000 units SQ Q8 [facility] Stop: 02/16/21 21:59 Last Admin: 01/24/21 05:29 Dose: 5,000 units Documented by: Hydralazine HCl (Hydralazine 10 Mg Tab) 5 mg PEG BID [facility] Stop: 02/16/21 20:59 Last Admin: 01/23/21 20:26 Dose: 5 mg Documented by: Dexamethasone 10 mg/ Syringe 2.5 mls @ 1 mls/min IV DAILY [facility] Stop: 02/22/21 08:59 Last Admin: 01/23/21 08:08 Dose: 1 mls/min Documented by: Insulin Aspart (Insulin Aspart 100 Units/Ml 3 Ml Pen) 0 units SC 0700,1100,1500,1900,2300 [facility] Stop: 02/18/21 14:59 Last Admin: 01/24/21 07:15 Dose: 13 units Documented by: Insulin Glargine (Insulin Glargine Solostar 100 Units/Ml 3 Ml Pen) 9 units SQ HS [facility] Stop: 02/23/21 20:59 Insulin Human NPH (Insulin Human Nph) 35 units SC DAILY@0900 [facility] Stop: 02/23/21 08:59 Isosorbide Dinitrate (Isosorbide Dinitrate 10 Mg Tab) 10 mg PO TID@0700,1200,1700 [facility] Stop: 02/17/21 06:59 Last Admin: 01/24/21 07:29 Dose: 10 mg Documented by: Melatonin (Melatonin 3 Mg Tab) 6 mg PO HS [facility] Stop: 02/16/21 20:59 Last Admin: 01/23/21 20:24 Dose: 6 mg Documented by: Miscellaneous (Carbohydrates For Hypoglycemia ) 15 - 30 gm PO UD PRN PRN Reason: Hypoglycemia Protocol Stop: 02/16/21 20:18 Last Admin: 01/21/21 06:21 Dose: 15 gm Documented by: Miscellaneous Information (Pharmacy Glycemic Mgmt Consult) 1 ea N/A UD PRN PRN Reason: Consult Stop: 02/18/21 14:44 Ondansetron HCl (Ondansetron 4 Mg Od Tab) 4 mg PO Q6H PRN PRN Reason: Nausea Stop: 02/16/21 20:57 Potassium Chloride (Potassium Chloride 20 Meq/15 Ml Udc) 20 meq PEG DAILY [facility] Stop: 02/17/21 08:59 Last Admin: 01/22/21 08:52 Dose: 20 meq Documented by: Pyridostigmine [place] (Pyridostigmine [place] 60 Mg Tab) 60 mg PO TID [facility] Stop: 02/16/21 20:59 Last Admin: 01/23/21 20:28 Dose: 60 mg Documented by: Sterile Water (Tube Feeding Water Flush) 200 ml GT Q4H [facility] Stop: 02/20/21 18:29 Last Admin: 01/24/21 05:29 Dose: 200 ml Documented by: Vitamin D (Cholecalciferol 1,000 Units 25 Mcg Tab) 1,000 units PEG DAILY [facility] Stop: 02/17/21 08:59 Last Admin: 01/23/21 08:08 Dose: 1,000 units Documented by:
--- NOTE | 2021-01-24 08:14 | XRay Report ---
XR chest 1V portable CLINICAL HISTORY: worsening hypoxia, covid pneumonia COMPARISON STUDY: Chest radiograph January 19, 2021. FINDINGS: Left subclavian pacermaker/AICD is in place. There are median sternotomy wires and mediasti nal surgical clips. There is no pneumothorax. Right lung volume loss is noted. Asymmetric right lung opacity is noted. Right lung aeration has slightly improved. There is no pneumothorax. There is no de finite pleural effusion. IMPRESSION: 1. Asymmetric right lung airspace opacity which favors pneumonia. Slight improvement in right lung ae ration since prior exam. 2. Cardiomegaly. No evidence for pulmonary edema. ACT 112: Negative or not required by law. Electronically signed by: Merlin Capone M.D. 01/24/2021 8:13 AM
[2021-01-24] MEDS: allopurinoL 100 MG TAB PEG SCH (08:24)
[2021-01-24] MEDS: carvediloL 6.25 MG TAB PEG SCH ×2 (08:24→20:13)
[2021-01-24] MEDS: AMIODARONE 200 MG TAB PO SCH (08:24)
[2021-01-24] MEDS: CHOLECALCIFEROL 1,000 UNITS 25 MCG TAB PEG SCH (08:25)
[2021-01-24] MEDS: FAMOTIDINE 20 MG TAB PO SCH (08:25)
[2021-01-24] MEDS: CLOPIDOGREL BISULFATE 75 MG TAB PEG SCH (08:25)
[2021-01-24] MEDS: hydrALAZINE 10 MG TAB PEG SCH ×2 (08:26→20:12)
[2021-01-24] MEDS: PYRIDOSTIGMINE BROMIDE 60 MG TAB PO SCH ×3 (08:26→20:13)
[2021-01-24] MEDS: dexAMETHasone 10 MG in SYRINGE 0 ML IV SCH (08:27)
--- NOTE | 2021-01-24 08:59 | Pharmacy Report ---
Pharmacy Glycemic Short Note 2 - Date of Service January 24, 2021 - Glycemic Short BSG Results (Last 24 hours): 01/23/21 01/23/21 01/23/21 10:37 10:53 14:59 Glucose 141 H POC Glucose 118 H 94 01/23/21 01/23/21 01/24/21 18:43 22:37 05:27 Glucose 63 L POC Glucose 194 H 136 H 01/24/21 06:25 Glucose POC Glucose 72 OUTPATIENT ANTIDIABETIC REGIMEN: * Insulin Glargine 14 units Hs * A1c 8.7% 01/18/21 ASSESSMENT: 01/24/21 * Patient's BSGs yesterday were [phone] mg/dL. Patient received 134 units of insulin (54 units of basal of which 40 units were NPH and 14 units were lantus and 680 units of bolus). * Fasting today was 72 mg/dL. * Reduce Lantus to 9 units (35% reduction) * Decrease NPH to 35 units daily --- BSGs trended lower yesterday throughout the day with almost all below 140 mg/dL and all but one below 120 mg/dL. This is follows a trend of BSGs trending down overall in general across several days. * Continue current Novolog orders. 01/23/21 * Patient's BSGs yesterday were [phone] mg/dL. Patient received 121 units of insulin (54 units of basal of which 40 units were NPH and 14 units were lantus and 67 units of bolus). * Fasting today was 91 mg/dL. * Continue Lantus home dose of 14 units * Continue NPH 40 units daily due. One BSG later in day elevated most likely because 1800 and 2300 bolus feed are close together * Continue current Novolog orders. 01/21/21 * Patient's BSGs yesterday were [phone] mg/dL. Patient received 135 units of insulin (55 units of basal of which 30 units were NPH and 25 units were lantus and 80 units of bolus). * Fasting today was 54 mg/dL. * Decrease Lantus to home dose of 14 units (50% reduction). Hypoglycemic this morning since dexamethasone shifted to morning. * Increase NPH by 20% to 40 units daily due to elevated BSGs later in the day. * Continue current Novolog orders. Background * Patient with extensive medical history admitted with COVID-19. Patient receiving bolus feeding and dexamethasone 6 mg IV contributing to hyperglycemia * Patient does seem to trend down overnight with lantus administration, 122 mg/dL this morning, will continue current lantus dose * Patient trends upward the rest of the day, will tighten carb ratio this evening and correction factor slightly * Dexamethasone being administered in the evening, will move to AM and begin NPH 0.4 units/kg along with NPH. Did not want to administer NPH at night since patient trends down. PLAN FOR INPATIENT GLYCEMIC CONTROL: * Hold outpatient oral diabetes medications * Basal insulin * Lantus 9 units SQ HS + NPH 35 units SQ daily * Bolus insulin * NovoLog per scale ACHS or Q6hrs while NPO * Goal Range: Low 110 mg/dL - High 140 mg/dL * Correction Factor: 15 mg/dL/unit * Nutritional / Prandial insulin per carb ratio of 1 unit per 4 grams CHO consumed PLAN FOR DISCHARGE: * tbd
[2021-01-24] MEDS: INSULIN HUMAN NPH SC SCH (09:32)
[2021-01-24 09:42] LABS: Base Excess ABG -0.3 mEq/L (-9-1.8); HCO3 ABG 23 mmol/L (19-24); Oxygen Saturation ABG 94.1 % (90-95); PCO2 ABG 31 mmHg (35-46); PO2 ABG 65 mmHg (80-95); pH ABG 7.47 (7.35-7.45)
[2021-01-24 09:44] LABS: Allen Test Pos (Pos)
--- NOTE | 2021-01-24 14:37 | Consultation Report ---
NEUROLOGY CONSULTATION DATE OF CONSULTATION: 01/24/2021. CONSULTATION REQUESTED BY: Dr. Chelita Ruiz. CHIEF COMPLAINT: Acute respiratory failure. HISTORY OF PRESENT ILLNESS: A 75-year-old male with multiple medical comorbidities including type 2 diabetes, dyslipidemia, coronary artery disease, hypertension, AICD, dysphagia, status post PEG tube, CKD, bilateral carotid artery stenosis, status post left carotid endarterectomy in 11/2020. Admitted on 01/18/2021 for worsening shortness of breath due to COVID-19. The patient resides at [facility]. He is on oxygen supplementation at home. He tested positive for COVID on 01/13 and was started on dexamethasone and Levaquin. His breathing got worse and his oxygen supplementation increased. He is on 2 liters of oxygen at home, although was requiring 3 liters. Oxygen saturation was at 85%. The patient felt fatigued and weak. He has since been admitted for acute on chronic respiratory failure due to presumed COVID pneumonia as well as congestive heart failure. The patient was seen by myself in 2019 for ongoing bilateral eye ptosis, dysphagia, and blepharospasm. Workup ensued at that time including a myasthenia gravis antibody panel as well as a CK level and a trial of Mestinon. His further followups were canceled by the patient and he had not returned to see me. He had since been seen by a neurology practice in [place] regarding discussion of his neck and possible cervical disk disease. He also saw gastroenterology in the interim and obtained a PEG tube. Neurology was consulted on this admission for further clarification of possible neuromuscular disease. ALLERGIES: PENICILLINS, TETRACYCLINES, OXYTETRACYCLINE. HOME MEDICATIONS: Tylenol, allopurinol, amiodarone, Lipitor, carvedilol, vitamin D, Plavix, dexamethasone, famotidine, furosemide, guaifenesin, hydralazine, insulin, isosorbide dinitrate, levofloxacin, loperamide, melatonin, Zofran, potassium chloride, Mestinon. PAST MEDICAL HISTORY: Ptosis, bilateral carotid artery stenosis, hypertension, CAD, CHF, insulin-dependent diabetes, dysphagia, CKD. PAST SURGICAL HISTORY: Left carotid endarterectomy in 11/2020, status post PEG tube. FAMILY HISTORY: Unable to be obtained due to patient's current mental status. SOCIAL HISTORY: The patient lives at [facility]. He requires a mechanical lift as well as continuous oxygen. REVIEW OF SYSTEMS: Unable to be obtained due to patient's encephalopathy. PHYSICAL EXAMINATION: VITAL SIGNS: Blood pressure 127/69, pulse is 80, respiratory rate 22, temperature is 36.3 degrees Celsius, oxygen saturation is 96% on high-flow nasal cannula 60 liters per minute. The patient appears acutely ill. He is in no distress. He appears to be sleeping with high-flow oxygen on. There is a scar on the left side of his neck from prior carotid endarterectomy. His tongue is protruded and he has pursed lip breathing. Eyes are closed, although at times opens them out and appears to have bilateral eye ptosis. He has no gaze preference. He is nonverbal. He is not following simple commands. Opens eyes occasionally to sternal rub. He is moving all 4 extremities against gravity. His lower extremities reveal no significant edema. He has no tremor or myoclonic jerks. Gait evaluation, he is unable to ambulate currently. Not following for [id number] testing. Not following for formal strength testing. DIAGNOSTIC TESTING AND LABORATORY VALUES: WBC 23.58, RBC 3.90, hemoglobin 12.8, platelet count 205. Blood gas; ABG pH is 7.47, ABG pCO2 is 31. Sodium 143, potassium 5.1, chloride 114, carbon dioxide 27, BUN is 57, creatinine 1.16, glucose is 63. Hemoglobin A1c is 8.7. Total creatine kinase is 226. C-reactive protein is 4.39. Chest x-ray, asymmetric right lung airspace opacity which favors pneumonia. Slight improvement in right lung aeration since prior exam. Cardiomegaly. No evidence of pulmonary edema. IMPRESSION AND PLAN: A 75-year-old male with multiple medical comorbidities including insulin-dependent diabetes, coronary artery disease, peripheral vascular disease, status post left carotid endarterectomy -- on Plavix, chronic obstructive pulmonary disease, progressive dysphagia, ptosis, and weakness, admitted with COVID pneumonia with acute respiratory failure. On examination, the patient is encephalopathic, presumed due to COVID-19. The patient was seen by myself as an outpatient for progressive ongoing bilateral eye ptosis, blepharospasm, and dysphagia in 2019. The diagnosis is ultimately uncertain on this patient in regards to his neuromuscular condition. Workup to date has been negative for myasthenia gravis including a formal myasthenia gravis antibody panel. Symptoms per chart review from 2019 did not show any fluctuations and seemed to be more progressive. CK levels have been normal. Per my chart review, I could not see any indication that the patient responded to Mestinon and he was lost to follow up as he did seek second opinions with outside providers. Afterwards, he did receive a PEG tube as well as there was a discussion regarding cervical spine surgery. Overall, given the workup to date as well as current clinical presentation, I do believe the acute issue is the COVID-19 pneumonia and agree with supportive care measures. Prognosis seems poor and agree/appreciate palliative care consultation regarding goals of care/code status. 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 There is no treatment for this condition. The patient does have a PEG tube already in place. My overall clinical impression for myasthenia gravis exacerbation is low. Okay with stopping Mestinon as well as steroids for questionable myasthenia gravis. I will continue to follow remotely regarding this patient and will be available for any questions or concerns. Thank you for the consultation. Job ID: [id number] [id number]
[2021-01-24] MEDS: MELATONIN 3 MG TAB PO SCH (20:11)
[2021-01-24] MEDS: ATORVASTATIN 40 MG TAB PEG SCH (20:11)
[2021-01-24] MEDS ORDERED: INSULIN GLARGINE SOLOSTAR 100 UNITS/ML 3 ML PEN SQ SCH ×2 (21:00)
[2021-01-25] MEDS: TUBE FEEDING WATER FLUSH GT SCH ×6 (03:09→19:23)
[2021-01-25] MEDS: PEPTAMEN 1.5 CAL 1,000 ML BAG GT SCH ×3 (06:30→14:59)
[2021-01-25] MEDS: HEPARIN SOD 5,000 UNIT/0.5 ML VIAL SQ SCH ×2 (06:30→13:50)
[2021-01-25 07:33] LABS: Basophils # (auto) 0.02 K/uL (0-0.2); Basophils % (auto) 0.1 %; Eosinophils # (auto) 0.01 K/uL (0-0.5); Hematocrit (blood only) 37.8 % (42-52); Hemoglobin 12.7 g/dL (14.0-18.0); Immature Granulocytes # (auto) 0.19 K/uL (0.00-0.02); Immature Granulocytes % (auto) 0.8 %; Lymphocytes # (auto) 4.56 K/uL (1.2-3.4); Lymphocytes % (auto) 18.8 %; Mean Corpuscular Hgb Conc 33.6 g/dL (32-36); Mean Corpuscular Volume 98.2 fL (80-100); Mean Platelet Volume 11.6 fL (7.4-10.4); Monocytes % (auto) 2.1 %; Neutrophils # (auto) 18.96 K/uL (1.4-6.5); Neutrophils % (auto) 78.2 %; Platelet Count 221 K/uL (130-400); RDW Coefficient of Variation 14.4 % (11.5-14.5); RDW Standard Deviation 51.8 fL (36.4-46.3); Red Blood Count 3.85 M/uL (4.7-6.1); White Blood Count 24.24 K/uL (4.8-10.8)
[2021-01-25] MEDS: INSULIN ASPART 100 UNITS/ML 3 ML PEN SC SCH ×3 (07:45→15:06)
[2021-01-25 07:51] LABS: BUN Creatinine Ratio 52.5 (10-20); Calcium 7.8 mg/dl (8.5-10.1); Creatinine Clr Calc Pharmacy 55.6 ml/min; Est GFR (African American) 64.2 ml/min; Est GFR (Non-African American) 55.4 ml/min; Potassium 5.2 mmol/L (3.5-5.1)
[2021-01-25 07:53] LABS: C Reactive Protein 8.24 mg/dl (0-0.29); Phosphorus 3.2 mg/dl (2.5-4.9)
[2021-01-25] MEDS: ISOSORBIDE DINITRATE 10 MG TAB PO SCH ×3 (07:59→16:11)
[2021-01-25] MEDS: allopurinoL 100 MG TAB PEG SCH (09:20)
[2021-01-25] MEDS: AMIODARONE 200 MG TAB PO SCH (09:21)
[2021-01-25] MEDS: CHOLECALCIFEROL 1,000 UNITS 25 MCG TAB PEG SCH (09:21)
[2021-01-25] MEDS: carvediloL 6.25 MG TAB PEG SCH (09:21)
[2021-01-25] MEDS: CLOPIDOGREL BISULFATE 75 MG TAB PEG SCH (09:21)
[2021-01-25] MEDS: dexAMETHasone 10 MG in SYRINGE 0 ML IV SCH (09:22)
[2021-01-25] MEDS: hydrALAZINE 10 MG TAB PEG SCH (09:22)
[2021-01-25] MEDS: FAMOTIDINE 20 MG TAB PO SCH (09:22)
[2021-01-25] MEDS: PYRIDOSTIGMINE BROMIDE 60 MG TAB PO SCH (09:23)
[2021-01-25] MEDS: INSULIN HUMAN NPH SC SCH (09:58)
--- NOTE | 2021-01-25 10:12 | Hospitalist Progress Note ---
Date of Service January 25, 2021 Assessment & Plan (1) Acute respiratory failure with hypoxia: Plan: 05/13 covid pneumonia (2) 2019 novel coronavirus-infected pneumonia (NCIP): Plan: Unvaccinated patient tested positive for COVID-19 on 01/13. At that time he was started on dexamethasone and Levaquin daily. He resides in a detention and is chronically on 2 L of oxygen. He began to desaturate prompting admission. He was not started on remdesivir secondary to acute kidney injury on admission. Dexamethasone was increased at one point out of concern for MG with ?crisis which was difficult to discern. Neurology was consutled and feels his situation is related to covid pneumonia and that he likely has a muscular dystrophy, not myasthenia. Pyridostigmine was stopped this am and his dexamethasone was decreased back to 6mg IV daily. He currently maintains on max high flow oxygen supplementation for the last couple of days; he is difficult to prone and somewhat resistant to repositioning efforts. He was initially clearing secretions earlier in the stay, but has worsened overnight and saturations are going down. He was placed on BIPAP this am and was not able to be successfully transitioned to Vapotherm. Doesn't appear to have any superimposed bacterial infection. Contacted ICU who will evaluate, however, in light of progressive neuromuscular condition that was already in poor state coming into covid, intubation and mechanical ventilation may not be appropriate. Will again try Lasix 40mg IV now and will obtain CXR to ensure no new changes since last film yesterday. (3) Myasthenia gravis: Plan: Generalized weakness. Unconfirmed diagnosis of myasthenia. Never followed up to complete the workup as outpatient prior to all of this. Unresponsive. Per neurology, stopping pyridostigmine at this time. More likely a muscular dystrophy. (4) Elevated troponin: Plan: likely related to demand ischemia vs covid in setting of ischemic cardiomypathy. (5) QT prolongation: Plan: Initial QTC prolongation of 594. Was notably on Levaquin in addition to amiodarone prior to hospitalization likely causing initial QTC prolongation which then resolved with adjustment in medication. Avoid QTC prolonging agents if able. (6) DMII (diabetes mellitus, type 2): Plan: Overall uncontrolled with A1c of 8.7. Continue current insulin therapy. Appreciate inpatient glycemic pharmacy management. (7) Gout: Plan: Continue allopurinol per home regimen daily. (8) Dysphagia causing pulmonary aspiration with swallowing: Plan: s/p PEG placement. Continues on tube feeds. Cont increased amount of free water in setting of hypernatremia on labwork (9) Dementia: Plan: Patient has a high risk of hospital-acquired delirium. Nonspecific dementia at baseline per detention notes. (10) CKD (chronic kidney disease), stage III: Plan: Initially with acute kidney injury and creatinine of 1.96. Creatinine has now resolved to baseline. Continue to avoid nephrotoxic substances and renally dose meds as needed. (11) Ischemic cardiomyopathy: Plan: Known history of ischemic cardiomyopathy status post ICD placement. He is euvolemic to dry on exam. Continue medical management of cardiac disease with Lipitor, Coreg, Plavix, hydralazine/Isordil. Also has a history of ventricular tachycardia and continues on amiodarone 200 mg daily. A paced on telemetry. Cardiology following patient. Lasix was held initially in setting of hypernatremia and dry mucous membranes; will consider restarting soon with known reduced EF. (12) DVT prophylaxis: Plan: Lovenox Full Code Disposition-very guarded prognosis. Cont current therapies. Chelita Ruiz DO [facility] Hospitalist Admission and Anticipated Discharge Date Admission Date: January 17, 2021 Subjective 75-year-old man with a history of progressive neuromuscular condition including severe dysphagia s/p h/o PEG placement earlier this year and known speech difficulties at baseline presents with worsening acute respiratory failure in setting of covid pneumonia. tube feedings presented with acute respiratory failure secondary to Covid 19 pneumonia. 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 he is back on BIPAP and is tachypneic, appearing in respiratory distress Lasix given yesterday--ins and outs have not been accurately documented (no documentation of his tube feeds) so uncertain of the effect. Discussed case with [place]. Review of Systems Review of Systems: cannot obtain ROS as patient is nonverbal with eyes closed, less responsive, known h/o dementia. Physical Exam Physical Exam: CONSTITUTIONAL: WNWD, vitals as above, generally ill- appearing, increased work of breathing on BIPAP. Doesn't appear comfortable. EYES: normal conjunctivae, no scleral icterus ENT: external ear and nose normal, BIPAP in place. NECK: trachea midline RESPIRATORY: CTAB-limited exam 2/2 difficulty maneuvering patient, no rales or wheezes CARDIOVASCULAR: regular rate and rhythm, S1 and 2 heard without murmurs, gallops or rubs, no JVD, no peripheral edema CHEST : ICD device+ GASTROINTESTINAL: soft, nontender, ND, PEG tube in place, surrounding skin is clear without redness or drainage, no guarding. MUSCULOSKELETAL: generalized weakness noted symmetrically with some rigidity of his legs bilaterally, bedbound since admission, difficult to reposition in bed, can be resistant to maneuvering, head is normocephalic and atraumatic SKIN: warm and dry NEUROLOGIC: CN 2-12 grossly intact, unresponsive to attempts to communicate. Results & Data Results & Data ([facility]) Vital Signs (Past 12 Hours) Vital Signs Temp Pulse Pulse Pulse Resp BP Pulse Ox 01/25/21 08:27 64 30 H 93 01/25/21 07:06 36.5 C 60 18 128/60 91 01/25/21 06:18 64 18 94 01/25/21 04:23 55 L 18 100 01/25/21 04:01 61 01/25/21 02:34 36.4 C L 67 20 138/84 90 01/24/21 23:10 60 18 90 01/24/21 22:55 36.2 C L 62 19 126/73 96 Laboratory Results Short CBC 01/25/21 Range/Units 06:47 WBC 24.24 H (4.8-10.8) K/uL Hgb 12.7 L (14.0-18.0) g/dL Hct 37.8 L (42-52) % Plt Count 221 (130-400) K/uL BMP 01/25/21 06:47 Sodium 139 Potassium 5.2 H Chloride 111 H Carbon Dioxide 27 BUN 66 H Creatinine 1.26 Glucose 75 Calcium 7.8 L Medications Administered Current Inpatient Medications Acetaminophen (Acetaminophen Susp 325 Mg/10.15 Ml Udc) 650 mg PEG Q4H PRN PRN Reason: Fever Or Pain Stop: 02/16/21 20:44 Albuterol (Albut/Ipratrop 3mg/0.5mg Neb 3 Ml Vial) 3 ml INH Q4H PRN PRN Reason: weezing/dyspnea Stop: 02/16/21 20:18 Allopurinol (Allopurinol 100 Mg Tab) 100 mg PEG DAILY ANDRES Stop: 02/17/21 08:59 Last Admin: 01/25/21 09:20 Dose: 100 mg Documented by: Amiodarone HCl (Amiodarone 200 Mg Tab) 200 mg PO DAILY ANDRES Stop: 02/17/21 08:59 Last Admin: 01/25/21 09:21 Dose: 200 mg Documented by: Atorvastatin Calcium (Atorvastatin 40 Mg Tab) 40 mg PEG QPM ANDRES Stop: 02/16/21 20:59 Last Admin: 01/24/21 20:11 Dose: 40 mg Documented by: Carvedilol (Carvedilol 6.25 Mg Tab) 6.25 mg PEG BID ANDRES Stop: 02/16/21 20:59 Last Admin: 01/25/21 09:21 Dose: 6.25 mg Documented by: Clopidogrel Bisulfate (Clopidogrel Bisulfate 75 Mg Tab) 75 mg PEG DAILY ANDRES Stop: 02/17/21 08:59 Last Admin: 01/25/21 09:21 Dose: 75 mg Documented by: Dextrose (Dextrose 50% 50 Ml Syringe) 25 - 50 ml IV UD PRN; Protocol PRN Reason: Hypoglycemia Protocol Stop: 02/16/21 20:18 Enteral Nutritional Formula (Peptamen 1.5 Mario Alberto 1,000 Ml Bag) 250 ml GT 0700,1100,1500,1900,2300 [facility]; Protocol Stop: 02/18/21 10:59 Last Admin: 01/25/21 06:30 Dose: 250 ml Documented by: Famotidine (Famotidine 20 Mg Tab) 20 mg PO DAILY ANDRES Stop: 02/17/21 08:59 Last Admin: 01/25/21 09:22 Dose: 20 mg Documented by: Glucagon (Glucagon For Inj 1 Mg Vial) 1 mg SQ UD PRN; Protocol PRN Reason: Hypoglycemia Protocol Stop: 02/16/21 20:18 Glucose (Glucose 10 Tabs/Tube) 4 - 8 tabs PO UD PRN; Protocol PRN Reason: Hypoglycemia Protocol Stop: 02/16/21 20:18 Glucose (Glucose 40% Gel 15 Gm Tube) 15 - 30 gm PO UD PRN; Protocol PRN Reason: Hypoglycemia Protocol Stop: 02/16/21 20:18 Guaifenesin (Guaifenesin Sugar Free 100 Mg/5 Ml Udc) 100 mg PO Q4H PRN PRN Reason: Cough Stop: 02/16/21 20:18 Heparin Sodium (Porcine) (Heparin Sod 5,000 Unit/0.5 Ml Vial) 5,000 units SQ Q8 ANDRES Stop: 02/16/21 21:59 Last Admin: 01/25/21 06:30 Dose: 5,000 units Documented by: Hydralazine HCl (Hydralazine 10 Mg Tab) 5 mg PEG BID ANDRES Stop: 02/16/21 20:59 Last Admin: 01/25/21 09:22 Dose: 5 mg Documented by: Dexamethasone 6 mg/ Syringe 1.5 mls @ 1 mls/min IV DAILY ANDRES Stop: 02/25/21 08:59 Insulin Aspart (Insulin Aspart 100 Units/Ml 3 Ml Pen) 0 units SC 0700,1100,1500,1900,2300 [facility] Stop: 02/18/21 14:59 Last Admin: 01/25/21 07:45 Dose: 13 units Documented by: Insulin Glargine (Insulin Glargine Solostar 100 Units/Ml 3 Ml Pen) 10 units SQ HS ANDRES Stop: 02/23/21 20:59 Last Admin: 01/24/21 21:03 Dose: 10 units Documented by: Insulin Human NPH (Insulin Human Nph) 35 units SC DAILY@0900 ANDRES Stop: 02/23/21 08:59 Last Admin: 01/25/21 09:58 Dose: 35 units Documented by: Isosorbide Dinitrate (Isosorbide Dinitrate 10 Mg Tab) 10 mg PO TID@0 700,1200,1700 [facility] Stop: 02/17/21 06:59 Last Admin: 01/25/21 07:59 Dose: 10 mg Documented by: Melatonin (Melatonin 3 Mg Tab) 6 mg PO HS [facility] Stop: 02/16/21 20:59 Last Admin: 01/24/21 20:11 Dose: 6 mg Documented by: Miscellaneous (Carbohydrates For Hypoglycemia ) 15 - 30 gm PO UD PRN PRN Reason: Hypoglycemia Protocol Stop: 02/16/21 20:18 Last Admin: 01/21/21 06:21 Dose: 15 gm Documented by: Miscellaneous Information (Pharmacy Glycemic Mgmt Consult) 1 ea N/A UD PRN PRN Reason: Consult Stop: 02/18/21 14:44 Ondansetron HCl (Ondansetron 4 Mg Od Tab) 4 mg PO Q6H PRN PRN Reason: Nausea Stop: 02/16/21 20:57 Sterile Water (Tube Feeding Water Flush) 200 ml GT Q4H ANDRES Stop: 02/20/21 18:29 Last Admin: 01/25/21 06:30 Dose: 200 ml Documented by: Vitamin D (Cholecalciferol 1,000 Units 25 Mcg Tab) 1,000 units PEG DAILY [facility] Stop: 02/17/21 08:59 Last Admin: 01/25/21 09:21 Dose: 1,000 units Documented by:
[2021-01-25 11:10] LABS: Allen Test Pos (Pos); Base Excess ABG -0.9 mEq/L (-9-1.8); HCO3 ABG 23 mmol/L (19-24); Oxygen Saturation ABG 96.2 % (90-95); PCO2 ABG 37 mmHg (35-46); PO2 ABG 78 mmHg (80-95); pH ABG 7.42 (7.35-7.45)
[2021-01-25] MEDS ORDERED: FUROSEMIDE 40 MG in SYRINGE 0 ML IV STA (16:15)
[2021-01-25] MEDS ORDERED: FUROSEMIDE 40 MG/4 ML VIAL IV ONE (16:22)
[2021-01-25] MEDS ORDERED: FUROSEMIDE 40 MG/4 ML VIAL IV STA (16:28)
--- NOTE | 2021-01-25 16:57 | XRay Report ---
XR chest 1V portable CLINICAL HISTORY: worsening SOB, +covid pna COMPARISON STUDY: Chest radiograph January 24, 2021. FINDINGS: Dual lead left subclavian pacemaker/AICD, median sternotomy wires and mediastinal surgical clips are present. Interval development of the right apical opacity with volume loss is noted. This m ay reflect right upper lobe collapse. There are probable left basilar opacity. Cardiomegaly is unchan ged. IMPRESSION: 1. Interval development of right apical opacity with volume loss. This may reflect right upper lobe c ollapse. Although indeterminate, this could be due to a mucous plug. Radiographic follow-up is recomm ended. This finding will be called/faxed to the ordering provider at time of dictation. 2. Additional bilateral airspace opacities which favor an infectious process. 3. Cardiomegaly. ACT 112: Negative or not required by law. Electronically signed by: Merlin Capone M.D. 01/25/2021 4:55 PM
--- NOTE | 2021-01-25 17:02 | Communication Note ---
Date of Service: January 25, 2021 Called by nurse around 4pm that patient was looking tachypneic and uncomfortable, verge of respiratory arrest. Called Mrs. Mounika Boyle and explained the futility of intubating him with underlying progressive neuromuscular weakness, also the absolute certainty of causing him suffering if he were to need CPR. She verbalized understanding and was fine with a transition to comfort care measures. Upon contacting the nurse back again, the situation has changed after the Lasix where he is more calm and not in as much respiratory distress. As he is comfortable at this time, we will continue with treatment, however, will change his code status to DNR/DNI. Discussed the plan with primary nurse who verbalized understanding. DO Joseph
--- NOTE | 2021-01-25 17:29 | Communication Note ---
Date of Service: January 25, 2021 Called by hospitalists about this patient. Discussed extensively and chart reviewed. Pt is unable to make decisions for himself and no family available. He has a progressive neurological disorder that has required PEG tube placement and now has COVID. He is on BIPAP. I feel that he is a poor candidate for aggressive interventions such as intubation and mechanical ventilation which would likely result in tracheostomy placement. None of these interventions would alter his neurological status or prognosis. Given his progressive neuro dysfunction, would recommend palliative care, DNR/DNI status and no escalation of care. Full CC consult to follow. Coding Level of Care Code None
[2021-01-25] MEDS ORDERED: MoRPHine SULFATE 2 MG/ML CARP IV PRN (18:29)
[2021-01-25] MEDS ORDERED: ATROPINE SULFATE 1% OP SOLN 5 ML BTL SL PRN (18:29)
[2021-01-25] MEDS ORDERED: MoRPHine SULFATE 5 MG/0.25 ML UDP PO PRN (18:29)
[2021-01-25] MEDS ORDERED: ONDANSETRON INJ 2 MG/ML 2 ML VIAL IV PRN (18:29)
[2021-01-25] MEDS ORDERED: MoRPHine SULFATE 4 MG/ML 1 ML CARP\\VIAL IV STA (18:29)
[2021-01-25] MEDS ORDERED: LORazepam 0.5 MG/1 ML VIAL IV PRN (18:29)
[2021-01-25] MEDS ORDERED: LORazepam 0.5 MG TAB PO PRN (18:29)
--- NOTE | 2021-01-25 18:39 | Communication Note ---
Date of Service: January 25, 2021 Called by nurse to bedside, patient has very poor effort breathing on the BIPAP mask, patient is blue with low tidal volume, short, shallow breaths. He is unresponsive. Transitioning him to comfort measures at this time. Morphine 4gm IV now, BIPAP to oxymask. He ceased to breathe later this evening. I notified his daughter, Nadine (last name unknown) in [facility] at number provided by patient case coordinator --daughter was reportedly estranged. I also notified Mrs. Mounika Boyle of his passing. Will await further instructions regarding arrangements from [facility]. Joseph, DO
--- NOTE | 2021-01-25 19:49 | Critical Care Consultation ---
Date of Consultation January 25, 2021 Assessment & Plan (1) 2019 novel coronavirus-infected pneumonia (NCIP): Consultation per hospitalist request. Per conversation with my attending physician, given the patient's progressive neurological condition of which the patient is now nonverbal and with PEG tube in place for nutritional supplementation coupled with the new diagnosis of COVID-19 pneumonia and escalating oxygen requirements, it is felt best that the patient not undergo any further invasive procedures, i.e. intubation. Recommendation was for discussion regarding palliative care. Prior to my assessment of the patient at bedside, Dr. Ruiz had apparently contacted family and they had agreed to no escalation of care. Patient was actually made comfort measures only and just prior to my assessment, the patient had at 1911 per conversation with bedside nurse. Level 3 inpatient billing failure History of Present Illness Attending Physician: Chelita Ruiz, DO History of Present Illness Patient is a 75-year-old male who has been in long-term care at [facility] with multiple comorbidities including CKD 3, ischemic cardiomyopathy, diabetes, with recent diagnosis of progressive generalized weakness, dysphagia, and with recent PEG tube placement for feeding. Initial evaluation has been negative for myasthenia, however he has presented with a similar neurological pattern. Unfortunately, the patient is nonverbal at baseline. He was diagnosed with COVID-19 and has had increasing oxygen requirement throughout his stay. Patient now requiring BiPAP. Consultation was placed by attending hospitalist. My attending physician, Dr. Paulino, did speak with Dr. Ruiz regarding ongoing management of patient. Per assessment of patient's baseline disease stated progressive neurologic condition in the setting of worsening COVID-19 pneumonia, it was felt best that palliative care evaluation and no aggressive intervention be sought. Per review of Dr. Ruiz's note, she was able to speak with family who requests no escalation of care. Patient to be made comfort measures only. Allergies Allergy/AdvReac Type Severity Reaction Status Date / Time oxytetracycline Allergy Unknown Verified 01/17/21 17:04 [From Terramycin] Penicillins Allergy Unknown Verified 01/17/21 17:04 Tetracyclines Allergy Unknown Verified 01/17/21 17:04 Home Medications Medication Instructions Recorded Confirmed Type acetaminophen 325 mg tablet 650 mg FEEDING TUBE Q4 PRN 01/17/21 01/17/21 History (Tylenol) allopurinol 100 mg tablet 100 mg FEEDING TUBE DAILY 01/17/21 01/17/21 History amiodarone 200 mg tablet 200 mg FEEDING TUBE DAILY 01/17/21 01/17/21 History atorvastatin 40 mg tablet 40 mg FEEDING TUBE QPM 01/17/21 01/17/21 History carvedilol 6.25 mg tablet 6.25 mg FEEDING TUBE BID 01/17/21 01/17/21 History cholecalciferol (vitamin D3) 25 25 mcg FEEDING TUBE DAILY 01/17/21 01/17/21 History mcg (1,000 unit) capsule (Vitamin D3) clopidogrel 75 mg tablet 75 mg FEEDING TUBE DAILY 01/17/21 01/17/21 History dexamethasone 6 mg tablet 6 mg PO DAILY 01/17/21 01/17/21 History famotidine 20 mg tablet 20 mg FEEDING TUBE DAILY 01/17/21 01/17/21 History furosemide 20 mg tablet 20 mg FEEDING TUBE QAM 01/17/21 01/17/21 History guaifenesin 100 mg/5 mL oral 0 mg PO Q4H PRN 01/17/21 01/17/21 History liquid (Robafen) hydralazine 10 mg tablet 5 mg FEEDING TUBE BID 01/17/21 01/17/21 History insulin glargine 100 unit/mL (3 14 unit SUBCUT HS 01/17/21 01/17/21 History mL) subcutaneous pen (Lantus Solostar U-100 Insulin) ipratropium 0.5 mg-albuterol 3 mg 3 ml INHALATION Q4 PRN 01/17/21 01/17/21 History (2.5 mg base)/3 mL nebulization soln isosorbide dinitrate 10 mg tablet 10 mg FEEDING TUBE TID 01/17/21 01/17/21 History levofloxacin 750 mg tablet 750 mg FEEDING TUBE DAILY 01/17/21 01/17/21 History loperamide 2 mg tablet 2 mg FEEDING TUBE QID PRN 01/17/21 01/17/21 History melatonin 5 mg tablet 10 mg PO HS 01/17/21 01/17/21 History nut.tx.imp.renal fxn,lac-reduc 237 ea FEEDING TUBE QID 01/17/21 01/17/21 History 0.04 gram-1.8 kcal/mL oral liquid (Suplena Carb Steady) ondansetron HCl 4 mg tablet 4 mg PO Q6H PRN 01/17/21 01/17/21 History (Zofran) potassium chloride 20 mEq 20 meq PO DAILY 01/17/21 01/17/21 History tablet,extended release(part/cryst) pyridostigmine bromide 60 mg tablet 60 mg FEEDING TUBE TID 01/17/21 01/17/21 History Patient History Medical History (Updated 01/22/21 @ 11:09 by Chelita Ruiz DO) Abnormal electrocardiogram [ECG] [EKG] Bilateral carotid artery disease CKD (chronic kidney disease), stage III Dementia DMII (diabetes mellitus, type 2) Dysphagia causing pulmonary aspiration with swallowing Gout Ischemic cardiomyopathy Myasthenia gravis Presence of combination internal cardiac defibrillator (ICD) and pacemaker Ventricular tachycardia Surgical History (Updated 01/22/21 @ 10:51 by Chelita Ruiz DO) S/P carotid endarterectomy Social History Smoking Status: Unknown if ever smoked Preferred Language: Upper Sorbian Communication Ability: Impaired Beliefs That Will Affect Care: None Current Living Situation: Care Home Feels Safe at Home: Yes Assistive Devices: Oxygen - Continuous Review of Systems Review of Systems: Unobtainable due to cognitive status and Unobtainable due to reduced consciousness Physical Exam Physical Exam: Upon my assessment at bedside, the patient had ceased to breathe. Patient is pulseless. Time of noted to be 1910. Results & Data Results & Data ([facility]) Vital Signs (Past 12 Hours) Vital Signs Temp Pulse Pulse Resp BP BP Pulse Ox 01/25/21 17:58 63 30 H 96 01/25/21 17:04 62 28 H 145/71 H 95 01/25/21 16:55 63 30 H 95 01/25/21 15:48 36.4 C L 64 30 H 172/75 H 100 01/25/21 15:00 63 32 H 93 01/25/21 14:12 63 22 93 01/25/21 14:11 63 18 93 01/25/21 11:29 66 34 H 96 01/25/21 11:18 36.6 C 64 32 H 127/87 96 01/25/21 08:27 64 30 H 93 Coding Level of Care Code 35341 Inpt Consult Level 3 Diagnoses 2019 novel coronavirus-infected pneumonia (NCIP) U07.1; J12.82 Time Spent (min) 32
--- NOTE | 2021-01-25 20:21 | Death Pronouncement Note ---
Date of Service January 25, 2021 Pronouncement Note Admission Date Admission Date: January 17, 2021 Date and Time of Date of : 01/25/21 Time of : 19:11 Contributing Factors (1) Acute respiratory failure with hypoxia: (2) 2019 novel coronavirus-infected pneumonia (NCIP): (3) Myasthenia gravis: (4) Elevated troponin: (5) QT prolongation: (6) DMII (diabetes mellitus, type 2): (7) Gout: (8) Dysphagia causing pulmonary aspiration with swallowing: (9) Dementia: (10) CKD (chronic kidney disease), stage III: (11) Ischemic cardiomyopathy: (12) DVT prophylaxis: Additional Data Confirmation of : no pulse, no respirations, no heart sounds and pupils fixed and dilated Family: contacted Attending physician: Chelita Ruiz DO
[2021-01-25] MEDS ORDERED: INSULIN GLARGINE SOLOSTAR 100 UNITS/ML 3 ML PEN SQ SCH (21:00)
[2021-01-26] MEDS ORDERED: dexAMETHasone 6 MG in SYRINGE 0 ML IV SCH (09:00)
--- NOTE | 2021-01-26 14:54 | Discharge Summary ---
Date of Service January 25, 2021 Admission HPI Per Admitting Provider 75-year-old male with PMH of type 2 diabetes, Dyslipidemia, CAD, HTN, AICD, Dysphagia on peg tube feeding, CKD 3, Myasthenia gravis, B/L carotid artery stenosis with s/p L carotid endarterectomy on 12/03/[address] Rascon present to the ER with worsening SOB due to COVID 19. History obtained from [facility], pt chart and nursing staff at the [facility]. Unvaccinated pt that was texted positive on January 13 for covid 19 and was started on dexamethasone and Levaquin. As per [facility] staff, his breathing has been getting worst. He is on chronic 2L oxygen, but in the last few days his oxygen supplement was increased to 3L NC and his oxygen saturation saturation was in the 85%. Pt said that he feels fatigue and weak. Denies any chest pain, palpitation, dizziness and fever. Discharge Data Allergies Allergy/AdvReac Type Severity Reaction Status Date / Time oxytetracycline Allergy Unknown Verified 01/17/21 17:04 [From Terramycin] Penicillins Allergy Unknown Verified 01/17/21 17:04 Tetracyclines Allergy Unknown Verified 01/17/21 17:04 Consultations 01/17/21 15:39 ED Decision to Admit Stat 01/18/21 11:54 Consult Cardiology Routine 01/22/21 15:17 Consult Palliative Care Routine 01/23/21 18:12 Consult Neurology Routine 01/25/21 16:05 Consult Program Trainer Stat Hospital Course (1) Acute respiratory failure with hypoxia: 2/2 covid pneumonia (2) 2018 novel coronavirus-infected pneumonia (NCIP): Unvaccinated patient tested positive for COVID-19 on 01/13. At that time he was started on dexamethasone and Levaquin daily. [facility] resides in a [facility] and is chronically on 2 L of oxygen. He began to desaturate prompting admission. He was not started on remdesivir secondary to acute kidney injury on admission. Dexamethasone was increased at one point out of concern for MG with ?crisis which was difficult to discern. Neurology was consutled and feels his situation is related to covid pneumonia and that he likely has a muscular dystrophy, not myasthenia. Pyridostigmine was stopped this am and his dexamethasone was decreased back to 6mg IV daily. He currently maintains on max high flow oxygen supplementation for the last couple of days; he is difficult to prone and somewhat resistant to repositioning efforts. He was initially clearing secretions earlier in the stay, but has worsened overnight and saturations are going down. He was placed on BIPAP this am and was not able to be successfully transitioned to Vapotherm. Doesn't appear to have any superimposed bacterial infection. Contacted ICU who will evaluate, however, in light of progressive neuromuscular condition that was already in poor state coming into covid, intubation and mechanical ventilation may not be appropriate. Will again try Lasix 40mg IV now and will obtain CXR to ensure no new changes since last film yesterday. (3) Myasthenia gravis: Generalized weakness. Unconfirmed diagnosis of myasthenia. Never followed up to complete the workup as outpatient prior to all of this. Unresponsive. Per neurology, stopping pyridostigmine at this time. More likely a muscular dystrophy. (4) Elevated troponin: likely related to demand ischemia vs covid in setting of ischemic cardiomypathy. (5) QT prolongation: Initial QTC prolongation of 594. Was notably on Levaquin in addition to amiodarone prior to hospitalization likely causing initial QTC prolongation which then resolved with adjustment in medication. Avoid QTC prolonging agents if able. (6) DMII (diabetes mellitus, type 2): Overall uncontrolled with A1c of 8.7. Continue current insulin therapy. Appreciate inpatient glycemic pharmacy management. (7) Gout: Continue allopurinol per home regimen daily. (8) Dysphagia causing pulmonary aspiration with swallowing: s/p PEG placement. Continues on tube feeds. Cont increased amount of free water in setting of hypernatremia on labwork (9) Dementia: Patient has a high risk of hospital-acquired delirium. Nonspecific dementia at baseline per [facility] notes. (10) CKD (chronic kidney disease), stage III: Initially with acute kidney injury and creatinine of 1.96. Creatinine has now resolved to baseline. Continue to avoid nephrotoxic substances and renally dose meds as needed. (11) Ischemic cardiomyopathy: Known history of ischemic cardiomyopathy status post ICD placement. He is euvolemic to dry on exam. Continue medical management of cardiac disease with Lipitor, Coreg, Plavix, hydralazine/Isordil. Also has a history of ventricular tachycardia and continues on amiodarone 200 mg daily. A paced on telemetry. Ca rdiology following patient. Lasix was held initially in setting of hypernatremia and dry mucous membranes; will consider restarting soon with known reduced EF. (12) DVT prophylaxis: Lovenox Full Code Disposition-very guarded prognosis. Cont current therapies. DO [facility] Discharge Plan Discharge Items Patient Disposition: Other Date/Time: 01/25/21 19:11
== END 2021-01-25 22:22 | disposition expired | DRG 177 ==
LOC: ED 14:09 → 2S 18:12 → SUATTDRO 18:12 → 2S 19:22